=== PATIENT | female | born 1940 | race African-American/Black ===

== ENCOUNTER 2022-12-02 14:10 | Emergency (ER) | payer OTHER, MEDICAID ==
[~2022-12-02] VITALS: Ht 177.8 cm; Wt 87.8 kg
[~2022-12-02 14:10] MED LIST: ACYC-163 PO; ALL300T PO; ASPI325T4 PO; ATE50T PO; DIPH2.5T73 PO; GEMF-19 PO; HYDR-4833 PO
[2022-12-02 16:11] LABS: BUN/Creatinine Ratio 19.4; Calcium 9.1 mg/dL (8.5-10.1); Potassium 4.8 mmol/L (3.5-5.1)
[2022-12-02 16:14] LABS: Bilirubin, Total 0.4 mg/dL (0.2-1.0); Total Protein 7.7 g/dL (6.4-8.2)
[2022-12-02 16:20] LABS: Basophils # (auto) 0.1 10 ^3/uL (0-0.2); Basophils % (auto) 0.9 % (0.0-2.0); Eosinophils # (auto) 0.1 10 ^3/uL (0-0.8); Eosinophils % (auto) 1.6 % (0.0-7.0); Hematocrit 37.3 % (36.0-46.0); Hemoglobin 11.7 g/dL (12.2-16.2); Lymphocytes # (auto) 2.2 10 ^3/uL (0.4-5.4); Lymphocytes % (auto) 29.4 % (10.0-50.0); Mean Corpuscular Hemoglobin 27.2 pg (28.0-32.0); Mean Corpuscular Hgb Conc. 31.3 g/dL (32.0-36.0); Mean Corpuscular Volume 86.8 fL (80.0-100.0); Monocytes # (auto) 0.7 10 ^3/uL (0-1.3); Monocytes % (auto) 9.5 % (0.0-12.0); Neutrophils # (auto) 4.5 10 ^3/uL (1.6-8.6); Neutrophils % (auto) 58.6 % (37.0-80.0); Nucleated Red Blood Cells % 0.1 %; Red Blood Cells 4.29 10^6/uL (4.0-5.20); Red Cell Distribution Width 14.9 % (11.8-14.3); White Blood Cell 7.6 10^3/uL (4.4-10.8)
[2022-12-02] MEDS ORDERED: DOXY100C PO (18:10)
[2022-12-02] MEDS ORDERED: DEXT1SYP9 PO (18:10)
[2022-12-02 19:10] VITALS: BP 166/93
== END 2022-12-02 19:12 | disposition home or self-care (01) ==
LOC: ER 14:10
DX: J44.9 Chronic obstructive pulmonary disease, unspecified (principal); R04.2 Hemoptysis; E78.5 Hyperlipidemia, unspecified; E11.9 Type 2 diabetes mellitus without complications; Z90.710 Acquired absence of both cervix and uterus; Z98.890 Other specified postprocedural states
CPT/HCPCS: 36415; 71046; 80053; 85025

== ENCOUNTER 2023-02-26 08:47 | Emergency (ER) | payer OTHER, MEDICAID ==
[~2023-02-26] VITALS: Ht 177.8 cm; Wt 87.1 kg
[~2023-02-26 08:47] MED LIST changes: -ACET1CAP14 PO
[2023-02-26 10:37] VITALS: BP 140/63
[2023-02-26] MEDS ORDERED: ACETAMINOPHEN 500 MG TAB PO ONE (11:00)
[2023-02-26] MEDS ORDERED: ACET1CAP14 PO (11:05)
== END 2023-02-26 11:18 | disposition home or self-care (01) ==
LOC: ER 08:47
DX: S39.012A Strain of muscle, fascia and tendon of lower back, initial encounter (principal); J44.9 Chronic obstructive pulmonary disease, unspecified; E78.5 Hyperlipidemia, unspecified; I10 Essential (primary) hypertension; Z88.5 Allergy status to narcotic agent; Z88.2 Allergy status to sulfonamides; Z79.899 Other long term (current) drug therapy; Z79.82 Long term (current) use of aspirin; Z90.710 Acquired absence of both cervix and uterus; X58.XXXA Exposure to other specified factors, initial encounter; Y93.89 Activity, other specified; Y92.89 Other specified places as the place of occurrence of the external cause; Y99.8 Other external cause status
CPT/HCPCS: 72100; 93005

== ENCOUNTER → 2023-02-26 | Outpatient (CLI) | payer OTHER ==
[~2023-02-26] MED LIST changes: +ACET1CAP14 PO; +DEXT1SYP9 PO; +DOXY100C PO
[2023-02-26 08:59] LABS: Hematocrit 34.3 % (36.0-46.0); Hemoglobin 11.2 g/dL (12.2-16.2); Mean Corpuscular Hemoglobin 27.8 pg (28.0-32.0); Mean Corpuscular Hgb Conc. 32.7 g/dL (32.0-36.0); Mean Corpuscular Volume 84.9 fL (80.0-100.0); Red Blood Cells 4.04 10^6/uL (4.0-5.20); Red Cell Distribution Width 14.5 % (11.8-14.3); White Blood Cell 7.5 10^3/uL (4.4-10.8)
[2023-02-26 09:07] LABS: Basophils % (manual) 0 (0.0-2.0); Blast Cells 0; Metamyelocytes % 0; Myelocytes % 0; Promyelocytes % 0; Reactive Lymphocytes 0
[2023-02-26 09:23] LABS: Urine Bacteria NONE SEEN /hpf (None Seen); Urine Blood Negative /uL (Negative); Urine Specific Gravity 1.009 (1.001-1.035); Urine WBC 1 /hpf (0 - 5)
[2023-02-26 09:29] LABS: Albumin 3.7 g/dL (3.4-5.0); Calcium 9.5 mg/dL (8.5-10.1); Potassium 3.9 mmol/L (3.5-5.1)
[2023-02-26 09:35] LABS: BUN/Creatinine Ratio 14.3 (10.0-20.0); Bilirubin, Total 0.4 mg/dL (0.2-1.0); Total Protein 7.7 g/dL (6.4-8.2)
[2023-02-26 12:53] LABS: Band Neutrophils % (manual) 1; Eosinophils % (manual) 3 (0-7); Lymphocytes % (manual) 43 (10.0-50.0); Monocytes % (manual) 3 (0-12)
== END | disposition home or self-care (01) ==
LOC: LAB 08:20
PROVIDERS: ATTEND Internal Medicine Hematology & Oncology
DX: J44.9 Chronic obstructive pulmonary disease, unspecified (principal); J20.9 Acute bronchitis, unspecified; H43.12 Vitreous hemorrhage, left eye; E78.5 Hyperlipidemia, unspecified
CPT/HCPCS: 36415; 80053; 80061; 81001; 84439; 84443; 85007; 85027

== ENCOUNTER → 2023-06-11 | Outpatient (CLI) | payer OTHER, MEDICAID ==
[~2023-06-11] MED LIST changes: +ACET1CAP14 PO; -ACYC-163 PO; +ACYC1TAB2 PO; -GEMF-19 PO; +GEMF-66 PO
[2023-06-11 10:10] LABS: Band Neutrophils % (manual) 0; Basophils % (manual) 0 (0.0-2.0); Metamyelocytes % 0
[2023-06-11 10:11] LABS: Blast Cells 0; Myelocytes % 0; Promyelocytes % 0; Reactive Lymphocytes 0
[2023-06-11 10:22] LABS: Nucleated Red Blood Cells % 0.2 %
[2023-06-11 11:06] LABS: Potassium 4.5 mmol/L (3.5-5.1)
[2023-06-11 11:26] LABS: Albumin 3.7 g/dL (3.4-5.0); BUN/Creatinine Ratio 16.7 (10.0-20.0); Bilirubin, Total 0.4 mg/dL (0.2-1.0); Calcium 9.6 mg/dL (8.5-10.1); Total Protein 7.4 g/dL (6.4-8.2)
[2023-06-11 12:30] LABS: Lymphocytes % (manual) 42 (10.0-50.0)
[2023-06-11 12:31] LABS: Eosinophils % (manual) 3 (0-7); Monocytes % (manual) 11 (0-12)
== END | disposition home or self-care (01) ==
LOC: LAB 09:52
PROVIDERS: ATTEND Internal Medicine Hematology & Oncology
DX: Z13.6 Encounter for screening for cardiovascular disorders (principal); E78.5 Hyperlipidemia, unspecified; E78.1 Pure hyperglyceridemia
CPT/HCPCS: 36415; 80053; 80061; 84439; 84443

== ENCOUNTER 2023-08-14 10:04 | Emergency (ER) | payer OTHER, MEDICAID ==
[~2023-08-14] VITALS: Ht 177.8 cm; Wt 82.4 kg
[2023-08-14 10:55] VITALS: BP 160/74; PULSE 64; RESP 16; TEMP 97.3; O2SAT 96
[2023-08-14] MEDS ORDERED: MELO7.5T7 PO (12:40)
== END 2023-08-14 12:42 | disposition home or self-care (01) ==
LOC: ER 10:04
DX: M16.12 Unilateral primary osteoarthritis, left hip (principal); J44.9 Chronic obstructive pulmonary disease, unspecified; E78.5 Hyperlipidemia, unspecified; I10 Essential (primary) hypertension; Z88.2 Allergy status to sulfonamides; Z79.899 Other long term (current) drug therapy; Z79.82 Long term (current) use of aspirin; Z90.710 Acquired absence of both cervix and uterus
CPT/HCPCS: 73502; 74176

== ENCOUNTER → 2023-09-04 | Outpatient (CLI) | payer OTHER, MEDICAID ==
[~2023-09-04] MED LIST changes: +MELO7.5T7 PO
[2023-09-04 10:18] LABS: Basophils # (auto) 0.1 10 ^3/uL (0-0.2); Basophils % (auto) 1.3 % (0.0-2.0); Eosinophils # (auto) 0.2 10 ^3/uL (0-0.8); Eosinophils % (auto) 2.6 % (0.0-7.0); Hematocrit 35.5 % (36.0-46.0); Hemoglobin 11.3 g/dL (12.2-16.2); Lymphocytes # (auto) 2.4 10 ^3/uL (0.4-5.4); Lymphocytes % (auto) 33.8 % (10.0-50.0); Mean Corpuscular Hemoglobin 27.3 pg (28.0-32.0); Mean Corpuscular Hgb Conc. 31.8 g/dL (32.0-36.0); Mean Corpuscular Volume 85.8 fL (80.0-100.0); Monocytes # (auto) 0.8 10 ^3/uL (0-1.3); Neutrophils # (auto) 3.6 10 ^3/uL (1.6-8.6); Neutrophils % (auto) 51.3 % (37.0-80.0); Nucleated Red Blood Cells % 0.1 %; Red Blood Cells 4.14 10^6/uL (4.0-5.20)
[2023-09-04 10:53] LABS: Alkaline Phosphatase 82 U/L (46-116)
[2023-09-04 10:54] LABS: Albumin 4.4 g/dL (3.2-4.8); Anion Gap 7 (5-15); Aspartate Aminotransferase 16 U/L (13-40); BUN/Creatinine Ratio 15.7 (10.0-20.0); Blood Urea Nitrogen 13 mg/dL (9-23); Calcium 9.4 mg/dL (8.5-10.1); Carbon Dioxide 27 mmol/L (20-30); Chloride 105 mmol/L (98-107); Cholesterol 147 mg/dL (< 200); Glucose 85 mg/dL (74-106); LDL Cholesterol 62 mg/dL (< 100); Potassium 4.6 mmol/L (3.5-5.1); Sodium 139 mmol/L (136-145)
[2023-09-04 10:55] LABS: Bilirubin, Total 0.4 mg/dL (0.2-1.0)
[2023-09-04 11:30] LABS: Alanine Aminotransferase < 9 U/L (7-40)
== END | disposition home or self-care (01) ==
LOC: LAB 09:53
PROVIDERS: ATTEND Internal Medicine Hematology & Oncology
DX: N18.30 Chronic kidney disease, stage 3 unspecified (principal); E78.5 Hyperlipidemia, unspecified
CPT/HCPCS: 36415; 80053; 82465; 83721; 85025

== ENCOUNTER → 2024-03-10 | Outpatient (CLI) | payer OTHER, MEDICAID ==
[~2024-03-10] MED LIST changes: -ASPI325T4 PO; +ASPI325T6 PO
[2024-03-10 11:10] LABS: Basophils # (auto) 0.1 10 ^3/uL (0-0.2); Basophils % (auto) 1.2 % (0.0-2.0); Eosinophils # (auto) 0.1 10 ^3/uL (0-0.8); Eosinophils % (auto) 1.6 % (0.0-7.0); Hematocrit 35.7 % (36.0-46.0); Hemoglobin 11.5 g/dL (12.2-16.2); Lymphocytes # (auto) 1.8 10 ^3/uL (0.4-5.4); Lymphocytes % (auto) 26.8 % (10.0-50.0); Mean Corpuscular Hemoglobin 27.8 pg (28.0-32.0); Mean Corpuscular Hgb Conc. 32.3 g/dL (32.0-36.0); Mean Corpuscular Volume 86.3 fL (80.0-100.0); Monocytes # (auto) 0.6 10 ^3/uL (0-1.3); Monocytes % (auto) 9.6 % (0.0-12.0); Neutrophils # (auto) 4.1 10 ^3/uL (1.6-8.6); Neutrophils % (auto) 60.8 % (37.0-80.0); Nucleated Red Blood Cells % 0.1 %; Red Blood Cells 4.14 10^6/uL (4.0-5.20); Red Cell Distribution Width 15.1 % (11.8-14.3); White Blood Cell 6.8 10^3/uL (4.4-10.8)
[2024-03-10 12:01] LABS: Alkaline Phosphatase 83 U/L (46-116); Anion Gap 8 (5-15); BUN/Creatinine Ratio 18.7 (10.0-20.0); Blood Urea Nitrogen 17 mg/dL (9-23); Calcium 9.6 mg/dL (8.5-10.1); Carbon Dioxide 24 mmol/L (20-30); Chloride 107 mmol/L (98-107); Glucose 97 mg/dL (74-106); LDL Cholesterol 54 mg/dL (< 100); Potassium 3.7 mmol/L (3.5-5.1); Sodium 139 mmol/L (136-145); Triglycerides 89 mg/dL (< 150)
[2024-03-10 12:02] LABS: Albumin 4.4 g/dL (3.2-4.8); Aspartate Aminotransferase 17 U/L (13-40); Cholesterol 153 mg/dL (< 200); HDL Cholesterol 74 mg/dL (40-59)
[2024-03-10 12:03] LABS: Thyroid Stimulating Hormone 2.41 uIU/mL (0.55-4.78); Total Protein 7.2 g/dL (5.7-8.2)
[2024-03-10 12:16] LABS: Bilirubin, Total 0.5 mg/dL (0.2-1.0)
[2024-03-10 12:23] LABS: Alanine Aminotransferase < 9 U/L (7-40)
[2024-03-10 15:08] LABS: Urine Blood Negative /uL (Negative); Urine Clarity Clear (Clear); Urine Color Light-Yellow (Yellow); Urine Hyaline Cast FEW /lpf (0 - 2); Urine Mucus FEW (None Seen); Urine Protein, UAD Negative (Negative); Urine Specific Gravity 1.014 (1.001-1.035); Urine Urobilinogen Normal (Negative); Urine WBC 1 /hpf (0 - 5); Urine pH 5.5 (5.0-9.0)
[2024-03-10 16:01] LABS: Urine Bacteria NONE SEEN /hpf (None Seen)
[2024-03-18 19:06] LABS: Vitamin D 25-Hydroxy 7.8 ng/mL (.); Vitamin D-2 25-Hydroxy <1.0 ng/mL (.); Vitamin D-3 25-Hydroxy 7.7 ng/mL (.)
== END | disposition home or self-care (01) ==
LOC: LAB 10:32
PROVIDERS: ATTEND Internal Medicine Hematology & Oncology
DX: I34.0 Nonrheumatic mitral (valve) insufficiency (principal); E78.1 Pure hyperglyceridemia; I25.9 Chronic ischemic heart disease, unspecified; R73.03 Prediabetes; K21.9 Gastro-esophageal reflux disease without esophagitis; Z79.899 Other long term (current) drug therapy
CPT/HCPCS: 36415; 80053; 80061; 81001; 82306; 83036; 83615; 84443; 85025

== ENCOUNTER → 2024-03-18 | Outpatient (CLI) | payer OTHER, MEDICAID | END | disposition home or self-care (01) | LOC: LAB 06:43 | PROVIDERS: ATTEND Internal Medicine Hematology & Oncology | DX: Z12.11 Encounter for screening for malignant neoplasm of colon (principal) | CPT/HCPCS: 82270 ==

== ENCOUNTER → 2024-06-02 | Outpatient (CLI) | payer OTHER, MEDICAID ==
[2024-06-02 08:41] LABS: Urine Bacteria None Seen /hpf (None Seen)
[2024-06-02 09:08] LABS: Basophils # (auto) 0.1 10 ^3/uL (0-0.2); Basophils % (auto) 1.2 % (0.0-2.0); Eosinophils # (auto) 0.1 10 ^3/uL (0-0.8); Eosinophils % (auto) 1.8 % (0.0-7.0); Hematocrit 36.9 % (36.0-46.0); Hemoglobin 11.9 g/dL (12.2-16.2); Lymphocytes # (auto) 2.6 10 ^3/uL (0.4-5.4); Lymphocytes % (auto) 36.3 % (10.0-50.0); Mean Corpuscular Hemoglobin 28.3 pg (28.0-32.0); Mean Corpuscular Hgb Conc. 32.2 g/dL (32.0-36.0); Mean Corpuscular Volume 87.8 fL (80.0-100.0); Monocytes # (auto) 0.8 10 ^3/uL (0-1.3); Monocytes % (auto) 11.3 % (0.0-12.0); Neutrophils # (auto) 3.6 10 ^3/uL (1.6-8.6); Neutrophils % (auto) 49.4 % (37.0-80.0); Nucleated Red Blood Cells % 0.1 %; White Blood Cell 7.2 10^3/uL (4.4-10.8)
[2024-06-02 09:22] LABS: Urine Blood Negative /uL (Negative); Urine Clarity Clear (Clear); Urine Color Colorless (Yellow); Urine Protein, UAD Negative (Negative); Urine Specific Gravity 1.008 (1.001-1.035); Urine Urobilinogen Normal (Negative); Urine WBC 1 /hpf (0 - 5)
[2024-06-02 09:54] LABS: Albumin 4.4 g/dL (3.2-4.8); Alkaline Phosphatase 77 U/L (46-116); Anion Gap 7 (5-15); Aspartate Aminotransferase 15 U/L (13-40); BUN/Creatinine Ratio 22.9 (10.0-20.0); Blood Urea Nitrogen 22 mg/dL (9-23); Carbon Dioxide 25 mmol/L (20-30); Chloride 108 mmol/L (98-107); Cholesterol 164 mg/dL (< 200); Glucose 89 mg/dL (74-106); LDL Cholesterol 66 mg/dL (< 100); Potassium 4.4 mmol/L (3.5-5.1); Sodium 140 mmol/L (136-145); Triglycerides 65 mg/dL (< 150)
[2024-06-02 09:55] LABS: Bilirubin, Direct 0.2 mg/dL (<0.3); Bilirubin, Total 0.5 mg/dL (0.2-1.0); HDL Cholesterol 79 mg/dL (40-59); Total Protein 6.8 g/dL (5.7-8.2)
[2024-06-02 10:08] LABS: Alanine Aminotransferase < 9 U/L (7-40)
== END | disposition home or self-care (01) ==
LOC: LAB 08:22
PROVIDERS: ATTEND Internal Medicine Hematology & Oncology
DX: I10 Essential (primary) hypertension (principal); Z96.651 Presence of right artificial knee joint
CPT/HCPCS: 36415; 80048; 80061; 80076; 81001; 83036; 83615; 85025; 87086

== ENCOUNTER → 2024-09-23 | Outpatient (CLI) | payer OTHER, MEDICAID ==
[2024-09-23 11:42] LABS: Basophils # (auto) 0.1 10 ^3/uL (0-0.2); Basophils % (auto) 1.1 % (0.0-2.0); Eosinophils # (auto) 0.1 10 ^3/uL (0-0.8); Eosinophils % (auto) 1.3 % (0.0-7.0); Hematocrit 35.3 % (36.0-46.0); Hemoglobin 11.6 g/dL (12.2-16.2); Lymphocytes # (auto) 1.7 10 ^3/uL (0.4-5.4); Lymphocytes % (auto) 22.8 % (10.0-50.0); Mean Corpuscular Hemoglobin 28.9 pg (28.0-32.0); Mean Corpuscular Hgb Conc. 32.8 g/dL (32.0-36.0); Monocytes # (auto) 0.7 10 ^3/uL (0-1.3); Monocytes % (auto) 9.4 % (0.0-12.0); Neutrophils # (auto) 4.8 10 ^3/uL (1.6-8.6); Neutrophils % (auto) 65.4 % (37.0-80.0); Nucleated Red Blood Cells % 0.1 %; Platelet Count (auto) 256 10^3/uL (140-450); Red Blood Cells 4.01 10^6/uL (4.0-5.20); Red Cell Distribution Width 15.3 % (11.8-14.3); White Blood Cell 7.3 10^3/uL (4.4-10.8)
[2024-09-23 12:03] LABS: Alanine Aminotransferase 10 U/L (7-40); Alkaline Phosphatase 65 U/L (46-116); Anion Gap 4 (5-15); Aspartate Aminotransferase 12 U/L (13-40); Blood Urea Nitrogen 17 mg/dL (9-23); Calcium 10.1 mg/dL (8.7-10.4); Carbon Dioxide 30 mmol/L (20-31); Chloride 103 mmol/L (98-107); Glucose 94 mg/dL (74-106); LDL Cholesterol 72 mg/dL (< 100); Sodium 137 mmol/L (136-145); Triglycerides 76 mg/dL (< 150)
[2024-09-23 12:04] LABS: Albumin 4.3 g/dL (3.2-4.8); Bilirubin, Total 0.5 mg/dL (0.2-1.0); Cholesterol 176 mg/dL (< 200); HDL Cholesterol 83 mg/dL (40-59); Total Protein 7.2 g/dL (5.7-8.2)
== END | disposition home or self-care (01) ==
LOC: LAB 10:48
PROVIDERS: ATTEND Internal Medicine Hematology & Oncology
DX: I11.9 Hypertensive heart disease without heart failure (principal); I25.9 Chronic ischemic heart disease, unspecified; E78.5 Hyperlipidemia, unspecified; I34.9 Nonrheumatic mitral valve disorder, unspecified; F11.20 Opioid dependence, uncomplicated; M25.50 Pain in unspecified joint; H35.3210 Exudative age-related macular degeneration, right eye, stage unspecified
CPT/HCPCS: 36415; 80053; 80061; 82306; 83036; 84443; 85025

== ENCOUNTER → 2024-12-29 | Outpatient (CLI) | payer OTHER, MEDICAID ==
[2024-12-29 11:22] LABS: Basophils # (auto) 0.1 10 ^3/uL (0-0.2); Basophils % (auto) 1.4 % (0.0-2.0); Eosinophils # (auto) 0.1 10 ^3/uL (0-0.8); Eosinophils % (auto) 1.8 % (0.0-7.0); Hematocrit 36.4 % (36.0-46.0); Hemoglobin 11.7 g/dL (12.2-16.2); Lymphocytes # (auto) 2.1 10 ^3/uL (0.4-5.4); Mean Corpuscular Hemoglobin 27.8 pg (28.0-32.0); Mean Corpuscular Hgb Conc. 32.1 g/dL (32.0-36.0); Mean Corpuscular Volume 86.4 fL (80.0-100.0); Monocytes # (auto) 0.7 10 ^3/uL (0-1.3); Monocytes % (auto) 10.9 % (0.0-12.0); Neutrophils # (auto) 3.2 10 ^3/uL (1.6-8.6); Neutrophils % (auto) 51.9 % (37.0-80.0); Nucleated Red Blood Cells % 0.2 %; Platelet Count (auto) 259 10^3/uL (140-450); Red Blood Cells 4.21 10^6/uL (4.0-5.20); Red Cell Distribution Width 14.4 % (11.8-14.3); White Blood Cell 6.1 10^3/uL (4.4-10.8)
[2024-12-29 12:39] LABS: Alkaline Phosphatase 64 U/L (46-116); Anion Gap 13 (5-15); BUN/Creatinine Ratio 20.4 (10.0-20.0); Blood Urea Nitrogen 19 mg/dL (9-23); Calcium 10.3 mg/dL (8.7-10.4); Carbon Dioxide 22 mmol/L (20-31); Chloride 105 mmol/L (98-107); Glucose 83 mg/dL (74-106); Sodium 140 mmol/L (136-145)
[2024-12-29 12:40] LABS: Albumin 4.6 g/dL (3.2-4.8); Aspartate Aminotransferase 16 U/L (13-40)
[2024-12-29 12:41] LABS: Bilirubin, Total 0.7 mg/dL (0.2-1.0)
[2024-12-29 12:42] LABS: Alanine Aminotransferase < 9 U/L (7-40)
[2024-12-30 15:55] LABS: Cholesterol 163 mg/dL (< 200); Triglycerides 91 mg/dL (< 150)
[2024-12-30 15:56] LABS: HDL Cholesterol 79 mg/dL (40-59); LDL Cholesterol 64 mg/dL (< 100)
== END | disposition home or self-care (01) ==
LOC: LAB 09:53
PROVIDERS: ATTEND Internal Medicine Hematology & Oncology
DX: I34.9 Nonrheumatic mitral valve disorder, unspecified (principal); I10 Essential (primary) hypertension; I25.9 Chronic ischemic heart disease, unspecified; E78.5 Hyperlipidemia, unspecified; H35.3210 Exudative age-related macular degeneration, right eye, stage unspecified; M25.50 Pain in unspecified joint; F11.20 Opioid dependence, uncomplicated
CPT/HCPCS: 36415; 80053; 80061; 82306; 83036; 84443; 85025

== ENCOUNTER → 2025-04-01 | Outpatient (CLI) | payer OTHER, MEDICAID ==
[2025-04-01 14:23] LABS: Basophils # (auto) 0 10 ^3/uL (0-0.2); Basophils % (auto) 0.2 % (0.0-2.0); Eosinophils # (auto) 0.1 10 ^3/uL (0-0.8); Eosinophils % (auto) 1.8 % (0.0-7.0); Hematocrit 34.8 % (36.0-46.0); Hemoglobin 11.2 g/dL (12.2-16.2); Lymphocytes # (auto) 2.6 10 ^3/uL (0.4-5.4); Lymphocytes % (auto) 42.7 % (10.0-50.0); Mean Corpuscular Hemoglobin 28.1 pg (28.0-32.0); Mean Corpuscular Hgb Conc. 32.2 g/dL (32.0-36.0); Mean Corpuscular Volume 87.3 fL (80.0-100.0); Monocytes # (auto) 0.7 10 ^3/uL (0-1.3); Monocytes % (auto) 11.7 % (0.0-12.0); Neutrophils # (auto) 2.7 10 ^3/uL (1.6-8.6); Neutrophils % (auto) 43.6 % (37.0-80.0); Nucleated Red Blood Cells % 0.1 %; Platelet Count (auto) 230 10^3/uL (140-450); Red Blood Cells 3.99 10^6/uL (4.0-5.20); Red Cell Distribution Width 14.9 % (11.8-14.3); White Blood Cell 6.1 10^3/uL (4.4-10.8)
[2025-04-01 14:42] LABS: Albumin 4.6 g/dL (3.2-4.8); Alkaline Phosphatase 70 U/L (46-116); Anion Gap 9 (5-15); Aspartate Aminotransferase 15 U/L (13-40); BUN/Creatinine Ratio 21.2 (10.0-20.0); Blood Urea Nitrogen 21 mg/dL (9-23); Calcium 10.1 mg/dL (8.7-10.4); Carbon Dioxide 25 mmol/L (20-31); Chloride 105 mmol/L (98-107); Glucose 82 mg/dL (74-106); LDL Cholesterol 57 mg/dL (< 100); Potassium 4.2 mmol/L (3.5-5.1); Sodium 139 mmol/L (136-145); Total Protein 7.2 g/dL (5.7-8.2); Triglycerides 77 mg/dL (< 150)
[2025-04-01 14:43] LABS: Cholesterol 145 mg/dL (< 200)
[2025-04-01 14:44] LABS: Alanine Aminotransferase < 9 U/L (7-40); Bilirubin, Total 0.4 mg/dL (0.2-1.0); HDL Cholesterol 60 mg/dL (40-59)
== END | disposition home or self-care (01) ==
LOC: LAB 13:52
PROVIDERS: ATTEND Internal Medicine Hematology & Oncology
DX: I10 Essential (primary) hypertension (principal); I34.9 Nonrheumatic mitral valve disorder, unspecified; I25.9 Chronic ischemic heart disease, unspecified; E78.5 Hyperlipidemia, unspecified; H35.3210 Exudative age-related macular degeneration, right eye, stage unspecified; M25.50 Pain in unspecified joint; F11.20 Opioid dependence, uncomplicated
CPT/HCPCS: 36415; 80053; 80061; 82306; 83036; 84443; 85025

== ENCOUNTER 2025-05-18 11:23 | Inpatient (IN) | payer OTHER, MEDICAID ==
[~2025-05-18] VITALS: Ht 177.8 cm; Wt 84.9 kg
--- NOTE | 2025-05-18 12:00 | ED.PDOC ---
HPI Comments 84 y.o female with PMHx of HTN, COPD, HLD, hypoglycemia, presents tot he ED for an evaluation of high blood pressure. Patient reports around [id number] today she developed left chest tightness and SOB that has since resolved. Patient presents with blood pressure of 175/92. Patient is compliant with medications. Patient denies any nausea, vomiting, diarrhea, abdominal pain, fever, chills. Chief Complaint: High Blood Pressure Time Seen by MD: 11:51 Primary Care Provider: MARLON Reviewed Notes: Nurses Notes, Medications, Allergies Allergies: Coded Allergies: Morphine (Verified Allergy, Severe, 09/20/13) Sulfa Drugs (Verified Allergy, Unknown, 05/26/19) Home Meds Active Scripts Meloxicam (Meloxicam) 7.5 Mg Tab, 7.5 MG PO BID, #30 TAB Prov:LAZ CABRERA 08/14/23 Acetaminophen (Tylenol) 325 Mg Cap, 325 MG PO Q4HPRN PRN, #30 CAP 0 Refills Take 1-2 caps po q4h prn for pain. (Do not exceed 3,000mg of acetaminophen in 24 hours) Prov:LINDA ROSEN DOCUMENTATION CLERK 02/26/23 Dextromethorphan-Guaifenesin (Robitussin-Dm) 10 Ml Sr, 10 ML PO BID for 10 Days, #200 SYP Prov:FUAD VALENCIA MD 12/02/22 Doxycycline Hyclate (Vibramycin) 100 Mg Cap, 1 CAP PO BID for 10 Days, #20 CAP Prov:FUAD VALENCIA MD 12/02/22 Reported Medications Hydrocodone-Acetaminophen ([place] 5/325MG) 1 Tab Tb, 1 TAB PO Q6HP PRN for PAIN SCALE 1 THRU 6, #90 TAB 05/27/19 Diphenoxylate W/ Atropine (Lomotil) 2.5 Mg Tab, 1 TAB PO TID PRN for FOR DIARRHEA, #30 TAB 05/27/19 Gemfibrozil (Gemfibrozil) 600 Mg Tab, 1 TAB PO DAILY, #60 TAB 5 Refills 05/27/19 Atenolol (TENORMIN TABLET) 50 Mg Tb, 1 TAB PO DAILY, #30 TAB 5 Refills 05/27/19 Allopurinol (ZYLOPRIM TABLET) 300 Mg Tb, 1 TAB PO DAILY, #30 TAB 5 Refills 05/27/19 Aspirin (Aspirin) 325 Mg Tab, 1 TAB PO DAILY, #30 TAB 5 Refills 05/27/19 Acyclovir (Acyclovir) 400 Mg Tab, 400 MG PO BID, TAB 05/27/19 Information Source: Patient Mode of Arrival: Ambulatory Severity: Moderate Timing: Hours Duration: Since onset Location: Chest (L) Radiation: No Radiation Quality: Tightness Onset: At Rest Cardiac Risk Factors: Family History, Hyperlipidemia, HTN PE Risk Factors: None History of: None Associated Signs and Symptoms: SOB Past Medical History PAST MEDICAL HISTORY: COPD, Gout, High Lipids, HTN Surgical History: Hysterectomy Surgical History (Other): heart valve replacement, bilateral knee replacement ADAPTIVE PHYSICAL EDUCATOR History: No Pertinent ADAPTIVE PHYSICAL EDUCATOR History Family History Family History: Reviewed,noncontributory to illness Social History Smoker: Non-Smoker Alcohol: Occasionally Drugs: Denies Drug Use Lives In: Home Constitutional: denies: chills, diaphoresis, fatigue, fever, malaise, sweats, weakness, others EENTM: denies: blurred vision, double vision, ear bleeding, ear discharge, ear drainage, ear pain, ear ringing, eye pain, eye redness, hearing loss, mouth pain, mouth swelling, nasal discharge, nose bleeding, nose congestion, nose pain, photophobia, tearing, throat pain, throat swelling, voice changes, others Respiratory: reports: SOB at rest, shortness of breath; denies: cough, hemoptysis, orthopnea, SOB with excertion, stridor, wheezing, others Cardiovascular: denies: chest pain, dizzy spells, diaphoresis, Dyspnea on exertion, edema, irregular heart beat, left arm pain, lightheadedness, palpitations, PND, syncope, others Gastrointestinal: denies: abdomen distended, abdominal pain, blood streaked bowels, constipated, diarrhea, dysphagia, difficulty swallowing, hematemesis, melena, nausea, poor appetite, poor fluid intake, rectal bleeding, rectal pain, vomiting, others Genitourinary: denies: abnormal vagina bleeding, burning, dyspareunia, dysuria, flank pain, frequency, hematuria, incontinence, pain, , vagina discharge, urgency, others Neurological: denies: dizziness, fainting, headache, left sided numbness, left sided weakness, numbness, paresthesia, pre-existing deficit, right sided numbness, right sided weakness, seizure, speech problems, tingling, tremors, weakness, others Musculoskeletal: denies: back pain, gout, joint pain, joint swelling, muscle pain, muscle stiffness, neck pain, others Integumetry: denies: bruises, change in color, change in hair/nails, dryness, laceration, lesions, lumps, rash, wounds, others Allergic/Immunocompromised: denies: Difficulty Healing, Frequent Infections, Hives, Itching, others Hematologic/Lymphatic: denies: anemia, blood clots, easy bleeding, easy bruising, swollen glands, others Endocrine: denies: excessive hunger, excessive sweating, excessive thirst, excessive urination, flushing, intolerance to cold, intolerance to heat, unexplained weight gain, unexplained weight loss, others Psychiatric: denies: anxiety, bipolar disorder, depression, hopeless, panic disorder, schizophrenia, sleepless, suicidal, others All Other Systems: Reviewed and Negative Physical Exam General Appearance: Moderate Distress HEENT: Pale Conjuntivae (L), Pale Conjuntivae (R), Pharynx Normal, TMs Normal Neck: Full Range of Motion, Non-Tender, Normal, Normal Inspection Respiratory: Chest Non-Tender, Lungs Clear, No Accessory Muscle Use, No Respiratory Distress, Normal Breath Sounds Cardiovascular: No Edema, No JVD, No Murmur, No Gallop, Normal Peripheral Pulses, Regular Rate/Rhythm Breast Exam: Deferred Gastrointestinal: No Organomegaly, Non Tender, No Pulsatile Mass, Normal Bowel Sounds, Soft Genitalia: Deferred Pelvic: Deferred Rectal: Deferred Extremities: No calf tenderness, Normal capillary refill, No pedal edema Musculoskeletal : Apperance: Normal Neurologic: Alert, finish mixer II-XII nml as Tested, Motor Weakness, Normal Affect, Normal Mood, No Sensory Deficits Cerebellar Function: Normal Reflexes: Normal Skin: Dry, Normal Color, Warm Lymphatic: No Adenopathy EKG EKG : Pulse Rate (adult): 63 Cardiac Rhythm: NSR Block: RBBB (incomplete ) Was a procedure done? Was a procedure done?: No CP Differential Dx Differential Diagnosis: N/A Differential Diagnosis: HTN Essential, HTN Accelerated, HTN Encephalopathy Differential Diagnosis: Angina, Chest Wall Pain, Cholelithiasis, Myocardial Infarction, Pericarditis X-Ray, Labs, Meds, VS Vital Signs Date Time Temp Pulse Resp B/P (MAP) Pulse Ox O2 Delivery O2 Flow Rate FiO2 05/18/25 14:32 59 05/18/25 13:30 63 202/101 05/18/25 12:01 97.9 80 18 175/92 (119) 95 97.9 05/18/25 12:00 63 05/18/25 11:49 63 Lab Test 05/18/25 16:07 05/18/25 15:42 05/18/25 13:44 05/18/25 12:48 Range/Units Urine Color Light-yellow Yellow Urine Clarity Clear Clear Urine pH 6.0 5.0-9.0 Urine Specific [place] 1.014 1.001-1.035 Urine Protein Negative Negative Urine Ketones Negative Negative Urine Blood Negative Negative /uL Urine Nitrite Negative Negative Urine Bilirubin Negative Negative Urine Urobilinogen Normal Negative mg/dL Urine Leukocyte Esterase Negative Negative /uL Urine RBC <1 0 - 4 /hpf Urine Microscopic WBC 2 0-5 /HPF Urine Squamous Epithelial Cells Few <5 /hpf Urine Bacteria None seen None Seen /hpf Urine Glucose Normal Normal mg/dL Urine Opiates Screen Neg NEGATIVE Urine Fentanyl Screen Neg NEGATIVE Urine Barbiturates Screen Neg NEGATIVE Urine Phencyclidine Screen Neg NEGATIVE Urine Amphetamines Screen Neg NEGATIVE Urine Benzodiazepines Screen Neg NEGATIVE Urine Cocaine Screen Neg NEGATIVE Urine Cannabinoids Screen Neg NEGATIVE Troponin I High Sensitivity 56 *H 58 *H 59 *H </=34 ng/L White Blood Count 6.8 4.4-10.8 10^3/uL Red Blood Count 4.09 4.0-5.20 10^6/uL Hemoglobin 11.5 L 12.2-16.2 g/dL Hematocrit 36.0 36.0-46.0 % Mean Corpuscular Volume 88.1 80.0-100.0 fL Mean Corpuscular Hemoglobin 28.1 28.0-32.0 pg Mean Corpuscular Hemoglobin Concent 31.9 L 32.0-36.0 g/dL Red Cell Distribution Width 14.4 H 11.8-14.3 % Platelet Count 235 140-450 10^3/uL Mean Platelet Volume 8.6 6.9-10.8 fL Neutrophils (%) (Auto) 56.2 37.0-80.0 % Lymphocytes (%) (Auto) 30.3 10.0-50.0 % Monocytes (%) (Auto) 10.9 0.0-12.0 % Eosinophils (%) (Auto) 1.4 0.0-7.0 % Basophils (%) (Auto) 1.2 0.0-2.0 % Neutrophils # (Auto) 3.8 1.6-8.6 10 ^3/uL Lymphocytes # (Auto) 2.1 0.4-5.4 10 ^3/uL Monocytes # (Auto) 0.7 0-1.3 10 ^3/uL Eosinophils # (Auto) 0.1 0-0.8 10 ^3/uL Basophils # (Auto) 0.1 0-0.2 10 ^3/uL Nucleated Red Blood Cells 0.0 % Prothrombin Time 10.9 9.3-11.8 sec Prothrombin Time INR 1.03 0.9-1.15 Sodium Level 141 136-145 mmol/L Potassium Level 3.8 3.5-5.1 mmol/L Chloride Level 108 H 98-107 mmol/L Carbon Dioxide Level 24 20-31 mmol/L Anion Gap 9 5-15 Blood Urea Nitrogen 17 9-23 mg/dL Creatinine 1.37 H 0.550-1.02 mg/dL Glomerular Filtration Rate Calc 39 >90 mL/min BUN/Creatinine Ratio 12.4 10.0-20.0 Serum Glucose 107 H 74-106 mg/dL Hemoglobin A1c 5.4 <5.7 % A1C Calcium Level 9.9 8.7-10.4 mg/dL Magnesium Level 1.9 1.6-2.6 mg/dL B-Type Natriuretic Peptide 411.03 0-100 pg/mL Triglycerides Level 59 < 150 mg/dL Cholesterol Level 138 < 200 mg/dL LDL Cholesterol 47 < 100 mg/dL HDL Cholesterol 73 H 40-59 mg/dL Current Medications Medications (Trade) Dose Ordered Sig/Alexa Route Start Time Stop Time Status Last Admin Aspirin 162 mg ONCE ONCE PO 05/18/25 12:00 05/18/25 12:03 DC 05/18/25 12:00 Atorvastatin Calcium (Lipitor) 80 mg ONCE ONCE PO 05/18/25 13:30 05/18/25 13:31 DC 05/18/25 13:30 Metoprolol Tartrate (Lopressor Tablet) 25 mg ONCE ONCE PO 05/18/25 13:30 05/18/25 13:31 DC 7/7/25 13:30 EXAM: XY CHEST TWO VIEWS ROUTINE IMPRESSION: Postoperative changes of the heart without evidence of acute intrathoracic process. IV Hep-Lock was established. After seeing the 1st EKGs there was a concern about some ST-T changes so we did send the EKG to Dr. Mckeon who is the genetic counselor on-call We determined that this is not a STEMI. The patient had the 1st troponin came back at 58 and the 2nd one at 59 The patient is being admitted at this time The patient did receive aspirin here in the emergency department's The BNP is 411 The creatinine is 1.37 The rest of the CBC and chemistry panel are within normal limits The patient is admitted at this time Images Reviewed?: Images reviewed and evaluated by me Time of 1ST Reevaluation: 12:00 Reevaluation 1ST: Unchanged Patient Education/Counseling: Diagnosis, Treatment, Prognosis Family Education/Counseling: No Family Present SEPSIS Sepsis Screen Physician Orders Chest Two Views Routine (05/18/25 11:59) Heplock Iv (05/18/25 11:59) Electronic Development Technician (05/18/25 11:59) Blood Pressure (05/18/25 11:59) Pulse Oximetry (05/18/25 11:59) Electrocardigram (05/18/25 11:59) Electrocardigram (05/18/25 12:59) Electrocardigram (05/18/25 14:59) Aspirin Tablet (05/19/25 10:00) Metoprolol Tartrate Tablet (Lopressor Ta (05/18/25 22:00) Amlodipine Tablet (Norvasc Tablet) (05/19/25 10:00) Atorvastatin (Lipitor) (05/19/25 22:00) Losartan Tablet (Cozaar Tablet) (05/19/25 10:00) Hydralazine Injection (Apresoline Inject (05/18/25 16:30) Allopurinol Tablet (Zyloprim Tablet) (05/19/25 10:00) Allergies (05/18/25 16:28) Code Status (05/18/25 16:28) Sodium Chloride Lock (Saline Lock Ns) (05/18/25 22:00) Oxygen Per Hour (05/18/25 16:28) Hydrocodone-Acet 5/325mg Tab ([place] 5/32 (05/18/25 16:30) Ondansetron Hcl (Zofran) (05/18/25 16:30) Docusate Sodium Capsule (Colace Capsule) (05/18/25 16:30) Fall Risk Precautions In Place QSHIFT (05/18/25 16:28) Complete Blood Count (05/19/25 04:00) Comprehensive Metabolic Panel (05/19/25 04:00) Cardiac Diet-2gna,Lofat,Lochol (05/18/25 Dinner) Condition: Serious (05/18/25 16:28) Acetaminophen Tablet (Tylenol Tablet) (05/18/25 16:30) Maintain Bed Rest (05/18/25 16:28) Sequential Compression Device (05/18/25 ) Vital Signs Date Time Temp Pulse Resp B/P (MAP) Pulse Ox O2 Delivery O2 Flow Rate FiO2 05/18/25 14:32 59 05/18/25 13:30 63 202/101 05/18/25 12:01 97.9 80 18 175/92 (119) 95 97.9 05/18/25 12:00 63 05/18/25 11:49 63 Laboratory Tests Test 05/18/25 12:48 White Blood Count 6.8 10^3/uL (4.4-10.8) Medications Medications Dose Ordered Sig/Alexa Route Start Time Stop Time Status Last Admin Dose Admin Aspirin 162 mg ONCE ONCE PO 05/18/25 12:00 05/18/25 12:03 DC 05/18/25 12:00 Atorvastatin Calcium 80 mg ONCE ONCE PO 05/18/25 13:30 05/18/25 13:31 DC 05/18/25 13:30 Metoprolol Tartrate 25 mg ONCE ONCE PO 05/18/25 13:30 05/18/25 13:31 DC 05/18/25 13:30 Departure 1 Departure Time of Disposition: 15:54 Impression: Primary Impression: Acute coronary syndrome Additional Impression: Elevated troponin Disposition: 09 ADMITTED INPATIENT Admit to: Tele Condition: Fair Critical Care Note Critical Care Time?: Yes (45 min-critical care time only) Stability Stability form required: Yes Unstable for transfer: Telemetry monitoring (Telemetry monitoring required), ED Physician Assesment (Clinical assesment) Heart Score Heart Score: Heart Score Response (Comments) Value History Moderate Suspicious 1 EKG Repolarization Disturb 1 Age >65 2 Risk Factors >3 or Hx ASHD 2 Troponin 1-2 x's Normal limit 1 Total 7 I personally scribed for LUCINA BLISS MD ([email or web address]) on 05/18/25 at 12:00. Electronically submitted by Evelin Young ([facility]). I personally scribed for LUCINA BLISS MD ([email or web address]) on 05/18/25 at 13:06. Electronically submitted by Evelin Young ([facility]). LUCINA BLISS MD May 18, 2025 12:00
--- NOTE | 2025-05-18 12:32 | DVH ---
EXAM: XY CHEST TWO VIEWS ROUTINE HISTORY: cp, hypertension COMPARISON: CHEST TWO VIEWS ROUTINE on DOS: 12/02/22, CXR2 on DOS: 12/02/22, CHEST TWO VIEWS ROUTINE on DOS: 05/26/19 TECHNIQUE: PA and lateral views of the chest were performed. FINDINGS: No pneumothorax, pulmonary edema, pleural effusions, or consolidative infiltrates. The heart is not enlarged. There are postoperative changes of median sternotomy. 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 There may be a chronic midthoracic mild compression fracture versus artif actual appearance due to degenerative disc disease. IMPRESSION: Postoperative changes of the heart without evidence of acute intrathoracic process.
[2025-05-18 13:13] LABS: Hematocrit 36.0 % (36.0-46.0); Hemoglobin 11.5 g/dL (12.2-16.2); Mean Corpuscular Hemoglobin 28.1 pg (28.0-32.0); Mean Corpuscular Volume 88.1 fL (80.0-100.0); Nucleated Red Blood Cells % 0.0 %
--- NOTE | 2025-05-18 13:15 | DVHCONRES ---
Date Seen: May 18, 2025 Resident Creating Document: ANA PAULA DOTSON RESDIENT History of Present Illness This is an 84-year-old female with past medical history of COPD, hypertension, dyslipidemia and chronic low back pain came to the hospital due to hypotension. With the patient, she has really take her blood pressure before taking her meds. Today morning, at 3:00am, blood pressure was 212/110, and she took her medicine, but on follow up of high blood checkup, BP was still high. She also reports an episode of left-sided chest tightness which lasted for few minutes. She denies fever, palpitation, shortness of breath, cough, or any recent sick contact. PMHx: COPD, hypertension dyslipidemia, chronic low back pain PSHx: Mitral valve repair in 2003 Social history: Ex-smoker with 25 pack year history Home medication: Irbesartan 300 mg daily, atenolol 50 mg daily, metoprolol 25 mg daily, aspirin, gemfibrozil, amlodipine 5 mg daily, Allergic history: Morphine and sulfa drugs Patient seen and examined at bedside. Patient currently has no symptoms. Family History: Arthritis G8 MOTHER G8 SISTER Asthma G8 SISTER G8 SISTER Chronic obstructive pulmonary disease G8 BROTHER G8 SISTER Diabetes mellitus G8 SISTER Hypertension G8 MOTHER G8 FATHER G8 BROTHER G8 BROTHER G8 BROTHER G8 SISTER G8 SISTER G8 SISTER Thyroid disease G8 SISTER Allergies: Coded Allergies: Morphine (Verified Allergy, Severe, 09/20/13) Sulfa Drugs (Verified Allergy, Unknown, 05/26/19) Home Meds Active Scripts Meloxicam (Meloxicam) 7.5 Mg Tab, 7.5 MG PO BID, #30 TAB Prov:LAZ CABRERA 08/14/23 Acetaminophen (Tylenol) 325 Mg Cap, 325 MG PO Q4HPRN PRN, #30 CAP 0 Refills Take 1-2 caps po q4h prn for pain. (Do not exceed 3,000mg of acetaminophen in 24 hours) Prov:LINDA ROSEN EMR ANALYST 02/26/23 Dextromethorphan-Guaifenesin (Robitussin-Dm) 10 Ml Sr, 10 ML PO BID for 10 Days, #200 SYP Prov:FUAD VALENCIA MD 12/02/22 Doxycycline Hyclate (Vibramycin) 100 Mg Cap, 1 CAP PO BID for 10 Days, #20 CAP Prov:FUAD VALENCIA MD 12/02/22 Reported Medications Hydrocodone-Acetaminophen ([place] 5/325MG) 1 Tab Tb, 1 TAB PO Q6HP PRN for PAIN SCALE 1 THRU 6, #90 TAB 05/27/19 Diphenoxylate W/ Atropine (Lomotil) 2.5 Mg Tab, 1 TAB PO TID PRN for FOR DIARRHEA, #30 TAB 05/27/19 Gemfibrozil (Gemfibrozil) 600 Mg Tab, 1 TAB PO DAILY, #60 TAB 5 Refills 05/27/19 Atenolol (TENORMIN TABLET) 50 Mg Tb, 1 TAB PO DAILY, #30 TAB 5 Refills 05/27/19 Allopurinol (ZYLOPRIM TABLET) 300 Mg Tb, 1 TAB PO DAILY, #30 TAB 5 Refills 05/27/19 Aspirin (Aspirin) 325 Mg Tab, 1 TAB PO DAILY, #30 TAB 5 Refills 05/27/19 Acyclovir (Acyclovir) 400 Mg Tab, 400 MG PO BID, TAB 05/27/19 Vital Signs Vital Signs Date Time Temp Pulse Resp B/P (MAP) Pulse Ox O2 Delivery O2 Flow Rate FiO2 05/18/25 12:01 97.9 80 18 175/92 (119) 95 97.9 Physical Exam General Appearance: Alert, Oriented X3, Cooperative, No acute distress HEENT: Atraumatic, PERRLA, EOMI, Mucous membrane moist/pink Respiratory: Clear to auscultation, Normal air movement Cardiovascular: Regular rate, Normal S1, Normal S2, No murmurs, no chest wall tenderness Abdominal: Normal bowel sounds, Soft, No tenderness, No hepatospenomegaly, No masses Extremities: No clubbing, No cyanosis, No edema, Normal pulses, No tenderness/swelling Skin: No rashes, No breakdown, No significant lesion Neuro: Normal gait, Normal speech, Strength at 5/5 X4 ext, Normal tone, Sensation intact, Cranial nerves 3-12 NL, Reflexes 2+ Psych/Mental Status: Mental status NL, Mood NL Assessment Uncontrolled blood pressure ? Unstable angina COPD Dyslipidemia Chronic back pain * EKGs shows diffuse T-wave inversion in nonspecific ST-T changes on anterior chest leads * Chest x-ray shows no intrathoracic abnormalities Plan/recommendation (Case discussed with Dr. Mckeon) * Aspirin * Atorvastatin * Pain management * Continue home meds * Check echocardiogram, lipid profile and TSH * We will follow up with the patient, keep the patient on telemetry and check serial troponin * Rest of plan, per primary team Thank you for giving us the opportunity to take care of your patient. Please call back if you have any question/concern. Plan discussed with: Patient, Other (RN) ANA PAULA DOTSON May 18, 2025 13:15
[2025-05-18 13:23] LABS: Potassium 3.8 mmol/L (3.5-5.1); Sodium 141 mmol/L (136-145)
[2025-05-18 13:24] LABS: Anion Gap 9 (5-15); Calcium 9.9 mg/dL (8.7-10.4); Carbon Dioxide 24 mmol/L (20-31)
[2025-05-18 13:29] LABS: BUN/Creatinine Ratio 12.4 (10.0-20.0); Blood Urea Nitrogen 17 mg/dL (9-23); Chloride 108 mmol/L (98-107); Glucose 107 mg/dL (74-106)
[2025-05-18] MEDS: METOPROLOL TARTRATE 25 MG TAB PO ONE (13:30)
[2025-05-18] MEDS: ATORVASTATIN 20 MG TAB PO ONE (13:30)
[2025-05-18 14:08] LABS: Triglycerides 59.0 mg/dL (< 150)
[2025-05-18 14:09] LABS: Magnesium 1.9 mg/dL (1.6-2.6)
[2025-05-18 14:10] LABS: Cholesterol 138.0 mg/dL (< 200); HDL Cholesterol 73.0 mg/dL (40-59)
[2025-05-18 14:18] LABS: INR 1.03 (0.9-1.15); Prothrombin Time 10.9 sec (9.3-11.8)
[2025-05-18 16:19] LABS: Urine Protein, UAD Negative (Negative)
[2025-05-18 16:27] LABS: Opiate Scree,Urine Neg (NEGATIVE)
[2025-05-18] MEDS ORDERED: ONDANSETRON HCL 4 MG/2 ML VIAL IV PRN (16:30)
[2025-05-18] MEDS ORDERED: DOCUSATE SOD 100 MG CAP PO PRN (16:30)
[2025-05-18 16:34] LABS: Amphetamine Screen, Urine Neg (NEGATIVE); Barbiturate Scree,Urine Neg (NEGATIVE); Benzodiazephine Screen, Urine Neg (NEGATIVE); Cannabinoid Screen, Urine Neg (NEGATIVE); Cocaine Screen, Urine Neg (NEGATIVE); Phencyclidine Screen, Urine Neg (NEGATIVE)
--- NOTE | 2025-05-18 17:22 | DVHHP2 ---
History of Present Illness Reason for Visit: Hypertensive urgency History of Present Illness The patient is a 84-year-old female with past medical history of COPD, gout, hypertension, and hyperlipidemia who presented to [facility] ED for evaluation of elevated blood pressure. Patient reports she has been experiencing lightheadedness, left chest tightness, associated shortness of breaths, getting worse that prompted this visit. Patient was seen and evaluated in the ED, laboratory data shows WBC 6.8, platelets 235, sodium 141, potassium 3.8, BUN 17, creatinine 1.37, glucose 107, hemoglobin A1c 5.4, calcium 9.9, BNP 411.03, troponin 59, blood pressure 202/101, heart rate 59, temperature 97.9 F, O2 saturation 95% on oxygen. Chest x-ray revealing postoperative changes of the heart without evidence of acute intrathoracic process. Patient was given hydralazine 10 mg IV, please see medication orders section in the computer. On my assessment, patient denied chest pain, no headache, no dizziness, no diaphoresis, no shortness a breaths at this moment, no nausea, no vomiting, no fever, no chills. Patient was admitted for further evaluation and medical management. Past Medical History COPD, Gout, High Lipids, HTN Past Surgical History Hysterectomy, Heart valve replacement, Bilateral knee replacement Family History Reviewed, noncontributory to the management of this case. Past Social History The patient lives at home, denies smoking, alcohol or illicit drugs abuse. Review of Systems Constitutional: Yes: Weakness; No: Fever, Chills, Sweats, Malaise, Other Eyes: No: Pain, Vision change, Conjunctivae inflammation, Eyelid inflammation, Other, Redness ENT: No: Ear pain, Ear discharge, Nose pain, Nose discharge, Nose congestion, Mouth pain, Mouth swelling, Throat pain, Throat swelling, Other Respiratory: Shortness of breath, Other (SOB at rest); No: Cough, Dry, SOB with excertion, Wheezing, Hemoptysis, Pleuritic Pain, Sputum, Wheezing Cardiovascular: Other (Hypertension); No: Chest Pain, Palpitations, Orthopnea, Paroxysmal Noc. Dyspnea, Edema, Lt Headedness Gastrointestinal: No: Nausea, Vomiting, Abdominal Pain, Diarrhea, Constipation, Melena, Hematochezia, Other Genitourinary: No Dysuria, No Frequency, No Incontinence, No Hematuria, No Retention, No Other Musculoskeletal: No: other, neck pain, shoulder pain, arm pain, back pain, hand pain, leg pain, foot pain Skin: No: Rash, Lesions, Jaundice, Bruising, Other Neurological: No: Weakness, Numbness, Incoordination, Change in speech, Confusion, Seizures, Other Allergies: Coded Allergies: Morphine (Verified Allergy, Severe, 09/20/13) Sulfa Drugs (Verified Allergy, Unknown, 05/26/19) Medications Current Medications Medications Dose Ordered Sig/Alexa Route Start Time Stop Time Status Last Admin Dose Admin Aspirin 81 mg DAILY PO 05/19/25 10:00 Atorvastatin Calcium 80 mg HS PO 05/19/25 22:00 Metoprolol Tartrate 25 mg BID PO 05/18/25 22:00 Amlodipine Besylate 5 mg DAILY PO 05/19/25 10:00 Losartan Potassium 100 mg DAILY PO 05/19/25 10:00 Hydralazine HCl 10 mg Q6HP PRN IV 05/18/25 16:30 Allopurinol 300 mg DAILY PO 05/19/25 10:00 Sodium Chloride 10 ml Q8HR IV 05/18/25 22:00 Acetaminophen/ Hydrocodone Bitart 1 tab Q4HP PRN PO 05/18/25 16:30 Ondansetron HCl 4 mg Q4HP PRN IV 05/18/25 16:30 Docusate Sodium 100 mg BIDPRN PRN PO 05/18/25 16:30 Acetaminophen 650 mg Q6HP PRN PO 05/18/25 16:30 Exam Vital Signs Vital Signs Date Time Temp Pulse Resp B/P (MAP) Pulse Ox O2 Delivery O2 Flow Rate FiO2 05/18/25 14:32 59 05/18/25 13:30 202/101 05/18/25 12:01 97.9 18 95 97.9 General Appearance: Alert, Oriented X3, Cooperative, No acute distress HEENT: Atraumatic, PERRLA, EOMI, Mucous membr. moist/pink Respiratory: Normal air movement Cardiovascular: Regular rate, Normal S1, Normal S2, No murmurs Abdominal: Normal bowel sounds, Soft, No tenderness, No hepatospenomegaly, No masses Extremities: No clubbing, No cyanosis, No edema, Normal pulses, No tenderness/swelling Skin: No rashes, No significant lesion Neuro: Normal speech, Normal tone, Sensation intact, Cranial nerves 3-12 NL, Reflexes 2+, Other (Generalized weakness) Psych/Mental Status: Mental status NL, Mood NL Labs/Xrays Labs Test 05/18/25 16:07 05/18/25 15:42 05/18/25 12:48 Range/Units Urine Color Light-yellow Yellow Urine Clarity Clear Clear Urine pH 6.0 5.0-9.0 Urine Specific [place] 1.014 1.001-1.035 Urine Protein Negative Negative Urine Ketones Negative Negative Urine Blood Negative Negative /uL Urine Nitrite Negative Negative Urine Bilirubin Negative Negative Urine Urobilinogen Normal Negative mg/dL Urine Leukocyte Esterase Negative Negative /uL Urine RBC <1 0 - 4 /hpf Urine Microscopic WBC 2 0-5 /HPF Urine Squamous Epithelial Cells Few <5 /hpf Urine Bacteria None seen None Seen /hpf Urine Glucose Normal Normal mg/dL Urine Opiates Screen Neg NEGATIVE Urine Fentanyl Screen Neg NEGATIVE Urine Barbiturates Screen Neg NEGATIVE Urine Phencyclidine Screen Neg NEGATIVE Urine Amphetamines Screen Neg NEGATIVE Urine Benzodiazepines Screen Neg NEGATIVE Urine Cocaine Screen Neg NEGATIVE Urine Cannabinoids Screen Neg NEGATIVE Troponin I High Sensitivity 56 *H </=34 ng/L White Blood Count 6.8 4.4-10.8 10^3/uL Red Blood Count 4.09 4.0-5.20 10^6/uL Hemoglobin 11.5 L 12.2-16.2 g/dL Hematocrit 36.0 36.0-46.0 % Mean Corpuscular Volume 88.1 80.0-100.0 fL Mean Corpuscular Hemoglobin 28.1 28.0-32.0 pg Mean Corpuscular Hemoglobin Concent 31.9 L 32.0-36.0 g/dL Red Cell Distribution Width 14.4 H 11.8-14.3 % Platelet Count 235 140-450 10^3/uL Mean Platelet Volume 8.6 6.9-10.8 fL Neutrophils (%) (Auto) 56.2 37.0-80.0 % Lymphocytes (%) (Auto) 30.3 10.0-50.0 % Monocytes (%) (Auto) 10.9 0.0-12.0 % Eosinophils (%) (Auto) 1.4 0.0-7.0 % Basophils (%) (Auto) 1.2 0.0-2.0 % Neutrophils # (Auto) 3.8 1.6-8.6 10 ^3/uL Lymphocytes # (Auto) 2.1 0.4-5.4 10 ^3/uL Monocytes # (Auto) 0.7 0-1.3 10 ^3/uL Eosinophils # (Auto) 0.1 0-0.8 10 ^3/uL Basophils # (Auto) 0.1 0-0.2 10 ^3/uL Nucleated Red Blood Cells 0.0 % Prothrombin Time 10.9 9.3-11.8 sec Prothrombin Time INR 1.03 0.9-1.15 Sodium Level 141 136-145 mmol/L Potassium Level 3.8 3.5-5.1 mmol/L Chloride Level 108 H 98-107 mmol/L Carbon Dioxide Level 24 20-31 mmol/L Anion Gap 9 5-15 Blood Urea Nitrogen 17 9-23 mg/dL Creatinine 1.37 H 0.550-1.02 mg/dL Glomerular Filtration Rate Calc 39 >90 mL/min BUN/Creatinine Ratio 12.4 10.0-20.0 Serum Glucose 107 H 74-106 mg/dL Hemoglobin A1c 5.4 <5.7 % A1C Calcium Level 9.9 8.7-10.4 mg/dL Magnesium Level 1.9 1.6-2.6 mg/dL B-Type Natriuretic Peptide 411.03 0-100 pg/mL Triglycerides Level 59 < 150 mg/dL Cholesterol Level 138 < 200 mg/dL LDL Cholesterol 47 < 100 mg/dL HDL Cholesterol 73 H 40-59 mg/dL PATIENT: CHRISTOPHER JOHN ACCT: [id number] UNIT: [id number] : 1940 LOC: ER ROOM / BED: / AGE / SEX: 84 / F ADM STATUS: REG ER SERVICE 1159 ORDERING PHYSICIAN: LUCINA BLISS MD PROCEDURE(s): CXR2 - CHEST TWO VIEWS ROUTINE REASON: cp ORDER NUMBER(s): [id number], ACCESSION NUMBER(s): [id number] EXAM: XY CHEST TWO VIEWS ROUTINE HISTORY: cp, hypertension COMPARISON: CHEST TWO VIEWS ROUTINE on DOS: 12/02/22, CXR2 on DOS: 12/02/22, CHEST TWO VIEWS ROUTINE on DOS: 05/26/19 TECHNIQUE: PA and lateral views of the chest were performed. FINDINGS: No pneumothorax, pulmonary edema, pleural effusions, or consolidative infiltrates. The heart is not enlarged. There are postoperative changes of median sternotomy. 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 There may be a chronic midthoracic mild compression fracture versus artifactual appearance due to degenerative disc disease. IMPRESSION: Postoperative changes of the heart without evidence of acute intrathoracic process. Assessment/Plan Assessment/Plan Acute coronary syndrome Elevated troponin Hypertensive emergency Generalized weakness Plan 1. Admit to telemetry unit 2. Breathing treatment 3. Pain control management 4. Management of fluids and electrolytes 5. Consultation for Cardiology 6. Diagnostic tests chest x-ray 7. DVT prophylaxis-on aspirin 8. Repeat labs CBC, CMP in a.m. 9. Continue with current medical management 10. Treatment plan discussed with patient and RN. Patient verbalized understanding. Plan discussed with: Patient, Other (RN) My Orders Orders - LUKE DODSON DNP Procedure Category Date Status Time Hydralazine Injection PHA 05/18/25 In Process (Apresoline Inject 16:30 Allopurinol Tablet PHA 05/19/25 In Process (Zyloprim Tablet) 10:00 Allergies WANDA 05/18/25 In Process 16:28 Code Status CODE 05/18/25 Transmitted 16:28 Sodium Chloride Lock PHA 05/18/25 In Process (Saline Lock Ns) 22:00 Oxygen Per Hour RT 05/18/25 Transmitted 16:28 Hydrocodone-Acet PHA 05/18/25 In Process 5/325mg Tab ([place] 16:30 Ondansetron Hcl PHA 05/18/25 In Process (Zofran) 16:30 Docusate Sodium PHA 05/18/25 In Process Capsule (Colace 16:30 Fall Risk Precautions WANDA 05/18/[address] 16:28 Complete Blood Count LAB 05/19/25 Verified 04:00 Comprehensive LAB 05/19/25 Verified Metabolic Panel 04:00 Cardiac DIET 05/18/25 Transmitted Diet-2gna,Lofat,Lochol Dinner Condition: Serious WANDA 05/18/25 In Process 16:28 Acetaminophen Tablet PHA 05/18/25 In Process (Tylenol Tablet) 16:30 Maintain Bed Rest WANDA 05/18/25 In Process 16:28 Sequential WANDA 05/18/25 In Process Compression Device Admit ADMIT 05/18/25 Verified 17:20 Nitroglycerin PHA 05/18/25 Verified Sublingual (Ntrostat 17:30 Stat Ekg For Chest WANDA 05/18/25 Verified Pain 17:20 Notify Md Of Changes [facility] 05/18/25 Verified From Base 17:20 Disassembler Product For [facility] 05/18/25 Verified 24 Hours 17:20 Emergency Dysrhythmia [facility] 05/18/25 Verified Protocol 17:20 Rhythm Strips Once [facility] 05/18/25 Verified Every Shift 17:20 Oxygen By Nasal 05/18/25 Verified Cannula 17:20 Problem List: (1) Acute coronary syndrome (2) Elevated troponin (3) Hypertensive emergency (4) Generalized weakness Date of Service: May 18, 2025 Billing Provider: LUKE DODSON DNP Common Visit Codes: [id number] INP/OBS CARE (HIGH) LUEK DODSON DNP May 18, 2025 17:22
[2025-05-18] MEDS ORDERED: NITROGLYCERIN 0.4 MG SL TAB SL PRN (17:30)
[2025-05-18] MEDS: hydrALAZINE HCL 20 MG/ML VL IV PRN (20:07)
[2025-05-18] MEDS: SODIUM CHLOR 0.9% PF (SALINE LOCK) 10ML VIAL/SYR IV SCH (21:42)
[2025-05-18] MEDS: hydrALAZINE HCL 20 MG/ML VL IV ONE (21:42)
[2025-05-18] MEDS: METOPROLOL TARTRATE 25 MG TAB PO SCH (22:00)
[2025-05-19] MEDS: HYDROcodone-ACET 5/325MG TAB PO PRN (01:02)
[2025-05-19 04:42] LABS: Hematocrit 39.3 % (36.0-46.0); Hemoglobin 12.7 g/dL (12.2-16.2); Mean Corpuscular Hemoglobin 27.9 pg (28.0-32.0); Mean Corpuscular Volume 85.9 fL (80.0-100.0); Nucleated Red Blood Cells % 0.1 %
[2025-05-19 04:43] LABS: Alkaline Phosphatase 78 U/L (46-116); Anion Gap 12 (5-15); BUN/Creatinine Ratio 20.0 (10.0-20.0); Blood Urea Nitrogen 19 mg/dL (9-23); Calcium 9.9 mg/dL (8.7-10.4); Glucose 89 mg/dL (74-106); Potassium 3.9 mmol/L (3.5-5.1); Sodium 140 mmol/L (136-145); Total Protein 7.8 g/dL (5.7-8.2)
[2025-05-19 04:44] LABS: Bilirubin, Total 0.4 mg/dL (0.2-1.0)
[2025-05-19 05:01] LABS: Alanine Aminotransferase < 9 U/L (7-40); Albumin 4.9 g/dL (3.2-4.8); Carbon Dioxide 19 mmol/L (20-31); Chloride 109 mmol/L (98-107)
[2025-05-19] MEDS: ACETAMINOPHEN 325 MG TAB PO PRN (05:06)
[2025-05-19 05:38] VITALS: PULSE 93; RESP 17; O2SAT 98
--- NOTE | 2025-05-19 07:54 | ECG ---
[facility] Test Date: 2025-05-18 Test Time: 14:32:44 Pat Name: CHRISTOPHER JOHN Department: ER Room: 0251T Gender: F Lieutenant Fire Fighter: RACHEL : 1940 Requested By: LUCINA BLISS Order Number: [id number] Reading MD: Lenny Kaye Measurements Intervals [place] Rate: 59 P: 269 [place]: 160 QRS: -48 QRSD: 120 T: -80 QT: 441 QTc: 437 Interpretive Statements Ectopic atrial rhythm Nonspecific IVCD with LAD Left ventricular hypertrophy Anterior Q waves, possibly due to LVH Abnormal T, consider ischemia, diffuse leads Electronically Signed On 05-21-2025 18:58:06 PDT by Lenny Kaye Please click the below link to view image of tracing.
[2025-05-19 08:00] VITALS: PULSE 86; PULSE 93; RESP 16; RESP 17; O2SAT 96; O2SAT 98
--- NOTE | 2025-05-19 09:03 | DVHPN2 ---
Progress Note Date Seen: May 19, 2025 Resident Creating Document: ANA PAULA DOTSON JOSE JUAN Has the PT tested + for MRSA If YES, has PT been informed?: No Medical Necessity Reason Pt with a Central, PICC or Fol: No Subjective Review of Systems Patient seen and examined at the bedside. Patient is complaining of headache. Patient reports: No new complaints Objective vital signs Vital Sign Date Time Temp Pulse Resp B/P (MAP) Pulse Ox O2 Delivery O2 Flow Rate FiO2 05/19/25 08:27 197/89 05/19/25 08:00 86 16 96 Room Air* 0 21 05/19/25 07:30 98.1 98.1 medications Current Medications Medications Dose Ordered Sig/Alexa Route Start Time Stop Time Status Last Admin Dose Admin Aspirin 81 mg DAILY PO 05/19/25 10:00 Atorvastatin Calcium 80 mg HS PO 05/19/25 22:00 Metoprolol Tartrate 25 mg BID PO 05/18/25 22:00 Losartan Potassium 100 mg DAILY PO 05/19/25 10:00 Hydralazine HCl 10 mg Q6HP PRN IV 05/18/25 16:30 05/19/25 05:15 10 MG Allopurinol 300 mg DAILY PO 05/19/25 10:00 Sodium Chloride 10 ml Q8HR IV 05/18/25 22:00 05/19/25 06:10 10 ML Acetaminophen/ Hydrocodone Bitart 1 tab Q4HP PRN PO 05/18/25 16:30 05/19/25 01:02 1 TAB Ondansetron HCl 4 mg Q4HP PRN IV 05/18/25 16:30 Docusate Sodium 100 mg BIDPRN PRN PO 05/18/25 16:30 Acetaminophen 650 mg Q6HP PRN PO 05/18/25 16:30 05/19/25 05:06 650 MG Nitroglycerin 0.4 mg Q5MINP PRN SL 05/18/25 17:30 Examination General Appearance: Alert, Oriented X3, Cooperative, No acute distress HEENT: Atraumatic, PERRLA, EOMI, Mucous membrane moist/pink Respiratory: Clear to auscultation, Normal air movement Cardiovascular: Regular rate, Normal S1, Normal S2, No murmurs, no chest wall tenderness Abdominal: Normal bowel sounds, Soft, No tenderness, No hepatospenomegaly, No masses Extremities: No clubbing, No cyanosis, No edema, Normal pulses, No tenderness/swelling Skin: No rashes, No breakdown, No significant lesion Neuro: Normal gait, Normal speech, Strength at 5/5 X4 ext, Normal tone, Sensation intact, Cranial nerves 3-12 NL, Reflexes 2+ Psych/Mental Status: Mental status NL, Mood NL laboratory and microbiology Laboratory Tests 05/19/25 03:46 Test 05/19/25 03:46 Range/Units Serum Glucose 89 74-106 mg/dL Labs and/or images reviewed: Labs reviewed by me, Image(s) reviewed by me Problem List/Assessment/Plan Problem List/Assessment/Plan Hypertensive emergency NSTEMI, likely type 2 due to above COPD Dyslipidemia Chronic back pain DARVIN, likely VMN * EKGs shows diffuse T-wave inversion and nonspecific ST-T changes on anterior chest leads * Chest x-ray shows no intrathoracic abnormalities * Serial trop I mildly raised, stable Plan/recommendation (Case discussed with Dr. Mckeon) * Aspirin and Atorvastatin * Nifedipine 90mg daily, [id number] daily, Chlorthalidone 50mg daily, and Coreg 25mg BID * In context of normal echocardiogram, the patient does not need further cardiology workup at the moment * Rest of plan, per primary team Thank you for giving us the opportunity to take care of your patient. Please call back if you have any question/concern. Plan discussed with: Patient, Other My Orders My Orders Orders - ANA PAULA DOTSON RESDISTEPH Procedure Category Date Status Time Aspirin Tablet PHA 05/19/25 In Process 10:00 Metoprolol Tartrate PHA 05/18/25 In Process Tablet (Lopressor Ta 22:00 Atorvastatin (Lipitor) PHA 05/19/25 In Process 22:00 Losartan Tablet PHA 05/19/25 In Process (Cozaar Tablet) 10:00 ANA PAULA DOTSON RESDIENT May 19, 2025 09:03
[2025-05-19] MEDS: hydroCHLOROthiazide 25 MG TAB PO ONE (09:31)
--- NOTE | 2025-05-19 10:02 | ECG ---
[facility] Test Date: 2025-05-18 Test Time: 11:49:43 Pat Name: CHRISTOPHER JOHN Department: ER Room: 0251T Gender: F Kennel Keeper: DEBORAH : 1940 Requested By: LUCINA BLISS Order Number: [id number] Reading MD: Lenny Kaye Measurements Intervals [place] Rate: 63 P: 43 [place]: 207 QRS: -58 QRSD: 115 T: -89 QT: 432 QTc: 443 Interpretive Statements Sinus rhythm Incomplete right bundle branch block LVH with IVCD, LAD and secondary repol abnrm Electronically Signed On 05-21-2025 18:57:34 PDT by Lenny Kaye Please click the below link to view image of tracing.
[2025-05-19] MEDS: ALLOPURINOL 100 MG TAB PO SCH (10:12)
[2025-05-19] MEDS: LOSARTAN POTASSIUM 50 MG TAB PO SCH (10:13)
[2025-05-19] MEDS ORDERED: hydrALAZINE HCL 20 MG/ML VL IV PRN (11:45)
[2025-05-19] MEDS: ACETAMINOPHEN 325 MG TAB PO SCH (11:45)
[2025-05-19] MEDS: CARVEDILOL 12.5 MG TAB PO ONE (12:06)
[2025-05-19] MEDS: FUROSEMIDE 20 MG/2 ML VIAL IV ONE (12:06)
--- NOTE | 2025-05-19 16:18 | DVHPN2 ---
Assessment/Plan Assessment/Plan progress note 84 F with resistant HTN, COPD, HLD, admitted for hypertension. patient reported compliant with meds but also taking prn clonidine. 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
[2025-05-19 18:15] VITALS: BP 127/82; PULSE 82; RESP 16; O2SAT 97
[2025-05-19] MEDS ORDERED: IRBE300T48 PO (18:36)
[2025-05-19] MEDS ORDERED: IRBE300T43 PO (18:36)
[2025-05-19] MEDS ORDERED: CLON0.1T PO (18:36)
[2025-05-19 20:30] VITALS: PULSE 76; PULSE 80; RESP 18; O2SAT 97
[2025-05-19 21:00] VITALS: BP 139/70; PULSE 80; RESP 18; TEMP 97.5; O2SAT 97
[2025-05-19] MEDS: ATORVASTATIN 20 MG TAB PO SCH (21:01)
[2025-05-19] MEDS: CARVEDILOL 12.5 MG TAB PO SCH (21:01)
--- NOTE | 2025-05-20 00:16 | DVHPN2 ---
Progress Note - Dictate Date Seen: May 19, 2025 Has the PT tested + for MRSA If YES, has PT been informed?: No Medical Necessity Reason Pt with a Central, PICC or Fol: No Subjective Patient was seen and evaluated in follow up. Patient is complaining of headache. WBC minimally elevated at 10.9. CO2 19. UDS is negative. Telemetry reviewed. vital signs Vital Sign Date Time Temp Pulse Resp B/P (MAP) Pulse Ox O2 Delivery O2 Flow Rate FiO2 05/19/25 22:01 78 112/65 05/19/25 21:00 97.5 18 97 97.5 05/19/25 20:30 Room Air* 0 21 medications Current Medications Medications Dose Ordered Sig/Alexa Route Start Time Stop Time Status Last Admin Dose Admin Aspirin 81 mg DAILY PO 05/19/25 10:00 05/19/25 10:14 81 MG Atorvastatin Calcium 80 mg HS PO 05/19/25 22:00 05/19/25 21:01 80 MG Losartan Potassium 100 mg DAILY PO 05/19/25 10:00 05/19/25 10:13 100 MG Allopurinol 300 mg DAILY PO 05/19/25 10:00 05/19/25 10:12 300 MG Sodium Chloride 10 ml Q8HR IV 05/18/25 22:00 05/19/25 21:00 10 ML Acetaminophen/ Hydrocodone Bitart 1 tab Q4HP PRN PO 05/18/25 16:30 05/19/25 15:27 1 TAB Ondansetron HCl 4 mg Q4HP PRN IV 05/18/25 16:30 Acetaminophen 650 mg Q6HR PO 05/19/25 11:45 05/19/25 18:44 650 MG Carvedilol 12.5 mg Q12HR PO 05/19/25 22:00 05/19/25 21:01 12.5 MG Nifedipine 90 mg DAILY PO 05/20/25 10:00 Chlorthalidone 25 mg DAILY@BREAKFAST PO 05/20/25 08:00 objective GENERAL: Alert and oriented x 3. No acute distress. EYES: PERRL, EOMI. Anicteric. HENT: Moist mucous membranes. LUNGS: Clear to auscultation bilaterally. CARDIOVASCULAR: Regular rate and rhythm. ABDOMEN: Soft, non-tender and non-distended. EXTREMITIES: No edema. NEUROLOGIC: No focal neurological deficits. SKIN: Warm, dry. laboratory and microbiology Laboratory Tests 05/19/25 03:46 Test 05/19/25 03:46 Range/Units Serum Glucose 89 74-106 mg/dL Problem List Hypertensive emergency. NSTEMI, likely type 2 due to above. COPD. Dyslipidemia. Chronic back pain. DARVIN, likely VMN. Assessment/Plan Continued all current supportive medical care. Patient has been seen by Natty Peralta, resident on my behalf. We have discussed the plan with the patient. Aspirin and Atorvastatin. Nifedipine 90mg daily, [id number] daily, Chlorthalidone 50mg daily, and Coreg 25mg BID. In context of normal echocardiogram, the patient does not need further cardiology workup at the moment. Rest of plan, per primary team. Additional plan as per the hospital course. Plan discussed with: Patient JEANMARIE BOJORQUEZ MD May 20, 2025 00:16
[2025-05-20 01:00] VITALS: BP 114/55; PULSE 91; RESP 18; TEMP 97.6; O2SAT 96
[2025-05-20 05:00] VITALS: BP 128/68; PULSE 88; RESP 19; TEMP 97.5; O2SAT 97
[2025-05-20 06:42] LABS: Hematocrit 38.0 % (36.0-46.0); Hemoglobin 12.3 g/dL (12.2-16.2); Mean Corpuscular Hemoglobin 28.0 pg (28.0-32.0); Mean Corpuscular Volume 86.8 fL (80.0-100.0); Nucleated Red Blood Cells % 0.2 %
[2025-05-20 06:53] LABS: Chloride 104 mmol/L (98-107); Potassium 4.0 mmol/L (3.5-5.1); Sodium 141 mmol/L (136-145)
[2025-05-20 06:54] LABS: Anion Gap 10 (5-15); Calcium 10.1 mg/dL (8.7-10.4); Carbon Dioxide 27 mmol/L (20-31)
[2025-05-20 06:59] LABS: Glucose 98 mg/dL (74-106)
[2025-05-20 07:00] LABS: BUN/Creatinine Ratio 14.9 (10.0-20.0); Blood Urea Nitrogen 17 mg/dL (9-23)
[2025-05-20] MEDS: CHLORTHALIDONE 25 MG TAB PO SCH (08:45)
[2025-05-20 09:30] VITALS: BP 101/68; PULSE 73; RESP 16; TEMP 95.5; O2SAT 96
[2025-05-20] MEDS ORDERED: hydroCHLOROthiazide 25 MG TAB PO SCH (10:00)
[2025-05-20] MEDS ORDERED: METOPROLOL SUCCINATE XL 50 MG TAB PO SCH (10:00)
[2025-05-20] MEDS ORDERED: ASPI-325 PO (11:16)
[2025-05-20] MEDS ORDERED: CARV-216 PO (11:16)
[2025-05-20] MEDS ORDERED: CHLO25TA2 PO (11:16)
[2025-05-20] MEDS ORDERED: LOSA-534 PO (11:16)
[2025-05-20] MEDS ORDERED: ATOR-47 PO (11:16)
[2025-05-20] MEDS ORDERED: NIFE1TAB30 PO (11:16)
--- NOTE | 2025-05-20 11:17 | DVHDS2 ---
Discharge Summary Date of Admission May 18, 2025 at 17:20 Date of Discharge: May 20, 2025 Labs/Diagnostic Data: Laboratory Results Test 05/20/25 06:10 05/19/25 03:46 05/18/25 16:07 05/18/25 15:42 White Blood Count 8.9 10^3/uL (4.4-10.8) Red Blood Count 4.38 10^6/uL (4.0-5.20) Hemoglobin 12.3 g/dL (12.2-16.2) Hematocrit 38.0 % (36.0-46.0) Mean Corpuscular Volume 86.8 fL (80.0-100.0) Mean Corpuscular Hemoglobin 28.0 pg (28.0-32.0) Mean Corpuscular Hemoglobin Concent 32.3 g/dL (32.0-36.0) Red Cell Distribution Width 14.5 % (11.8-14.3) Platelet Count 263 10^3/uL (140-450) Mean Platelet Volume 9.2 fL (6.9-10.8) Neutrophils (%) (Auto) 63.6 % (37.0-80.0) Lymphocytes (%) (Auto) 24.7 % (10.0-50.0) Monocytes (%) (Auto) 9.8 % (0.0-12.0) Eosinophils (%) (Auto) 1.0 % (0.0-7.0) Basophils (%) (Auto) 0.9 % (0.0-2.0) Neutrophils # (Auto) 5.6 10 ^3/uL (1.6-8.6) Lymphocytes # (Auto) 2.2 10 ^3/uL (0.4-5.4) Monocytes # (Auto) 0.9 10 ^3/uL (0-1.3) Eosinophils # (Auto) 0.1 10 ^3/uL (0-0.8) Basophils # (Auto) 0.1 10 ^3/uL (0-0.2) Nucleated Red Blood Cells 0.2 % Sodium Level 141 mmol/L (136-145) Potassium Level 4.0 mmol/L (3.5-5.1) Chloride Level 104 mmol/L (98-107) Carbon Dioxide Level 27 mmol/L (20-31) Anion Gap 10 (5-15) Blood Urea Nitrogen 17 mg/dL (9-23) Creatinine 1.14 mg/dL (0.550-1.02) Glomerular Filtration Rate Calc 48 mL/min (>90) BUN/Creatinine Ratio 14.9 (10.0-20.0) Serum Glucose 98 mg/dL (74-106) Calcium Level 10.1 mg/dL (8.7-10.4) Total Bilirubin 0.4 mg/dL (0.2-1.0) Aspartate Amino Transferase (AST) 22 U/L (13-40) Alanine Aminotransferase (ALT) < 9 U/L (7-40) Alkaline Phosphatase 78 U/L (46-116) Total Protein 7.8 g/dL (5.7-8.2) Albumin 4.9 g/dL (3.2-4.8) Urine Color Light-yellow (Yellow) Urine Clarity Clear (Clear) Urine pH 6.0 (5.0-9.0) Urine Specific [place] 1.014 (1.001-1.035) Urine Protein Negative (Negative) Urine Ketones Negative (Negative) Urine Blood Negative /uL (Negative) Urine Nitrite Negative (Negative) Urine Bilirubin Negative (Negative) Urine Urobilinogen Normal mg/dL (Negative) Urine Leukocyte Esterase Negative /uL (Negative) Urine RBC <1 /hpf (0 - 4) Urine Microscopic WBC 2 /HPF (0-5) Urine Squamous Epithelial Cells Few /hpf (<5) Urine Bacteria None seen /hpf (None Seen) Urine Glucose Normal mg/dL (Normal) Urine Opiates Screen Neg (NEGATIVE) Urine Fentanyl Screen Neg (NEGATIVE) Urine Barbiturates Screen Neg (NEGATIVE) Urine Phencyclidine Screen Neg (NEGATIVE) Urine Amphetamines Screen Neg (NEGATIVE) Urine Benzodiazepines Screen Neg (NEGATIVE) Urine Cocaine Screen Neg (NEGATIVE) Urine Cannabinoids Screen Neg (NEGATIVE) Troponin I High Sensitivity 56 ng/L (</=34) Test 05/18/25 12:48 Prothrombin Time 10.9 sec (9.3-11.8) Prothrombin Time INR 1.03 (0.9-1.15) Hemoglobin A1c 5.4 % A1C (<5.7) Magnesium Level 1.9 mg/dL (1.6-2.6) B-Type Natriuretic Peptide 411.03 pg/mL (0-100) Triglycerides Level 59 mg/dL (< 150) Cholesterol Level 138 mg/dL (< 200) LDL Cholesterol 47 mg/dL (< 100) HDL Cholesterol 73 mg/dL (40-59) Other Laboratory Tests 05/20/25 06:10 Brief Hx & Hospital Course: 84 F with resistant HTN, COPD, HLD, admitted for hypertension. patient reported compliant with meds but also taking prn clonidine. plan titrate up meds. asymptomatic. need resumption of BP meds. stable to dc home, dc clinic in 7 days. 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 HLD chronic hypoxic RF Discharge Disposition: Home Discharge Instruct/Medications Diet: Consistent carbohydrate, Cardiac 2g Na,low cholest Activity: No Restrictions, As Tolerated Follow Up/Referral: pcp dc clinic Medications: nifedipine coreg losartan chlorthalidone Scheduled Acyclovir (Acyclovir), 400 MG PO BID, (Reported) Allopurinol (Zyloprim Tablet), 1 TAB PO DAILY, (Reported) Aspirin (Aspirin), 1 TAB PO DAILY, (Reported) Aspirin (Aspirin Low Dose), 81 MG PO DAILY Atenolol (Tenormin Tablet), 1 TAB PO DAILY, (Reported) Atorvastatin Calcium (Atorvastatin Calcium), 1 TAB PO DAILY Carvedilol (Coreg), 12.5 MG PO Q12HR Chlorthalidone (Chlorthalidone), 25 MG PO DAILY@BREAKFAST Clonidine Hydrochloride (Clonidine Hcl), 0.1 MG PO BID, (Reported) Dextromethorphan-Guaifenesin (Robitussin-Dm), 10 ML PO BID Doxycycline Hyclate (Vibramycin), 1 CAP PO BID Gemfibrozil (Gemfibrozil), 1 TAB PO DAILY, (Reported) Irbesartan (Irbesartan), 1 TAB PO DAILY, (Reported) Losartan Potassium (Losartan Potassium), 100 MG PO DAILY Meloxicam (Meloxicam), 7.5 MG PO BID Nifedipine (Nifedipine Er), 1 TAB PO DAILY Scheduled PRN Acetaminophen (Tylenol), 325 MG PO Q4HPRN PRN Diphenoxylate W/ Atropine (Lomotil), 1 TAB PO TID PRN for FOR DIARRHEA, (Reported) Hydrocodone-Acetaminophen ([place] 5/325MG), 1 TAB PO Q6HP PRN for PAIN SCALE 1 THRU 6, (Reported) Miscellaneous Medications Irbesartan-Hydrochlorothiazide (Irbesartan/Hydrochlorothi 300-12.5 mg), 1 TAB PO, (Reported) Discharge Statement: "Patient was advised to return to the ER or call 911 if any headaches, dizziness, shortness of breath, chest pain, abdominal pain, bleeding, fevers, or worsening of medical condition. Patient was counseled about treatment plan, medications, possible side effects, patientverbalized understanding. All questions were answered to the best of my ability. This discharge took greater then 30 minutes in planning, reviewing documentation, counseling the patient, and discussing with other team members." ASSESSMENT ASSESSMENT Assessment hypertensive urgency Date of Service: May 20, 2025 Billing Provider: TYRONE ORDOÑEZ MD Common Visit Codes: [id number]/[id number] DISCH DAY >30min TYRONE ORDOÑEZ MD May 20, 2025 11:17
[2025-05-20 13:12] VITALS: BP 116/58; PULSE 66; RESP 18; TEMP 98.2; O2SAT 95
--- NOTE | 2025-05-20 13:35 | ECG ---
[facility] Test Date: 2025-05-19 Test Time: 10:23:18 Pat Name: CHRISTOPHER JOHN [facility] Gender: F Network Security Engineer: otis : 1940 Requested By: LUCINA BLISS Order Number: [id number] Reading MD: Lenny Kaye Measurements Intervals [place] Rate: 96 P: 0 ME: 274 QRS: -37 QRSD: 116 T: -9 QT: 367 QTc: 464 Interpretive Statements Sinus rhythm Prolonged ME interval LVH with IVCD, LAD and secondary repol abnrm Electronically Signed On 05-21-2025 19:00:47 PDT by Lenny Kaye Please click the below link to view image of tracing.
--- NOTE | 2025-05-20 23:22 | DVHPN2 ---
Progress Note - Dictate Date Seen: May 20, 2025 Has the PT tested + for MRSA If YES, has PT been informed?: No Medical Necessity Reason Pt with a Central, PICC or Fol: No Subjective Patient was seen and evaluated in follow-up. Patient has no new complaints at this time. Patient denies any cardiac symptoms. Patient is cardiac stable for discharge. Telemetry reviewed. vital signs Vital Sign Date Time Temp Pulse Resp B/P (MAP) Pulse Ox O2 Delivery O2 Flow Rate FiO2 05/20/25 13:12 98.2 66 18 116/58 (77) 95 98.2 05/20/25 08:00 Room Air* 0 21 Total Intake and Output 05/19/25 05/19/25 05/20/25 15:00 23:00 07:00 Intake Total 480 ml Balance 480 ml objective GENERAL: Alert and oriented x 3. No acute distress. EYES: PERRL, EOMI. Anicteric. HENT: Moist mucous membranes. LUNGS: Clear to auscultation bilaterally. CARDIOVASCULAR: Regular rate and rhythm. ABDOMEN: Soft, non-tender and non-distended. EXTREMITIES: No edema. NEUROLOGIC: No focal neurological deficits. SKIN: Warm, dry. laboratory and microbiology Laboratory Tests 05/20/25 06:10 Test 05/20/25 06:10 Range/Units Serum Glucose 98 74-106 mg/dL Problem List Hypertensive emergency. NSTEMI, likely type 2 due to above. COPD. Dyslipidemia. Chronic back pain. DARVIN, likely VMN. Assessment/Plan Continued all current supportive medical care. Aspirin, Metoprolol. Losartan, Nifedipine, Coreg. Additional plan as per the hospital course. Plan discussed with: Patient JEANMARIE BOJORQUEZ MD May 20, 2025 14:24
== END 2025-05-20 13:45 | disposition home or self-care (01) | DRG 280 ==
LOC: ER 11:23 → OVERFLOW 17:20 → TELE-EAST 05-19 17:45
PROVIDERS: ADMIT Student in an Organized Health Care Education/Training Program; ATTEND Student in an Organized Health Care Education/Training Program
DX: I1A.0 Resistant hypertension (principal); N17.0 Acute kidney failure with tubular necrosis; I21.A1 Myocardial infarction type 2; J96.11 Chronic respiratory failure with hypoxia; I50.32 Chronic diastolic (congestive) heart failure; J44.9 Chronic obstructive pulmonary disease, unspecified; E78.5 Hyperlipidemia, unspecified; Z96.653 Presence of artificial knee joint, bilateral; G89.29 Other chronic pain; Z95.2 Presence of prosthetic heart valve; I11.0 Hypertensive heart disease with heart failure; Z84.89 Family history of other specified conditions; Z90.710 Acquired absence of both cervix and uterus; Z88.5 Allergy status to narcotic agent; Z88.2 Allergy status to sulfonamides; Z83.3 Family history of diabetes mellitus; Z82.49 Family history of ischemic heart disease and other diseases of the circulatory system
CPT/HCPCS: 36415; 71046; 80048; 80053; 80061; 80307; 81001; 83036; 83735; 83880; 84484; 85025; 85610; 93005; 96374; 99291; G0378

== ENCOUNTER 2025-06-22 08:56 | Outpatient (CLI) | payer OTHER, MEDICAID ==
[~2025-06-22] VITALS: Ht 177.8 cm; Wt 80.7 kg
[~2025-06-22 08:56] MED LIST changes: -ACYC1TAB2 PO; +ASPI-325 PO; -ASPI325T6 PO; -ATE50T PO; +ATOR-47 PO; +CARV-216 PO; +CHLO25TA2 PO; -DEXT1SYP9 PO; -DOXY100C PO; -HYDR-4833 PO; +LOSA-534 PO; -MELO7.5T7 PO; +NIFE1TAB30 PO
[2025-06-22] MEDS: REGADENOSON 0.4 MG/5 ML SYRG IV ONE ×2 (11:14→11:22)
--- NOTE | 2025-06-22 13:11 | DVHSR ---
APPROVED REPORT Exam: Nuclear Stress Test Indication: Chest Pain BMI: 0 Medical History Medical History: COPD, EF 60%, PVC's, HTN, Mitral valve replacement Stress Test Details Stress Test: Pharmacologic stress testing performed using 0.4 mg of regadenoson per 5 mL given IV ov er 10 seconds. HR Resting HR: 82 bpmMax Heart Rate (APMHR): 138.859700 bpm Max HR Achieved: 93 bpmTarget HR (85% APMHR): 117.681672 bpm % of APMHR: 67.39 Recovery HR: 80 bpm BP Resting BP: 163/95 mmHg Recovery BP: 138/70 mmHg ECG Resting ECG: Sinus Rhythm Clinical Reason for Termination: Completed protocol Stress ECG Conclusion lvef 68% no severe ischemia noted NM EXAM: Myocardial Perfusion REST/STRESS Imaging Protocol: Rest Tc-99m/Stress Tc-99m 1 day Resting Data Rest SPECT myocardial perfusion imaging was performed in supine position 60 minutes following the int ravenous injection of 9.9 mCi of Tc-99m Sestamibi. Time of rest injection: 09:29 Date: 06/22/2025 Time of rest imagin:29 Date: 06/22/2025 Administration Route: IV Administration Site: Left Arm Pharmacologic Stress Pharmacologic stress test was performed by injecting Regadenoson 0.4 mg IV push followed by the intra venous injection of 30.9 mCi of Tc-99m Sestamibi. Time of stress injection: 11:10 Date: 06/22/2025 Time of stress imagin:10 Date: 06/22/2025 Administration Route: IV Administration Site: Left Arm Gated Stress SPECT was performed 60 minutes after stress injection. The images were gated to evaluate regional wall motion and calculate left ventricular ejection fracti on. Stress only was performed in the Supine position. Nuclear Conclusion Nuclear Findings: negative for ischemia lvef 68% no severe ischemia noted
== END 2025-06-22 17:00 | disposition home or self-care (01) ==
LOC: XYW 08:56
PROVIDERS: ATTEND Internal Medicine
DX: R07.9 Chest pain, unspecified (principal); I10 Essential (primary) hypertension; J44.9 Chronic obstructive pulmonary disease, unspecified; Z95.2 Presence of prosthetic heart valve
CPT/HCPCS: 78452; 93017; A9500; J2785

== ENCOUNTER 2025-07-22 12:38 | Inpatient (IN) | payer OTHER, MEDICAID ==
[~2025-07-22] VITALS: Ht 172.7 cm; Wt 89.0 kg
[2025-07-22 13:51] LABS: Albumin 4.0 g/dL (3.2-4.8); Alkaline Phosphatase 64 U/L (46-116); Anion Gap 9 (5-15); BUN/Creatinine Ratio 18.1 (10.0-20.0); Blood Urea Nitrogen 21 mg/dL (9-23); Calcium 9.1 mg/dL (8.7-10.4); Carbon Dioxide 31 mmol/L (20-31); Magnesium 2.0 mg/dL (1.6-2.6); Total Protein 7.0 g/dL (5.7-8.2)
[2025-07-22 13:52] LABS: Bilirubin, Total 0.6 mg/dL (0.2-1.0)
[2025-07-22 13:55] LABS: Alanine Aminotransferase < 9 U/L (7-40); Chloride 86 mmol/L (98-107); Glucose 144 mg/dL (74-106); Potassium 3.1 mmol/L (3.5-5.1); Sodium 126 mmol/L (136-145)
[2025-07-22 14:00] LABS: Hematocrit 34.9 % (36.0-46.0); Hemoglobin 11.6 g/dL (12.2-16.2); Mean Corpuscular Hemoglobin 27.8 pg (28.0-32.0); Mean Corpuscular Volume 83.8 fL (80.0-100.0); Nucleated Red Blood Cells % 0.0 %
[2025-07-22 14:25] LABS: Lipase 31 U/L (12-53)
--- NOTE | 2025-07-22 14:31 | ED.PDOC ---
GI ASSESSMENT HPI Comments 84y F who presents to the ED for chief complaint of abdominal pain. Pt states she has been having abdominal pain for the past 4x days. Pt states the pain started after she has been taking antibiotic ciprofloxacin. Pt states she has been having nausea and vomiting after taking the antibiotic. Pt states she did not her medications today but states she continues to have nausea and vomiting. Pt otherwise states she contacted her PCP and states she was prescribed medication with minimal relief with came to the ED today for further evaluation. Pt otherwise has noted temp of 97.6 F with otherwise stable vitals. Pt denies any other symptoms at this time. Chief Complaint: Abdominal Pain Time Seen by MD: 14:54 Primary Care Provider: STEPHON Garcia Notes: Medications, Allergies Allergies: Coded Allergies: Morphine (Verified Allergy, Severe, 06/22/25) Peanut-containing Drug Products (Verified Allergy, Unknown, 06/22/25) Sulfa Drugs (Verified Allergy, Unknown, 06/22/25) Home Meds Active Scripts Nifedipine (Nifedipine Er) 60 Mg Tab, 1 TAB PO DAILY, #30 TAB 0 Refills Prov:TYRONE ORDOÑEZ MD 05/20/25 Losartan Potassium (Losartan Potassium) 50 Mg Tab, 100 MG PO DAILY for 30 Days, #60 TAB Prov:TYRONE ORDOÑEZ MD 05/20/25 Chlorthalidone (Chlorthalidone) 25 Mg Tab, 25 MG PO DAILY@BREAKFAST for 30 Days, #30 TAB Prov:TYRONE ORDOÑEZ MD 05/20/25 Carvedilol (COREG) 12.5 Mg Tab, 12.5 MG PO Q12HR for 30 Days, #60 TAB Prov:TYRONE ORDOÑEZ MD 05/20/25 Aspirin (Aspirin Low Dose) 81 Mg Tab, 81 MG PO DAILY for 90 Days, #90 TAB 1 Refill Prov:TYRONE ORDOÑEZ MD 05/20/25 Atorvastatin Calcium (ATORVASTATIN CALCIUM) 80 Mg Tab, 1 TAB PO DAILY, #90 TAB 1 Refill Prov:TYRONE ORDOÑEZ MD 05/20/25 Acetaminophen (Tylenol) 325 Mg Cap, 325 MG PO Q4HPRN PRN, #30 CAP 0 Refills Take 1-2 caps po q4h prn for pain. (Do not exceed 3,000mg of acetaminophen in 24 hours) Prov:LINDA ROSEN PHOTOENGRAVING APPRENTICE 02/26/23 Reported Medications Diphenoxylate W/ Atropine (Lomotil) 2.5 Mg Tab, 1 TAB PO TID PRN for FOR DIARRHEA, #30 TAB 05/27/19 Gemfibrozil (Gemfibrozil) 600 Mg Tab, 1 TAB PO DAILY, #60 TAB 5 Refills 05/27/19 Allopurinol (ZYLOPRIM TABLET) 300 Mg Tb, 1 TAB PO DAILY, #30 TAB 5 Refills 05/27/19 Information Source: Patient Mode of Arrival: Wheelchair Past Medical History PAST MEDICAL HISTORY: COPD, Gout, High Lipids, HTN Surgical History: Hysterectomy CUSTOM SHOEMAKER History: No Pertinent CUSTOM SHOEMAKER History Family History Family History: Reviewed,noncontributory to illness Social History Smoker: Non-Smoker Alcohol: Occasionally Drugs: Denies Drug Use Lives In: Home All Other Systems: Reviewed and Negative (see HPI) Physical Exam General Appearance: Mild Distress HEENT: Normal ENT Inspection, PERRL/EOMI Neck: Full Range of Motion, Non-Tender, Normal, Normal Inspection Respiratory: Chest Non-Tender, Lungs Clear, No Accessory Muscle Use, No Respiratory Distress, Normal Breath Sounds Cardiovascular: No Edema, No JVD, No Murmur, No Gallop, Normal Peripheral Pulses, Regular Rate/Rhythm Breast Exam: Deferred Gastrointestinal: Epigastric, No Organomegaly, No Pulsatile Mass, Normal Bowel Sounds, Tenderness Genitalia: Deferred Pelvic: Deferred Rectal: Deferred Extremities: No calf tenderness, Normal capillary refill, Normal inspection, Normal range of motion, Non-tender, No pedal edema Neurologic: Alert, informatica developer II-XII nml as Tested, No Motor Deficits, Normal Affect, Normal Mood, No Sensory Deficits Cerebellar Function: Normal Reflexes: Normal Skin: Dry, Normal Color, Warm Peripheral Pulses: 1+ carotid (R), 1+ carotid (L) Lymphatic: No Adenopathy Was a procedure done? Was a procedure done?: No GI differential Dx Differential Diagnosis: Gastritis/PUD, Gastroenteritis, UTI, Dehydration, Electrolyte Imbalance X-Ray, Labs, Meds, VS Vital Signs Date Time Temp Pulse Resp B/P (MAP) Pulse Ox O2 Delivery O2 Flow Rate FiO2 07/22/25 12:39 97.5 89 16 139/69 99 97.5 Lab Test 07/22/25 13:27 Range/Units White Blood Count 20.2 H 4.4-10.8 10^3/uL Red Blood Count 4.16 4.0-5.20 10^6/uL Hemoglobin 11.6 L 12.2-16.2 g/dL Hematocrit 34.9 L 36.0-46.0 % Mean Corpuscular Volume 83.8 80.0-100.0 fL Mean Corpuscular Hemoglobin 27.8 L 28.0-32.0 pg Mean Corpuscular Hemoglobin Concent 33.2 32.0-36.0 g/dL Red Cell Distribution Width 14.4 H 11.8-14.3 % Platelet Count 329 140-450 10^3/uL Mean Platelet Volume 9.4 6.9-10.8 fL Neutrophils (%) (Auto) 85.8 H 37.0-80.0 % Lymphocytes (%) (Auto) 5.5 L 10.0-50.0 % Monocytes (%) (Auto) 8.1 0.0-12.0 % Eosinophils (%) (Auto) 0.3 0.0-7.0 % Basophils (%) (Auto) 0.3 0.0-2.0 % Neutrophils # (Auto) 17.3 H 1.6-8.6 10 ^3/uL Lymphocytes # (Auto) 1.1 0.4-5.4 10 ^3/uL Monocytes # (Auto) 1.6 H 0-1.3 10 ^3/uL Eosinophils # (Auto) 0.1 0-0.8 10 ^3/uL Basophils # (Auto) 0.1 0-0.2 10 ^3/uL Nucleated Red Blood Cells 0.0 % Sodium Level 126 L 136-145 mmol/L Potassium Level 3.1 L 3.5-5.1 mmol/L Chloride Level 86 L 98-107 mmol/L Carbon Dioxide Level 31 20-31 mmol/L Anion Gap 9 5-15 Blood Urea Nitrogen 21 9-23 mg/dL Creatinine 1.16 H 0.550-1.02 mg/dL Glomerular Filtration Rate Calc 47 >90 mL/min BUN/Creatinine Ratio 18.1 10.0-20.0 Serum Glucose 144 H 74-106 mg/dL Calcium Level 9.1 8.7-10.4 mg/dL Magnesium Level 2.0 1.6-2.6 mg/dL Total Bilirubin 0.6 0.2-1.0 mg/dL Aspartate Amino Transferase (AST) 21 13-40 U/L Alanine Aminotransferase (ALT) < 9 7-40 U/L Alkaline Phosphatase 64 46-116 U/L Total Protein 7.0 5.7-8.2 g/dL Albumin 4.0 3.2-4.8 g/dL Lipase 31 12-53 U/L Current Medications Medications (Trade) Dose Ordered Sig/Alexa Route Start Time Stop Time Status Last Admin Ondansetron HCl (Zofran) 4 mg ONCE ONCE IV 07/22/25 13:30 07/22/25 13:31 DC 07/22/25 14:46 Sodium Chloride 1,000 ml @ 1,000 mls/hr Q1H ONCE IVB 07/22/25 13:30 07/22/25 14:29 DC 07/22/25 14:46 X-Ray, Labs, Meds, VS Comment Course in the emergency department eventful patient came in complaining of abdominal pain and nausea vomiting and diarrhea for the past four days she is 84 years old blood pressure 139/69 CT abdomen and pelvis shows CAD of the abdomen Crohn's disease ascites and DJD of the lumbar spine CBC with 85% neutrophils H&H 11.6 and 34.9 Potassium 3.1 GFR of 47 Magnesium 2.0 Lipase 31 Patient will be admitted for further care Time of 1ST Reevaluation: 14:45 Reevaluation 1ST: Unchanged Time of 2ND Reevaluation: 17:29 Reevaluation 2ND: Unchanged Patient Education/Counseling: Diagnosis, Treatment, Prognosis Family Education/Counseling: Diagnosis, Treatment, Prognosis, No Family Present SEPSIS Sepsis Screen Date sepsis recognized/suspect: Jul 22, 2025 Time Sepsis recognized/suspect: 1242 Recent Procedure: No On Antibiotic Therapy: No Respiratory Rate >20: No Heart Rate >90: No Temp<36 C (96.8 F) or >38.3 C: No SBP <90 or MAP <65 mmHG: No New Acute Mental Status Change: No Is the patient on CPAP, BIPAP,: No Physician Orders Urinalysis (07/22/25 13:17) Ct Ab Pel With Iv Con Only (07/22/25 13:17) Heplock Iv (07/22/25 13:17) Blood Pressure (07/22/25 13:17) Potassium Effervesent Tab (Klor-Con/Ef) (07/22/25 17:30) Vital Signs Date Time Temp Pulse Resp B/P (MAP) Pulse Ox O2 Delivery O2 Flow Rate FiO2 07/22/25 12:39 97.5 89 16 139/69 99 97.5 Laboratory Tests Test 07/22/25 13:27 White Blood Count 20.2 10^3/uL (4.4-10.8) H Medications Medications Dose Ordered Sig/Alexa Route Start Time Stop Time Status Last Admin Dose Admin Ondansetron HCl 4 mg ONCE ONCE IV 07/22/25 13:30 07/22/25 13:31 DC 07/22/25 14:46 Sodium Chloride 1,000 ml @ 1,000 mls/hr Q1H ONCE IVB 07/22/25 13:30 07/22/25 14:29 DC 07/22/25 14:46 Departure 1 Departure Time of Disposition: 17:31 Impression: Primary Impression: Acute abdominal pain Additional Impressions: Atherosclerotic coronary vascular disease Crohn's disease (regional enteritis) Ascites Qualified Codes: R18.8 - Other ascites Degenerative joint disease (DJD) of lumbar spine Qualified Codes: M47.816 - Spondylosis without myelopathy or radiculopathy, lumbar region Status post heart valve repair Disposition: ADMITTED INPATIENT Admit to: Tele Condition: Serious Critical Care Note Critical Care Time?: No Stability Stability form required: Yes Heart Score Heart Score: Heart Score Response (Comments) Value History N/A 0 EKG N/A 0 Age N/A 0 Risk Factors N/A 0 Troponin N/A 0 Total 0 I personally scribed for FUAD VALENCIA MD ([email or web address]) on 07/22/25 at 14:31. Electronically submitted by Lew Paris ([email or web address]). I personally scribed for FUAD VALENCIA MD ([email or web address]) on 07/22/25 at 14:34. Electronically submitted by Lew Paris ([email or web address]). I personally scribed for FUAD VALENCIA MD ([email or web address]) on 07/22/25 at 14:55. Electronically submitted by Lew Paris ([email or web address]). UFAD VALENCIA MD Jul 22, 2025 14:31
[2025-07-22] MEDS: SODIUM CHLORIDE 0.9% 1,000 ML IVB ONE (14:46)
[2025-07-22] MEDS: ONDANSETRON HCL 4 MG/2 ML VIAL IV ONE (14:46)
[2025-07-22] MEDS: IOHEXOL 300 MG/ML 100ML BOTTLE IJ ONE (16:04)
--- NOTE | 2025-07-22 16:39 | DVH ---
EXAM: CT CT AB PEL WITH IV CON ONLY HISTORY: Abdominal pain with a profuse nausea and vomiting for four d COMPARISON: None TECHNIQUE: Helical CT images of the abdomen and pelvis were performed without IV contrast. Sagittal a nd coronal reformatted images were obtained. This CT exam was performed using one or more of the foll owing dose reduction techniques: Automated exposure control, adjustment of the mA and/or kv according to patient size, or the use of iterative reconstruction techniques. Radiation Dose: Abdomen/Pelvis: CTDIvol 15.1 mGy, DLP 727.69 mGy*cm. FINDINGS: CT abdomen: There are emphysematous changes and scarring in the lung bases. The heart is not enlarged . There are coronary artery calcifications. There are epicardial defibrillator wires. There is small hiatal hernia. There is low volume free fluid in the upper abdomen. There is a mildly complex cyst o f the left renal superior to mid pole, with a punctate calcification present (image 84, series 602). The noncontrast liver, spleen, gallbladder, pancreas, right kidney, and bilateral adrenal glands are unremarkable. No abdominal aortic aneurysm. There are extensive atherosclerotic calcifications of the abdominal aorta and major branches. Probable greater than 50% stenosis of the origins of the SMA, c eliac artery, and bilateral renal arteries. There is estimated 50% stenosis of the right common iliac artery origin. CT pelvis: There are multiple dilated loops of small bowel. There is moderate volume free fluid in th e pelvis. No free air. There is wall thickening of the terminal ileum (images 42-57, series 2). Ther e is relative decompression of the colon. The appendix and uterus are surgically absent. The urinary bladder is unremarkable. There is severe lumbar degenerative disc disease and facet arthropathy. The re is slight retrolisthesis L4 on L5. There is bilateral L5 spondylolysis without anterolisthesis L5 on S1. There is multilevel significant neural foraminal stenosis bilaterally. 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 IMPRESSION: 1. Emphysema and scarring in the lung bases. 2. Coronary artery disease and extensive atherosclerotic vascular disease of the abdomen and pelvis. Recommend cardiology and/or vascular surgery consultation if not already obtained. There is likely greater than 50% stenosis of the origins of the renal arteries, SMA, and celiac trunk ; estimated 50% stenosis of the right common iliac artery origin. 3. Diffuse wall thickening of the distal ileum is consistent with terminal ileitis. Does the patient have a history of Crohn's disease This causes low to intermediate grade small bowel obstruction. 4. Low volume upper abdominal ascites and moderate volume pelvic ascites 5. Postoperative changes of epicardial leads, appendectomy, and hysterectomy. 6. Severe lumbar degenerative disc disease and facet arthropathy. There is bilateral L5 spondylolysis without anterolisthesis L5 on S1. There is multilevel significant neural foraminal stenosis flavia pavon.
[2025-07-22] MEDS: POTASSIUM EFFERVESENT TAB 25 MEQ PO ONE (19:23)
[2025-07-22 21:24] LABS: Hematocrit 36.6 % (36.0-46.0); Hemoglobin 12.1 g/dL (12.2-16.2); Mean Corpuscular Hemoglobin 27.9 pg (28.0-32.0); Mean Corpuscular Volume 84.5 fL (80.0-100.0); Nucleated Red Blood Cells % 0.0 %
[2025-07-22 21:58] LABS: Alanine Aminotransferase 11 U/L (7-40); Albumin 4.5 g/dL (3.2-4.8); Alkaline Phosphatase 71 U/L (46-116); Anion Gap 11 (5-15); BUN/Creatinine Ratio 16.2 (10.0-20.0); Blood Urea Nitrogen 18 mg/dL (9-23); Calcium 9.3 mg/dL (8.7-10.4); Carbon Dioxide 27 mmol/L (20-31); Magnesium 2.3 mg/dL (1.6-2.6); Total Protein 7.6 g/dL (5.7-8.2)
[2025-07-22 21:59] LABS: Bilirubin, Total 0.4 mg/dL (0.2-1.0)
[2025-07-22 22:15] LABS: Chloride 87 mmol/L (98-107); Glucose 135 mg/dL (74-106); Potassium 2.9 mmol/L (3.5-5.1); Sodium 125 mmol/L (136-145)
--- NOTE | 2025-07-22 22:29 | DVHHPRES ---
History of Present Illness Resident Creating Document: SIERRA TORRES RESIDENT History of Present Illness Melony Hewitt D4 year old female with past medical history of hypertension, gout, COPD, dyslipidemia, chronic back pain, lower bowel obstruction came to the ED with chief complaints of abdominal pain mostly in the right quadrant, suprapubic region since 4 days which is associated with nausea, vomiting 5 times a day which was yellow, did not have any blood and was aggravated by drinking water. Patient also complained of dizziness, chills, night sweats, weight loss which was greater than 35 lb he has in the last year, patient denies any diarrhea, blood in the stool, dysuria, fever, attending chest pain, palpitations. Patient states that her nausea and vomiting increased after the abdominal pain and after taking ciprofloxacin. Patient on arrival had leukocytosis, hyponatremia, hypokalemia. CT abdomen showed Diffuse wall thickening of the distal ileum is consistent with terminal ileitis. Patient is admitted for further management. Past surgical history: Valve repair, Hysterectomy, appendicectomy Family history: Reviewed, noncontributory Personal history: Denies smoking, drinking, drug use Lives with: Family PCP: Dr. Rice Headlight Assembler: Dr. Kaye Review of Systems Constitutional: Yes: Fever, Chills, Sweats, Weakness; No: Malaise, Other Eyes: No: Pain, Vision change, Conjunctivae inflammation, Eyelid inflammation, Other, Redness ENT: No: Ear pain, Ear discharge, Nose pain, Nose discharge, Nose congestion, Mouth pain, Mouth swelling, Throat pain, Throat swelling, Other Respiratory: No: Cough, Dry, Shortness of breath, SOB with excertion, Wheezing, Hemoptysis, Pleuritic Pain, Sputum, Wheezing, Other Cardiovascular: No: Chest Pain, Palpitations, Orthopnea, Paroxysmal Noc. Dyspnea, Edema, Lt Headedness, Other Gastrointestinal: Nausea, Vomiting, Abdominal Pain; No: Diarrhea, Constipation, Melena, Hematochezia, Other Genitourinary: No Dysuria, No Frequency, No Incontinence, No Hematuria, No Retention, No Other Musculoskeletal: No: other, neck pain, shoulder pain, arm pain, back pain, hand pain, leg pain, foot pain Skin: No: Rash, Lesions, Jaundice, Bruising, Other Neurological: No: Weakness, Numbness, Incoordination, Change in speech, Confusion, Seizures, Other Allergies: Coded Allergies: Morphine (Verified Allergy, Severe, 06/22/25) Peanut-containing Drug Products (Verified Allergy, Unknown, 06/22/25) Sulfa Drugs (Verified Allergy, Unknown, 06/22/25) Medications Current Medications Medications Dose Ordered Sig/Alexa Route Start Time Stop Time Status Last Admin Dose Admin Piperacillin Sod/ Tazobactam Sod 100 ml @ 25 mls/hr Q8HR IV 07/23/25 06:00 Exam Vital Signs Vital Signs Date Time Temp Pulse Resp B/P (MAP) Pulse Ox O2 Delivery O2 Flow Rate FiO2 07/22/25 20:03 98.0 91 20 120/75 (90) 91 98.0 Exam General: Patient alert and oriented in person, place and time. Patient following commands. HEENT: Normocephalic, atraumatic, moist mucous membranes Respiratory/pulmonary: Clear lungs bilaterally, vesicular murmurs present in almost all lung guo, no associated crackles or wheezes. Cardiovascular: Normal heart sounds S1 and S2 with no associated murmurs Abdomen: Diffuse abdominal tenderness mostly in the right lower quadrant Extremities: There is no peripheral edema present at the lower extremities. Peripheral Pulses: 3+ Radial (R). 3+ Radial (L). 3+ Dorsalis pedis (R). 3+ Dorsalis pedis(L) Skin: No rashes or pruritus, there is no sacral edema present at this time. Neurological: Intact cranial nerves with no focal neurologic deficits Labs/Xrays Labs Test 07/22/25 20:46 07/22/25 13:27 Range/Units White Blood Count 19.0 H 4.4-10.8 10^3/uL Red Blood Count 4.33 4.0-5.20 10^6/uL Hemoglobin 12.1 L 12.2-16.2 g/dL Hematocrit 36.6 36.0-46.0 % Mean Corpuscular Volume 84.5 80.0-100.0 fL Mean Corpuscular Hemoglobin 27.9 L 28.0-32.0 pg Mean Corpuscular Hemoglobin Concent 33.1 32.0-36.0 g/dL Red Cell Distribution Width 14.2 11.8-14.3 % Platelet Count 303 140-450 10^3/uL Mean Platelet Volume 9.3 6.9-10.8 fL Neutrophils (%) (Auto) 81.6 H 37.0-80.0 % Lymphocytes (%) (Auto) 8.6 L 10.0-50.0 % Monocytes (%) (Auto) 8.5 0.0-12.0 % Eosinophils (%) (Auto) 0.8 0.0-7.0 % Basophils (%) (Auto) 0.5 0.0-2.0 % Neutrophils # (Auto) 15.5 H 1.6-8.6 10 ^3/uL Lymphocytes # (Auto) 1.6 0.4-5.4 10 ^3/uL Monocytes # (Auto) 1.6 H 0-1.3 10 ^3/uL Eosinophils # (Auto) 0.1 0-0.8 10 ^3/uL Basophils # (Auto) 0.1 0-0.2 10 ^3/uL Nucleated Red Blood Cells 0.0 % Sodium Level 125 L 136-145 mmol/L Potassium Level 2.9 L 3.5-5.1 mmol/L Chloride Level 87 L 98-107 mmol/L Carbon Dioxide Level 27 20-31 mmol/L Anion Gap 11 5-15 Blood Urea Nitrogen 18 9-23 mg/dL Creatinine 1.11 H 0.550-1.02 mg/dL Glomerular Filtration Rate Calc 50 >90 mL/min BUN/Creatinine Ratio 16.2 10.0-20.0 Serum Glucose 135 H 74-106 mg/dL Calcium Level 9.3 8.7-10.4 mg/dL Magnesium Level 2.3 1.6-2.6 mg/dL Total Bilirubin 0.4 0.2-1.0 mg/dL Aspartate Amino Transferase (AST) 25 13-40 U/L Alanine Aminotransferase (ALT) 11 7-40 U/L Alkaline Phosphatase 71 46-116 U/L Total Protein 7.6 5.7-8.2 g/dL Albumin 4.5 3.2-4.8 g/dL Troponin I High Sensitivity 16 </=34 ng/L Lipase 31 12-53 U/L SEPSIS Sepsis Screen Date sepsis recognized/suspect: Jul 22, 2025 Time Sepsis recognized/suspect: 2 Recent Procedure: No On Antibiotic Therapy: No Respiratory Rate >20: No Heart Rate >90: No Temp<36 C (96.8 F) or >38.3 C: No SBP <90 or MAP <65 mmHG: No New Acute Mental Status Change: No Is the patient on CPAP, BIPAP,: No Physician Orders Electrocardiogram With Magnet (07/22/25 17:37) Clostridium Difficile Toxin (07/22/25 20:22) Lactic Acid W/ Reflex Order (07/22/25 20:22) Piperacillin-Tazo 4.5gm (Zosyn 4.5gm/100 (07/22/25 22:00) Admit (07/22/25 21:54) Oxygen By Nasal Cannula (07/22/25 21:54) Stat Ekg For Chest Pain (07/22/25 21:54) Notify Md Of Changes From Base (07/22/25 21:54) Treatment Plant Mechanic For 24 Hours (07/22/25 21:54) Emergency Dysrhythmia Protocol (07/22/25 21:54) Rhythm Strips Once Every Shift (07/22/25 21:54) Piperacillin-Tazob 3.375gm (Zosyn 3.375g (07/23/25 06:00) Vital Signs Date Time Temp Pulse Resp B/P (MAP) Pulse Ox O2 Delivery O2 Flow Rate FiO2 07/22/25 20:03 98.0 91 20 120/75 (90) 91 98.0 Laboratory Tests Test 07/22/25 13:27 07/22/25 20:46 White Blood Count 20.2 10^3/uL (4.4-10.8) H 19.0 10^3/uL (4.4-10.8) H Lactic Acid Level Pending Medications Medications Dose Ordered Sig/Alexa Route Start Time Stop Time Status Last Admin Dose Admin Ondansetron HCl 4 mg ONCE ONCE IV 07/22/25 13:30 07/22/25 13:31 DC 07/22/25 14:46 4 MG Potassium Bicarbonate 25 meq ONCE ONCE PO 07/22/25 17:30 07/22/25 17:31 DC 07/22/25 19:23 25 MEQ Sodium Chloride 1,000 ml @ 1,000 mls/hr Q1H ONCE IVB 07/22/25 13:30 07/22/25 14:29 DC 07/22/25 14:46 1,000 MLS/HR Assessment/Plan Assessment/Plan Assessment and plan # sepsis due to terminal ileitis # lactic acidosis -iv fluids -IV zosym -lactic acid -blood culture # terminal ileitis? Inflammation? Infection? Ischemia -CT abd pelvis -iv fluids -IV zosym -lactic acid NPO GI consult surgeon consult 50% stenosis of the origins of the renal arteries 50% stenosis of SMA, and celiac trunk 50% stenosis of the right common iliac artery origin. 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 -seen on CT -consider cardiology and surgical consultation # hypokalemia -corrected -monitor # ?DARVIN, likely VMN -IV fluids -monitor # normocytic anemia -monitor #COPD -on 2l -ipratropium and albuterol PRN #Dyslipidemia -resume home meds, currently NPO #Chronic back pain -resume home meds, currently NPO Goals of care addressed with the patient for more than 31 minutes: Please confirm Code status Case discussed with , patient and nurse Plan discussed with: Patient Date of Service: Jul 22, 2025 Billing Provider: LAVONNE FERRER MD Common Visit Codes: [id number] INP/OBS CARE (HIGH) Secondary Visit Codes: [id number] CARE PLAN 30 MINUTES SIERRA TORRES RESIDENT Jul 22, 2025 22:29 PARAS CASEY RESIDENT Jul 23, 2025 07:57
[2025-07-22 22:48] LABS: Lactic Acid w/Reflex 2.7 mmol/L (0.4-2.0)
[2025-07-22] MEDS: PIPERACILLIN-TAZO 4.5GM 100 ML IV ONE (23:48)
[2025-07-23] VITALS (10 sets, daily range): BP systolic 120–171; BP diastolic 60–92; PULSE 73–91; RESP 15–22; TEMP 97.6–99.1; O2SAT 92–100
[2025-07-23] MEDS ORDERED: ALBUTEROL SULF 2.5 MG/0.5ML(0.5%) NEB SOLN NEB PRN (00:45)
[2025-07-23] MEDS ORDERED: IPRATROPIUM BROM 0.5 MG/2.5ML INH SOL NEB PRN (00:45)
--- NOTE | 2025-07-23 02:09 | DVH ---
CHEST RADIOGRAPH Indication: sob Technique: Single frontal view of the chest was obtained COMPARISON: XY CHEST TWO VIEWS ROUTINE on DOS: 05/18/25, CHEST TWO VIEWS ROUTINE on DOS: 12/02/22, CXR2 on DOS: 12/02/22, CHEST TWO VIEWS ROUTINE on DOS: 05/26/19 FINDINGS: Lines and Tubes: None Lungs: Clear Pleura: No effusion. No pneumothorax. Cardiomediastinal contours: Unremarkable status post median sternotomy. Atherosclerotic vascular irvin cifications. Bones: Unremarkable IMPRESSION: 1. No acute disease.
[2025-07-23 02:35] LABS: Urine Protein, UAD 1+ (Negative)
[2025-07-23] MEDS: POTASSIUM CHL 20MEQ/100ML 100 ML IV SCH (03:11)
[2025-07-23] MEDS: SODIUM CHLORIDE 0.9% 1,000 ML IV SCH (03:11)
[2025-07-23 03:23] LABS: INR 0.98 (0.9-1.15); Partial Thromboplastin Time 27.1 SEC (24.5-34.5); Prothrombin Time 10.4 sec (9.3-11.8)
[2025-07-23 03:26] LABS: Lactic Acid w/Reflex 2.3 mmol/L (0.4-2.0)
--- NOTE | 2025-07-23 03:42 | DVH ---
INDICATION: incontinence, DARVIN TECHNIQUE: Multiple real-time sonographic images were obtained of the right upper quadrant. COMPARISON: None FINDINGS: The liver demonstrates normal homogeneous echotexture without focal mass lesions. The liver measures 14.7 cm. Normal hepatopetal portal flow identified. No evidence of pleural effusion. Trace ascites noted. There is no intrahepatic or extrahepatic ductal dilatation. The common duct measures 0.6 cm. Mobile gallstones identified within the gallbladder. The gallbladder wall is thickened, measuring up to 4 mm. Negative sonographic correia's sign. The right kidney measures 9.5 cm. The right kidney is normal in contour, size, and shape. The echogen icity is normal. There is no hydronephrosis. The left kidney measures 11.6 cm. The left kidney is normal in contour, size, and shape. The echogeni city is normal. There is no hydronephrosis. The pancreas is not well visualized due to overlying bowel gas. IMPRESSION: 1. Cholelithiasis with thickened gallbladder wall. In the appropriate clinical setting, these finding s may be consistent with acute cholecystitis. 2. Trace abdominal ascites.
[2025-07-23] MEDS: ONDANSETRON ODT 4 MG TAB PO PRN (05:05)
[2025-07-23] MEDS: PIPERACILLIN-TAZOB 3.375GM 100 ML IV SCH (07:04)
[2025-07-23] MEDS: KETOROLAC TROMETH 30 MG/ML 1ML VIAL IV ONE (09:26)
[2025-07-23] MEDS: ENOXAPARIN SOD 100 MG/1 ML SYRINGE SC ONE (09:27)
--- NOTE | 2025-07-23 10:06 | DVH ---
Date: 07/23/2025 08:10 AM Examination: XY KUB ABDOMEN SINGLE VIEW History: abd pain Comparison: US ABDOMEN COMPLETE SONOGRAM on DOS: 07/23/25, CT CT AB PEL WITH IV CON ONLY on DOS: , CT CT AB PEL WO CON-NO ORAL OR IV on DOS: 08/14/23 TECHNIQUE: Frontal views of the abdomen was obtained. FINDINGS: Small bowel loops measuring up to 5 cm. Small-bowel obstruction not excluded The lung bases are unremarkable. No acute osseous abnormality identified. IMPRESSION: Small bowel loops measuring up to 5 cm. Small-bowel obstruction not excluded
[2025-07-23] MEDS ORDERED: ONDANSETRON HCL 4 MG/2 ML VIAL IV PRN (10:30)
[2025-07-23] MEDS ORDERED: HYDROmorphone HCL 2 MG/ML VL/or syr IV PRN (10:45)
[2025-07-23] MEDS ORDERED: HEPARIN SODIUM (PORCINE) 5000 UNITS/ML 1ML VIAL IV ONE (10:45)
--- NOTE | 2025-07-23 10:50 | DVHPN2 ---
Subjective Seen and examined at bedside in the ED. Patient is c/o abdominal pain. Will await Surgical consult. I tried calling the patients sister Sheree, no answer. Will start Heparin Drip for possible PE, patient is short of breath. Changes from previous H/P or p: No Changes Eyes: No Pain, No Vision change, No Conjunctivae inflammation, No Eyelid inflammation, No Other, No Redness ENT: No Ear pain, No Ear discharge, No Nose pain, No Nose discharge, No Nose congestion, No Mouth pain, No Mouth swelling, No Throat pain, No Throat swelling, No Other Cardiovascular: No Chest Pain, No Palpitations, No Orthopnea, No Paroxysmal Noc. Dyspnea, No Edema, No Lt Headedness, No Other Respiratory: No Cough, No Dry, No Shortness of breath, No SOB with excertion, No Wheezing, No Hemoptysis, No Pleuritic Pain, No Sputum, No Other Gastrointestinal: Abdominal Pain; No Diarrhea, No Constipation, No Melena, No Hematochezia, No Other Genitourinary: No Dysuria, No Frequency, No Incontinence, No Hematuria, No Retention, No Other Musculoskeletal: No other, No neck pain, No shoulder pain, No arm pain, No back pain, No hand pain, No leg pain, No foot pain Skin: No Rash, No Lesions, No Jaundice, No Bruising, No Other Objective Vitals Vital Signs Date Time Temp Pulse Resp B/P (MAP) Pulse Ox O2 Delivery O2 Flow Rate FiO2 07/23/25 09:00 71 14 188/82 (117) 100 07/23/25 07:30 Nasal Cannula* 2 28 07/23/25 07:30 98.1 98.1 Intake/Output Intake and Output 07/23/25 07:00 Intake Total 125 ml Balance 125 ml Intake IV Total 125 ml Exam Gen: in bed mild distress Cvs: Tachycardic Resp: Diminished Abd: Distended, tender Satellite Instruction Facilitator: AAO x 4 Medications Current Medications Medications Dose Ordered Sig/Alexa Route Start Time Stop Time Status Last Admin Dose Admin Piperacillin Sod/ Tazobactam Sod 100 ml @ 25 mls/hr Q8HR IV 07/23/25 06:00 07/23/25 07:04 25 MLS/HR Albuterol 2.5 mg Q4HPRN PRN NEB 07/23/25 00:45 Ipratropium Lamar 0.5 mg Q4HPRN PRN NEB 07/23/25 00:45 Sodium Chloride 1,000 ml @ 75 mls/hr [id number] IV 07/23/25 00:45 07/23/25 03:11 75 MLS/HR Ondansetron HCl 4 mg Q4HPRN PRN IV 07/23/25 10:30 UNV Hydromorphone HCl 1 mg Q2HPRN PRN IV 07/23/25 10:45 UNV Hydralazine HCl 10 mg Q6HPRN PRN IV 07/23/25 10:45 Ondansetron HCl 4 mg Q6HPRN PRN IV 07/23/25 10:45 UNV Laboratory Results Laboratory Tests 07/22/25 20:46 Chemistry Test 07/22/25 13:27 07/22/25 20:46 Albumin 4.0 g/dL (3.2-4.8) 4.5 g/dL (3.2-4.8) Calcium Level 9.1 mg/dL (8.7-10.4) 9.3 mg/dL (8.7-10.4) Magnesium Level 2.0 mg/dL (1.6-2.6) 2.3 mg/dL (1.6-2.6) Total Protein 7.0 g/dL (5.7-8.2) 7.6 g/dL (5.7-8.2) Coagulation Test 07/23/25 02:42 Prothrombin Time 10.4 sec (9.3-11.8) Prothrombin Time INR 0.98 (0.9-1.15) Activated Partial Thromboplast Time 27.1 SEC (24.5-34.5) D-Dimer, Quantitative 13.97 mg/L FEU (0.0-0.49) H Lipid panel Test 07/22/25 13:27 Lipase 31 U/L (12-53) LFT Test 07/22/25 13:27 07/22/25 20:46 Alanine Aminotransferase (ALT) < 9 U/L (7-40) 11 U/L (7-40) Alkaline Phosphatase 64 U/L (46-116) 71 U/L (46-116) Aspartate Amino Transferase (AST) 21 U/L (13-40) 25 U/L (13-40) Total Bilirubin 0.6 mg/dL (0.2-1.0) 0.4 mg/dL (0.2-1.0) HgA1c, TSH Test 07/22/25 20:46 Hemoglobin A1c 5.9 % A1C (<5.7) H Thyroid Stimulating Hormone (TSH) 1.62 uIU/mL (0.55-4.78) Urinalysis Test 07/22/25 22:40 Urine Color Yellow (Yellow) Urine Clarity Clear (Clear) Urine pH 6.0 (5.0-9.0) Urine Specific Adams > 1.050 (1.001-1.035) Urine Protein 1+ (Negative) H Urine Ketones Negative (Negative) Urine Blood Negative /uL (Negative) Urine Nitrite Negative (Negative) Urine Bilirubin Negative (Negative) Urine Urobilinogen Normal mg/dL (Negative) Urine Leukocyte Esterase Negative /uL (Negative) Urine RBC None seen /hpf (0 - 4) Urine Microscopic WBC 2 /HPF (0-5) Urine Squamous Epithelial Cells Few /hpf (<5) Urine Bacteria None seen /hpf (None Seen) Urine Hyaline Casts Few /lpf (0 - 2) Urine Mucus Few (None Seen) Urine Osmolality 554 mOsm/kg Urine Sodium 11 mmol/L (40-220) L Urine Glucose Normal mg/dL (Normal) Assessment/Plan Assessment/Plan # Sepsis due to Terminal Ileitis vs Acute Cholecystitis - Abx - Surgical Cx # IBD? # Hypokalemia - Supplement # Possible PE?? - Heparin Drip Critical care time 45 mins Plan discussed with: Patient My Orders Orders - LAVONNE FERRER MD Procedure Category Date Status Time Hydromorphone PHA 07/23/25 Logged Injection (Dilaudid 10:45 Hydralazine Injection PHA 07/23/25 In Process (Apresoline Inject 10:45 Ondansetron Hcl PHA 07/23/25 Logged (Zofran) 10:45 Basic Metabolic Panel LAB 07/23/25 Logged 10:40 Magnesium LAB 07/23/25 Logged 10:40 Phosphorus LAB 07/23/25 Logged 10:40 C-Reactive Protein LAB 07/23/25 Logged 10:40 Erythrocyte LAB 07/23/25 Logged Sedimentation Rate 10:40 Complete Blood Count LAB 07/23/25 Logged 10:40 *Dr. [facility] CONS 07/23/25 Transmitted -[place] 10:40 Vitamin D, 25-Hydroxy LAB 07/23/25 Logged 10:40 Uric Acid LAB 07/23/25 Logged 10:40 Bilat Lower Dvt US 07/23/25 Logged 10:43 Platelet Monitoring [facility] 07/23/25 Transmitted 10:43 Vte Protocol Initiated [facility] 07/23/25 Transmitted 10:43 Heparin Per [facility] 07/23/25 Transmitted Standardized Proce 10:43 Discontinue All Im [facility] 07/23/25 Transmitted Injections 10:43 PTPTT LAB 07/23/25 Transmitted 10:43 Partial LAB 07/23/25 Transmitted Thromboplastin Time 10:43 Complete Blood Count LAB 07/23/25 Transmitted 10:43 Heparin Sodium PHA 07/23/25 Transmitted (Porcine) 10:45 Heparin Drip/D5w PHA 07/23/25 Transmitted 100units/Ml 10:45 Date of Service: Jul 23, 2025 Billing Provider: LAVONNE FERRER MD Common Visit Codes: [id number] CARE 30-74 MIN LAVONNE FERRER MD Jul 23, 2025 10:50
--- NOTE | 2025-07-23 11:47 | DVHCONRES ---
Date Seen: Jul 23, 2025 Resident Creating Document: JOSIE SIERRA RESIDENT Referring Physician Dr. Murillo Reason for Consultation terminal ileitis History of Present Illness Patient is an 84-year-old female with past medical history of small bowel obstruction, resistant hypertension, gout, COPD, dyslipidemia, chronic back pain, mitral valve repair, who comes in due to intractable abdominal pain. According to the patient, on 07/19/2025 she abruptly started feeling intractable abdominal pain which was followed by vomiting and then multiple episodes of diarrhea, nonbloody, she describes the pain as cramping and 10/10 in intensity. Patient notes she ate age and noodles before the onset of symptoms, denies having similar symptoms in the past. Of note, patient recently took antibiotics for 3 days starting 07/13/2025 to 07/16/2025. Patient is a poor historian and unable to remember if she has ever been diagnosed with an inflammatory bowel disease. Patient does note that her sister had some type of bowel disease details of which she is unaware of. Per patient, she had an episode of small- bowel obstruction in 1995 for which he required abdominal surgery? Per patient last bowel movement was on Sunday, last vomiting episode was this a.m.. Per patient she is able to pass gas. CT abdomen pelvis showed Emphysema and scarring in the lung bases.Coronary artery disease and extensive atherosclerotic vascular disease of the abdomen and pelvis. Recommend cardiology and/or vascular surgery consultation if not already obtained. There is likely greater than 50% stenosis of the origins of the renal arteries, SMA, and celiac trunk ; estimated 50% stenosis of the right common iliac artery origin.Diffuse wall thickening of the distal ileum is consistent with terminal ileitis. Does the patient have a history of Crohn's disease This causes low to intermediate grade small bowel obstruction. Low volume upper abdominal ascites and moderate volume pelvic ascites. Postoperative changes of epicardial leads, appendectomy, and hysterectomy. Abdominal ultrasound showed cholelithiasis with thickened gallbladder wall. Trace abdominal ascites. KUB showed small bowel loops measuring up to 5 cm. SBO not excluded. Past Medical History Small-bowel obstruction,resistant hypertension, gout, COPD, dyslipidemia, chronic back pain, mitral valve repair Past Surgical History Appendectomy, hysterectomy, mitral valve repair, laparotomy Family History: Arthritis G8 MOTHER G8 SISTER Asthma G8 SISTER G8 SISTER Chronic obstructive pulmonary disease G8 BROTHER G8 SISTER Diabetes mellitus G8 SISTER Hypertension G8 MOTHER G8 FATHER G8 BROTHER G8 BROTHER G8 BROTHER G8 SISTER G8 SISTER G8 SISTER Thyroid disease G8 SISTER Allergies: Coded Allergies: Morphine (Verified Allergy, Severe, 06/22/25) Peanut-containing Drug Products (Verified Allergy, Unknown, 06/22/25) Sulfa Drugs (Verified Allergy, Unknown, 06/22/25) Home Meds Active Scripts Nifedipine (Nifedipine Er) 60 Mg Tab, 1 TAB PO DAILY, #30 TAB 0 Refills Prov:TYRONE ORDOÑEZ MD 05/20/25 Losartan Potassium (Losartan Potassium) 50 Mg Tab, 100 MG PO DAILY for 30 Days, #60 TAB Prov:TYRONE ORDOÑEZ MD 05/20/25 Chlorthalidone (Chlorthalidone) 25 Mg Tab, 25 MG PO DAILY@BREAKFAST for 30 Days, #30 TAB Prov:TYRONE ORDOÑEZ MD 05/20/25 Carvedilol (COREG) 12.5 Mg Tab, 12.5 MG PO Q12HR for 30 Days, #60 TAB Prov:TYRONE ORDOÑEZ MD 05/20/25 Aspirin (Aspirin Low Dose) 81 Mg Tab, 81 MG PO DAILY for 90 Days, #90 TAB 1 Refill Prov:TYRONE ORDOÑEZ MD 05/20/25 Atorvastatin Calcium (ATORVASTATIN CALCIUM) 80 Mg Tab, 1 TAB PO DAILY, #90 TAB 1 Refill Prov:TYRONE ORDOÑEZ MD 05/20/25 Acetaminophen (Tylenol) 325 Mg Cap, 325 MG PO Q4HPRN PRN, #30 CAP 0 Refills Take 1-2 caps po q4h prn for pain. (Do not exceed 3,000mg of acetaminophen in 24 hours) Prov:LINDA ROSEN [facility] 02/26/23 Reported Medications Diphenoxylate W/ Atropine (Lomotil) 2.5 Mg Tab, 1 TAB PO TID PRN for FOR DIARRHEA, #30 TAB 05/27/19 Gemfibrozil (Gemfibrozil) 600 Mg Tab, 1 TAB PO DAILY, #60 TAB 5 Refills 05/27/19 Allopurinol (ZYLOPRIM TABLET) 300 Mg Tb, 1 TAB PO DAILY, #30 TAB 5 Refills 05/27/19 Current Medications Current Medications Medications (Trade) Dose Ordered Sig/Alexa Route PRN Reason Start Time Stop Time Status Last Admin Piperacillin Sod/ Tazobactam Sod 100 ml @ 25 mls/hr Q8HR IV 07/23/25 06:00 07/23/25 07:04 Albuterol (Ventolin Medneb) 2.5 mg Q4HPRN PRN NEB SHORTNESS OF BREATH 07/23/25 00:45 Ipratropium [place] (Atrovent Medneb) 0.5 mg Q4HPRN PRN NEB SHORTNESS OF BREATH 07/23/25 00:45 Ondansetron HCl (Zofran Po) 4 mg Q4HP PRN PO NAUSEA / VOMITING 07/23/25 00:45 07/23/25 10:18 DC 07/23/25 05:05 Sodium Chloride 1,000 ml @ 75 mls/hr [id number] IV 07/23/25 00:45 07/23/25 03:11 Potassium Chloride 100 ml @ 50 mls/hr Q2H IV 07/23/25 00:45 07/23/25 06:44 DC 07/23/25 06:56 Ondansetron HCl (Zofran) 4 mg Q4HPRN PRN IV NAUSEA / VOMITING 07/23/25 10:30 UNV Hydromorphone HCl (Dilaudid Injection) 1 mg Q2HPRN PRN IV PAIN SCALE 7 THRU 10 07/23/25 10:45 UNV Hydralazine HCl (Apresoline Injection) 10 mg Q6HPRN PRN IV SBP>150 07/23/25 10:45 Ondansetron HCl (Zofran) 4 mg Q6HPRN PRN IV NAUSEA / VOMITING 07/23/25 10:45 UNV Heparin Sodium/ Dextrose 250 ml @ 15 mls/hr [id number] IV 07/23/25 19:30 Review of Systems Patient seen and examined at bedside. Patient is alert and oriented to time, place person and responding to all questions. Eyes: No Pain, No Vision change, No Conjunctivae inflammation, No Eyelid infl ammation, No Other, No Redness ENT: No Ear pain, No Ear discharge, No Nose pain, No Nose discharge, No Nose congestion, No Mouth pain, No Mouth swelling, No Throat pain, No Throat swelling, No Other Cardiovascular: No Chest Pain, No Palpitations, No Orthopnea, No Paroxysmal No Dyspnea, No Edema, No Lt Headedness, No Other Respiratory: No Cough, No Dry, No Shortness of breath, No SOB with exertion, No Wheezing, No Hemoptysis, No Pleuritic Pain, No Sputum, No Other Gastrointestinal: Nausea, No Vomiting, Abdominal Pain, No Diarrhea, No Constipation, No Melena, No Hematochezia, No Other Genitourinary: No Dysuria, No Frequency, No Incontinence, No Hematuria, No Retention, No Other Musculoskeletal: No other, No neck pain, No shoulder pain, No arm pain, No back pain, No hand pain, No leg pain, No foot pain Skin: No Rash, No Lesions, No Jaundice, No Bruising, No Other Vital Signs Vital Signs Date Time Temp Pulse Resp B/P (MAP) Pulse Ox O2 Delivery O2 Flow Rate FiO2 07/23/25 09:00 71 14 188/82 (117) 100 07/23/25 07:30 Nasal Cannula* 2 28 07/23/25 07:30 98.1 98.1 Physical Exam General Appearance: Cooperative. Well developed. Well nourished. NAD Pulmonary/Respiratory: Chest non-tender. Equal bilateral air entry Cardiovascular/Chest: Regular rate and rhythm. Abdominal Exam: Normal bowel sounds. Soft. normal abdomen, no visible veins, diffuse generalized tenderness to palpation, most pronounced in the left lower quadrant. Negative Rosenthal's sign. No hepatospenomegaly. No masses Neuro/Mental Status: A&O x4. Coherent. Thoughts/Psych: Normal thought pattern. Appropriate mood and affect. Good judgement and insight Skin Exam: Normal inspection. Normal color. Warm. Dry Labs/Diagnostic Data Labs Test 07/23/25 09:14 07/23/25 02:42 07/22/25 22:40 07/22/25 20:46 Range/Units Lactic Acid Level 1.3 0.4-2.0 mmol/L Prothrombin Time 10.4 9.3-11.8 sec Prothrombin Time INR 0.98 0.9-1.15 Activated Partial Thromboplast Time 27.1 24.5-34.5 SEC D-Dimer, Quantitative 13.97 H 0.0-0.49 mg/L FEU Serum Osmolality 282 278-298 mOsm/kg Urine Color Yellow Yellow Urine Clarity Clear Clear Urine pH 6.0 5.0-9.0 Urine Specific [place] > 1.050 H 1.001-1.035 Urine Protein 1+ H Negative Urine Ketones Negative Negative Urine Blood Negative Negative /uL Urine Nitrite Negative Negative Urine Bilirubin Negative Negative Urine Urobilinogen Normal Negative mg/dL Urine Leukocyte Esterase Negative Negative /uL Urine RBC None seen 0 - 4 /hpf Urine Microscopic WBC 2 0-5 /HPF Urine Squamous Epithelial Cells Few <5 /hpf Urine Bacteria None seen None Seen /hpf Urine Hyaline Casts Few 0 - 2 /lpf Urine Mucus Few None Seen Urine Osmolality 554 mOsm/kg Urine Sodium 11 L 40-220 mmol/L Urine Glucose Normal Normal mg/dL White Blood Count 19.0 H 4.4-10.8 10^3/uL Red Blood Count 4.33 4.0-5.20 10^6/uL Hemoglobin 12.1 L 12.2-16.2 g/dL Hematocrit 36.6 36.0-46.0 % Mean Corpuscular Volume 84.5 80.0-100.0 fL Mean Corpuscular Hemoglobin 27.9 L 28.0-32.0 pg Mean Corpuscular Hemoglobin Concent 33.1 32.0-36.0 g/dL Red Cell Distribution Width 14.2 11.8-14.3 % Platelet Count 303 140-450 10^3/uL Mean Platelet Volume 9.3 6.9-10.8 fL Neutrophils (%) (Auto) 81.6 H 37.0-80.0 % Lymphocytes (%) (Auto) 8.6 L 10.0-50.0 % Monocytes (%) (Auto) 8.5 0.0-12.0 % Eosinophils (%) (Auto) 0.8 0.0-7.0 % Basophils (%) (Auto) 0.5 0.0-2.0 % Neutrophils # (Auto) 15.5 H 1.6-8.6 10 ^3/uL Lymphocytes # (Auto) 1.6 0.4-5.4 10 ^3/uL Monocytes # (Auto) 1.6 H 0-1.3 10 ^3/uL Eosinophils # (Auto) 0.1 0-0.8 10 ^3/uL Basophils # (Auto) 0.1 0-0.2 10 ^3/uL Nucleated Red Blood Cells 0.0 % Sodium Level 125 L 136-145 mmol/L Potassium Level 2.9 L 3.5-5.1 mmol/L Chloride Level 87 L 98-107 mmol/L Carbon Dioxide Level 27 20-31 mmol/L Anion Gap 11 5-15 Blood Urea Nitrogen 18 9-23 mg/dL Creatinine 1.11 H 0.550-1.02 mg/dL Glomerular Filtration Rate Calc 50 >90 mL/min BUN/Creatinine Ratio 16.2 10.0-20.0 Serum Glucose 135 H 74-106 mg/dL Hemoglobin A1c 5.9 H <5.7 % A1C Calcium Level 9.3 8.7-10.4 mg/dL Magnesium Level 2.3 1.6-2.6 mg/dL Total Bilirubin 0.4 0.2-1.0 mg/dL Aspartate Amino Transferase (AST) 25 13-40 U/L Alanine Aminotransferase (ALT) 11 7-40 U/L Alkaline Phosphatase 71 46-116 U/L Total Protein 7.6 5.7-8.2 g/dL Albumin 4.5 3.2-4.8 g/dL Thyroid Stimulating Hormone (TSH) 1.62 0.55-4.78 uIU/mL Test 07/22/25 13:27 Range/Units Troponin I High Sensitivity 16 </=34 ng/L Lipase 31 12-53 U/L Assessment Terminal ileitis/colitis, possibly infectious versus inflammatory (yersinia?) Sepsis due to above Cholelithiasis, cholecystitis less likely Acute intractable abdominal pain due to above Small-bowel obstruction not excluded DARVIN likely hemodynamically mediated/VMN Hyponatremia Hypokalemia Elevated D-dimer; r/o PE Plan: IV metronidazole Q 8 hours Continue IV Zosyn Stool WBC, IBD panel, stool bacterial culture, stool occult blood IV hydration Ice chips only Workup for inflammatory bowel disease with GI in the outpatient clinic Thank you so much for the opportunity to consult on your patient. GI team will follow the patient. In case of any questions or concerns please feel free to reach out. Plan discussed with Dr. Antonio Plan discussed with: Patient, Other (RN) JOSIE SIERRA RESIDENT Jul 23, 2025 11:47
--- NOTE | 2025-07-23 12:05 | DVHINCON2 ---
Consultation - Surgical Date Seen: Jul 23, 2025 Referring Physician Reason for Consultation Gallstones Terminal ileitis History of Present Illness History of Present Illness Mrs. Hewitt is a 84-year-old female who presented to the ED yesterday with abdominal pain, nausea and vomiting that started on Sunday morning. States that at home the pain greatly intensified but by the time she got to the emergency department pain had improved slightly. Since the pain episodes started she has had 2-3 bowel movements total, watery, nonbloody. Denies fevers, chills, changes in urinary habits. States that she has never had this pain before, although in the past she has had bowel obstructions that led to surgery. Has had a over 35 lb weight loss in the past several months, associated with loss of appetite. Denies any personal family history of IBD/IBS. Does not remember any past episodes of alternating constipation/diarrhea/bloody bowel movements. States that she has had colonoscopies in the past, but does not remember when was her last one and apparently unremarkable. Since this pain episode started she has not been able to eat or drink much. Her abdominal pain is diffuse worse in the right lower quadrant. Past Medical/Surgical History Past Medical/Surgical History PMH: hypertension, gout, COPD, dyslipidemia, chronic back pain, bowel obstruction, mitral valve disease, CHF PSH mitral valve repair, ex lap for bowel obstruction, open hysterectomy, left knee surgery Family and Social History Family and Social History Family history remarkable for breast cancer in mother. No personal or family history of IBD/IBS. ETOH/T Ob/drugs denies Allergies and medications Allergies: Coded Allergies: Morphine (Verified Allergy, Severe, 06/22/25) Peanut-containing Drug Products (Verified Allergy, Unknown, 06/22/25) Sulfa Drugs (Verified Allergy, Unknown, 06/22/25) Home Meds Active Scripts Nifedipine (Nifedipine Er) 60 Mg Tab, 1 TAB PO DAILY, #30 TAB 0 Refills Prov:TYRONE ORDOÑEZ MD 05/20/25 Losartan Potassium (Losartan Potassium) 50 Mg Tab, 100 MG PO DAILY for 30 Days, #60 TAB Prov:TYRONE ORDOÑEZ MD 05/20/25 Chlorthalidone (Chlorthalidone) 25 Mg Tab, 25 MG PO DAILY@BREAKFAST for 30 Days, #30 TAB Prov:TYRONE ORDOÑEZ MD 05/20/25 Carvedilol (COREG) 12.5 Mg Tab, 12.5 MG PO Q12HR for 30 Days, #60 TAB Prov:TYRONE ORDOÑEZ MD 05/20/25 Aspirin (Aspirin Low Dose) 81 Mg Tab, 81 MG PO DAILY for 90 Days, #90 TAB 1 Refill Prov:TYRONE ORDOÑEZ MD 05/20/25 Atorvastatin Calcium (ATORVASTATIN CALCIUM) 80 Mg Tab, 1 TAB PO DAILY, #90 TAB 1 Refill Prov:TYRONE ORDOÑEZ MD 05/20/25 Acetaminophen (Tylenol) 325 Mg Cap, 325 MG PO Q4HPRN PRN, #30 CAP 0 Refills Take 1-2 caps po q4h prn for pain. (Do not exceed 3,000mg of acetaminophen in 24 hours) Prov:LINDA ROSEN [facility] 02/26/23 Reported Medications Diphenoxylate W/ Atropine (Lomotil) 2.5 Mg Tab, 1 TAB PO TID PRN for FOR DIARRHEA, #30 TAB 05/27/19 Gemfibrozil (Gemfibrozil) 600 Mg Tab, 1 TAB PO DAILY, #60 TAB 5 Refills 05/27/19 Allopurinol (ZYLOPRIM TABLET) 300 Mg Tb, 1 TAB PO DAILY, #30 TAB 5 Refills 05/27/19 Review of systems Review of Systems: HEENT:Normal, CVS:Normal, RESPIRATORY:Normal, GI:Abnormal (See HPI), :Normal, MSK:Normal, NEURO:Normal Examination Vital signs Vital Signs Date Time Temp Pulse Resp B/P (MAP) Pulse Ox O2 Delivery O2 Flow Rate FiO2 07/23/25 09:00 71 14 188/82 (117) 100 07/23/25 07:30 Nasal Cannula* 2 28 07/23/25 07:30 98.1 98.1 Medications Current Medications Medications (Trade) Dose Ordered Sig/Alexa Route PRN Reason Start Time Stop Time Status Last Admin Piperacillin Sod/ Tazobactam Sod 100 ml @ 25 mls/hr Q8HR IV 07/23/25 06:00 07/23/25 07:04 Albuterol (Ventolin Medneb) 2.5 mg Q4HPRN PRN NEB SHORTNESS OF BREATH 07/23/25 00:45 Ipratropium [place] (Atrovent Medneb) 0.5 mg Q4HPRN PRN NEB SHORTNESS OF BREATH 07/23/25 00:45 Ondansetron HCl (Zofran Po) 4 mg Q4HP PRN PO NAUSEA / VOMITING 07/23/25 00:45 07/23/25 10:18 DC 07/23/25 05:05 Sodium Chloride 1,000 ml @ 75 mls/hr [id number] IV 07/23/25 00:45 07/23/25 03:11 Potassium Chloride 100 ml @ 50 mls/hr Q2H IV 07/23/25 00:45 07/23/25 06:44 DC 07/23/25 06:56 Ondansetron HCl (Zofran) 4 mg Q4HPRN PRN IV NAUSEA / VOMITING 07/23/25 10:30 UNV Hydromorphone HCl (Dilaudid Injection) 1 mg Q2HPRN PRN IV PAIN SCALE 7 THRU 10 07/23/25 10:45 07/23/25 11:48 DC Hydralazine HCl (Apresoline Injection) 10 mg Q6HPRN PRN IV SBP>150 07/23/25 10:45 Ondansetron HCl (Zofran) 4 mg Q6HPRN PRN IV NAUSEA / VOMITING 07/23/25 10:45 Heparin Sodium/ Dextrose 250 ml @ 15 mls/hr [id number] IV 07/23/25 19:30 Hydromorphone HCl (Dilaudid Injection) 0.5 mg Q2HPRN PRN IV PAIN SCALE 7 THRU 10 07/23/25 12:00 UNV Laboratory Labs Test 07/23/25 09:14 07/23/25 02:42 07/22/25 22:40 07/22/25 20:46 Range/Units Lactic Acid Level 1.3 0.4-2.0 mmol/L Prothrombin Time 10.4 9.3-11.8 sec Prothrombin Time INR 0.98 0.9-1.15 Activated Partial Thromboplast Time 27.1 24.5-34.5 SEC D-Dimer, Quantitative 13.97 H 0.0-0.49 mg/L FEU Serum Osmolality 282 278-298 mOsm/kg Urine Color Yellow Yellow Urine Clarity Clear Clear Urine pH 6.0 5.0-9.0 Urine Specific [place] > 1.050 H 1.001-1.035 Urine Protein 1+ H Negative Urine Ketones Negative Negative Urine Blood Negative Negative /uL Urine Nitrite Negative Negative Urine Bilirubin Negative Negative Urine Urobilinogen Normal Negative mg/dL Urine Leukocyte Esterase Negative Negative /uL Urine RBC None seen 0 - 4 /hpf Urine Microscopic WBC 2 0-5 /HPF Urine Squamous Epithelial Cells Few <5 /hpf Urine Bacteria None seen None Seen /hpf Urine Hyaline Casts Few 0 - 2 /lpf Urine Mucus Few None Seen Urine Osmolality 554 mOsm/kg Urine Sodium 11 L 40-220 mmol/L Urine Glucose Normal Normal mg/dL White Blood Count 19.0 H 4.4-10.8 10^3/uL Red Blood Count 4.33 4.0-5.20 10^6/uL Hemoglobin 12.1 L 12.2-16.2 g/dL Hematocrit 36.6 36.0-46.0 % Mean Corpuscular Volume 84.5 80.0-100.0 fL Mean Corpuscular Hemoglobin 27.9 L 28.0-32.0 pg Mean Corpuscular Hemoglobin Concent 33.1 32.0-36.0 g/dL Red Cell Distribution Width 14.2 11.8-14.3 % Platelet Count 303 140-450 10^3/uL Mean Platelet Volume 9.3 6.9-10.8 fL Neutrophils (%) (Auto) 81.6 H 37.0-80.0 % Lymphocytes (%) (Auto) 8.6 L 10.0-50.0 % Monocytes (%) (Auto) 8.5 0.0-12.0 % Eosinophils (%) (Auto) 0.8 0.0-7.0 % Basophils (%) (Auto) 0.5 0.0-2.0 % Neutrophils # (Auto) 15.5 H 1.6-8.6 10 ^3/uL Lymphocytes # (Auto) 1.6 0.4-5.4 10 ^3/uL Monocytes # (Auto) 1.6 H 0-1.3 10 ^3/uL Eosinophils # (Auto) 0.1 0-0.8 10 ^3/uL Basophils # (Auto) 0.1 0-0.2 10 ^3/uL Nucleated Red Blood Cells 0.0 % Sodium Level 125 L 136-145 mmol/L Potassium Level 2.9 L 3.5-5.1 mmol/L Chloride Level 87 L 98-107 mmol/L Carbon Dioxide Level 27 20-31 mmol/L Anion Gap 11 5-15 Blood Urea Nitrogen 18 9-23 mg/dL Creatinine 1.11 H 0.550-1.02 mg/dL Glomerular Filtration Rate Calc 50 >90 mL/min BUN/Creatinine Ratio 16.2 10.0-20.0 Serum Glucose 135 H 74-106 mg/dL Hemoglobin A1c 5.9 H <5.7 % A1C Calcium Level 9.3 8.7-10.4 mg/dL Magnesium Level 2.3 1.6-2.6 mg/dL Total Bilirubin 0.4 0.2-1.0 mg/dL Aspartate Amino Transferase (AST) 25 13-40 U/L Alanine Aminotransferase (ALT) 11 7-40 U/L Alkaline Phosphatase 71 46-116 U/L Total Protein 7.6 5.7-8.2 g/dL Albumin 4.5 3.2-4.8 g/dL Thyroid Stimulating Hormone (TSH) 1.62 0.55-4.78 uIU/mL Test 07/22/25 13:27 Range/Units Troponin I High Sensitivity 16 </=34 ng/L Lipase 31 12-53 U/L Examination: GENERAL:Normal, ABDOMEN:Abnormal (Distended, midline scar well healed, Pfannenstiel scar well healed, soft, depressible, diffuse tenderness worse in the right lower quadrant and suprapubic area, no rebound, no guarding, negative Rosenthal's sign) Problem List/Assessment/Plan Problems: (1) Cholelithiasis (2) Terminal ileitis Assessment and Plan Mrs. Hewitt is a 84-year-old female who has presented to the ED with several days of diffuse abdominal pain worse in the right lower quadrant, nausea, vomiting. On arrival she had a white count of 20, which went down 1 point to 19 today. Surgery was consulted due to gallstones seen on abdominal ultrasound. Patient does have multiple gallstones in the gallbladder but there is no acute inflammatory changes noticed around the gallbladder and patient is not complaining of any right upper quadrant pain or having right upper quadrant epigastric pain after eating. At this time it is highly unlikely that the cause of her sepsis is the gallbladder, I believe that the source of her problems is the terminal ileitis seen on CT scan. CT shows severe inflammation and bowel wall edema of the terminal ileum, it also shows small bowel dilatation and and free fluid in the peritoneal cavity (likely due to ileum inflammation). At this point would not advise surgical management for her gallbladder, this could be done as an outpatient. I do agree with the current management for terminal ileitis, unclear why this is happening, patient does not have any personal or family history of Crohn's disease. Recommend 1. No intervention indicated at this time for gallstones, not acutely inflamed 2. Continue with IV antibiotics, Zosyn, for ileitis 3. Pain and nausea control 4. Avoid cathartic medications at this time 5. GI consultation for possible colonoscopy 6. We will continue to follow Plan discussed with Plan discussed with: Patient Visit Coding Surgery Date of Service if different f: Jul 23, 2025 Billing Provider: MARTA HERNANDEZ MD Surgery Visit Codes: 17452 - INP CONSULT <110 MIN MARTA HERNANDEZ MD Jul 23, 2025 12:05
--- NOTE | 2025-07-23 12:08 | DVH ---
US BiLat Lower DVT HISTORY: dvt COMPARISON: None TECHNIQUE: Duplex doppler evaluation of the deep venous system of the lower extremity from the common femoral veins, superficial femoral vein, great saphenous vein, deep femoral vein, popliteal vein, an d calf veins, including color doppler and spectral/pulsed waveform analysis, was performed. FINDINGS: Right: - Common femoral vein: Compressible - Deep femoral vein: Compressible - Femoral vein: Compressible - Popliteal vein: Compressible - Posterior tibial vein: Waveforms present - Other: Nothing Left: - Common femoral vein: Compressible - Deep femoral vein: Compressible - Femoral vein: Compressible - Popliteal vein: Compressible - Posterior tibial vein: Waveforms present - Other: Nothing IMPRESSION: No right or left lower extremity deep venous thrombosis.
[2025-07-23 12:41] LABS: Hematocrit 34.9 % (36.0-46.0); Hemoglobin 11.2 g/dL (12.2-16.2); Mean Corpuscular Hemoglobin 27.4 pg (28.0-32.0); Mean Corpuscular Volume 85.3 fL (80.0-100.0); Nucleated Red Blood Cells % 0.0 %
[2025-07-23 12:51] LABS: Potassium 3.8 mmol/L (3.5-5.1)
[2025-07-23 12:52] LABS: Anion Gap 10 (5-15); Calcium 9.2 mg/dL (8.7-10.4); Carbon Dioxide 30 mmol/L (20-31)
[2025-07-23 12:56] LABS: Chloride 90 mmol/L (98-107); Sodium 130 mmol/L (136-145)
[2025-07-23 12:57] LABS: Glucose 90 mg/dL (74-106); Magnesium 2.2 mg/dL (1.6-2.6)
[2025-07-23 12:57] LABS: INR 1.01 (0.9-1.15); Partial Thromboplastin Time 27.3 SEC (24.5-34.5); Prothrombin Time 10.7 sec (9.3-11.8)
[2025-07-23 12:58] LABS: BUN/Creatinine Ratio 22.7 (10.0-20.0); Blood Urea Nitrogen 22 mg/dL (9-23)
[2025-07-23] MEDS: hydrALAZINE HCL 20 MG/ML VL IV PRN (13:31)
[2025-07-23] MEDS: HYDROmorphone HCL 2 MG/ML VL/or syr IV PRN (13:32)
[2025-07-23] MEDS: ONDANSETRON HCL 4 MG/2 ML VIAL IV PRN (13:33)
--- NOTE | 2025-07-23 14:03 | DVHINCON2 ---
Date of service: Jul 23, 2025 Referring Physician Acute kidney injury Reason for Consultation Dr. Murillo History of Present Illness Patient is a 84-year-old female with past medical history of COPD and emphysema, Gout, High Lipids, and HTN is admitted for abdominal pain associated with nausea vomiting and diarrhea for four days on admission patient found to have elevated BUN creatinine associated with multiple electrolyte abnormalities, Nephrology is consulted for Acute kidney injury Past Medical History PAST MEDICAL HISTORY: COPD, Gout, High Lipids, HTN, small-bowel obstruct Past Surgical History Surgical History: Hysterectomy, ex lap, mitral valve repair Allergies: Coded Allergies: Morphine (Verified Allergy, Severe, 06/22/25) Peanut-containing Drug Products (Verified Allergy, Unknown, 06/22/25) Sulfa Drugs (Verified Allergy, Unknown, 06/22/25) Home Meds Active Scripts Nifedipine (Nifedipine Er) 60 Mg Tab, 1 TAB PO DAILY, #30 TAB 0 Refills Prov:TYRONE ORDOÑEZ MD 05/20/25 Losartan Potassium (Losartan Potassium) 50 Mg Tab, 100 MG PO DAILY for 30 Days, #60 TAB Prov:TYORNE ORDOÑEZ MD 05/20/25 Chlorthalidone (Chlorthalidone) 25 Mg Tab, 25 MG PO DAILY@BREAKFAST for 30 Days, #30 TAB Prov:TYRONE ORDOÑEZ MD 05/20/25 Carvedilol (COREG) 12.5 Mg Tab, 12.5 MG PO Q12HR for 30 Days, #60 TAB Prov:TYRONE ORDOÑEZ MD 05/20/25 Aspirin (Aspirin Low Dose) 81 Mg Tab, 81 MG PO DAILY for 90 Days, #90 TAB 1 Refill Prov:TYRONE ORDOÑEZ MD 05/20/25 Atorvastatin Calcium (ATORVASTATIN CALCIUM) 80 Mg Tab, 1 TAB PO DAILY, #90 TAB 1 Refill Prov:TYRONE ORDOÑEZ MD 05/20/25 Acetaminophen (Tylenol) 325 Mg Cap, 325 MG PO Q4HPRN PRN, #30 CAP 0 Refills Take 1-2 caps po q4h prn for pain. (Do not exceed 3,000mg of acetaminophen in 24 hours) Prov:LINDA ROSEN [facility] 02/26/23 Reported Medications Diphenoxylate W/ Atropine (Lomotil) 2.5 Mg Tab, 1 TAB PO TID PRN for FOR DIARRHEA, #30 TAB 05/27/19 Gemfibrozil (Gemfibrozil) 600 Mg Tab, 1 TAB PO DAILY, #60 TAB 5 Refills 05/27/19 Allopurinol (ZYLOPRIM TABLET) 300 Mg Tb, 1 TAB PO DAILY, #30 TAB 5 Refills 05/27/19 Current Medications Current Medications Medications (Trade) Dose Ordered Sig/Alexa Route PRN Reason Start Time Stop Time Status Last Admin Piperacillin Sod/ Tazobactam Sod 100 ml @ 25 mls/hr Q8HR IV 07/23/25 06:00 07/23/25 07:04 Albuterol (Ventolin Medneb) 2.5 mg Q4HPRN PRN NEB SHORTNESS OF BREATH 07/23/25 00:45 Ipratropium [place] (Atrovent Medneb) 0.5 mg Q4HPRN PRN NEB SHORTNESS OF BREATH 07/23/25 00:45 Ondansetron HCl (Zofran Po) 4 mg Q4HP PRN PO NAUSEA / VOMITING 07/23/25 00:45 07/23/25 10:18 DC 07/23/25 05:05 Sodium Chloride 1,000 ml @ 75 mls/hr [id number] IV 07/23/25 00:45 07/23/25 14:17 Potassium Chloride 100 ml @ 50 mls/hr Q2H IV 07/23/25 00:45 07/23/25 06:44 DC 07/23/25 06:56 Ondansetron HCl (Zofran) 4 mg Q4HPRN PRN IV NAUSEA / VOMITING 07/23/25 10:30 UNV Hydromorphone HCl (Dilaudid Injection) 1 mg Q2HPRN PRN IV PAIN SCALE 7 THRU 10 07/23/25 10:45 07/23/25 11:48 DC Hydralazine HCl (Apresoline Injection) 10 mg Q6HPRN PRN IV SBP>150 07/23/25 10:45 07/23/25 13:31 Ondansetron HCl (Zofran) 4 mg Q6HPRN PRN IV NAUSEA / VOMITING 07/23/25 10:45 07/23/25 13:33 Heparin Sodium/ Dextrose 250 ml @ 15 mls/hr [id number] IV 07/23/25 19:30 Hydromorphone HCl (Dilaudid Injection) 0.5 mg Q2HPRN PRN IV PAIN SCALE 7 THRU 10 07/23/25 12:00 07/23/25 13:32 Metronidazole 100 ml @ 100 mls/hr Q8HR IV 07/23/25 14:00 07/23/25 14:29 Family History: Arthritis G8 MOTHER G8 SISTER Asthma G8 SISTER G8 SISTER Chronic obstructive pulmonary disease G8 BROTHER G8 SISTER Diabetes mellitus G8 SISTER Hypertension G8 MOTHER G8 FATHER G8 BROTHER G8 BROTHER G8 BROTHER G8 SISTER G8 SISTER G8 SISTER Thyroid disease G8 SISTER Review of Systems All 12 item review of systems reviewed with the patient nonsignificant except what is mentioned in the history of present illness H&P Exam Vital Signs/I&O Vital Sign Date Time Temp Pulse Resp B/P (MAP) Pulse Ox O2 Delivery O2 Flow Rate FiO2 07/23/25 14:46 69 14 155/76 (102) 99 07/23/25 07:30 Nasal Cannula* 2 28 07/23/25 07:30 98.1 98.1 Intake and Output 07/22/25 07/23/25 19:00 07:00 Intake Total 125 ml Balance 125 ml Intake IV Total 125 ml Physical Exam Patient lying comfortably in bed Lungs clear to auscultation bilaterally Cardiac exam regular rate and rhythm GI soft nontender normal Extremities no clubbing cyanosis or edema Neuro nonfocal Labs/Diagnostic Data Labs/Diagnostic Data Laboratory Tests Test 07/23/25 13:12 07/23/25 12:21 07/23/25 10:40 07/23/25 09:14 Range/Units Erythrocyte Sedimentation Rate 46 H 0-20 mm/hr Parathyroid Hormone (Intact) 26.2 18.4-80.1 pg/mL White Blood Count 15.6 H 4.4-10.8 10^3/uL Red Blood Count 4.09 4.0-5.20 10^6/uL Hemoglobin 11.2 L 12.2-16.2 g/dL Hematocrit 34.9 L 36.0-46.0 % Mean Corpuscular Volume 85.3 80.0-100.0 fL Mean Corpuscular Hemoglobin 27.4 L 28.0-32.0 pg Mean Corpuscular Hemoglobin Concent 32.1 32.0-36.0 g/dL Red Cell Distribution Width 14.5 H 11.8-14.3 % Platelet Count 320 140-450 10^3/uL Mean Platelet Volume 8.7 6.9-10.8 fL Neutrophils (%) (Auto) 78.3 37.0-80.0 % Lymphocytes (%) (Auto) 10.6 10.0-50.0 % Monocytes (%) (Auto) 9.2 0.0-12.0 % Eosinophils (%) (Auto) 1.4 0.0-7.0 % Basophils (%) (Auto) 0.5 0.0-2.0 % Neutrophils # (Auto) 12.2 H 1.6-8.6 10 ^3/uL Lymphocytes # (Auto) 1.7 0.4-5.4 10 ^3/uL Monocytes # (Auto) 1.4 H 0-1.3 10 ^3/uL Eosinophils # (Auto) 0.2 0-0.8 10 ^3/uL Basophils # (Auto) 0.1 0-0.2 10 ^3/uL Nucleated Red Blood Cells 0.0 % Prothrombin Time 10.7 9.3-11.8 sec Prothrombin Time INR 1.01 0.9-1.15 Activated Partial Thromboplast Time 27.3 24.5-34.5 SEC Vitamin D 25-Hydroxy 50.6 30.0-100 ng/mL Sodium Level 130 #L 136-145 mmol/L Potassium Level 3.8 3.5-5.1 mmol/L Chloride Level 90 L 98-107 mmol/L Carbon Dioxide Level 30 20-31 mmol/L Anion Gap 10 5-15 Blood Urea Nitrogen 22 9-23 mg/dL Creatinine 0.97 0.550-1.02 mg/dL Glomerular Filtration Rate Calc 58 >90 mL/min BUN/Creatinine Ratio 22.7 H 10.0-20.0 Serum Glucose 90 74-106 mg/dL Uric Acid 4.7 3.1-7.8 mg/dL Calcium Level 9.2 8.7-10.4 mg/dL Phosphorus Level 3.4 2.4-5.1 mg/dL Magnesium Level 2.2 1.6-2.6 mg/dL C-Reactive Protein High Sensitivity 18.21 H <1.0 mg/dL Lactic Acid Level 1.3 0.4-2.0 mmol/L Test 07/23/25 05:15 07/23/25 02:42 07/22/25 23:01 07/22/25 22:40 Range/Units Lactic Acid Level 3.6 *H 2.3 *H 2.3 *H 0.4-2.0 mmol/L Prothrombin Time 10.4 9.3-11.8 sec Prothrombin Time INR 0.98 0.9-1.15 Activated Partial Thromboplast Time 27.1 24.5-34.5 SEC D-Dimer, Quantitative 13.97 H 0.0-0.49 mg/L FEU Serum Osmolality 282 278-298 mOsm/kg Urine Color Yellow Yellow Urine Clarity Clear Clear Urine pH 6.0 5.0-9.0 Urine Specific [place] > 1.050 H 1.001-1.035 Urine Protein 1+ H Negative Urine Ketones Negative Negative Urine Blood Negative Negative /uL Urine Nitrite Negative Negative Urine Bilirubin Negative Negative Urine Urobilinogen Normal Negative mg/dL Urine Leukocyte Esterase Negative Negative /uL Urine RBC None seen 0 - 4 /hpf Urine Microscopic WBC 2 0-5 /HPF Urine Squamous Epithelial Cells Few <5 /hpf Urine Bacteria None seen None Seen /hpf Urine Hyaline Casts Few 0 - 2 /lpf Urine Mucus Few None Seen Urine Osmolality 554 mOsm/kg Urine Sodium 11 L 40-220 mmol/L Urine Glucose Normal Normal mg/dL Test 07/22/25 20:46 07/22/25 13:27 Range/Units White Blood Count 19.0 H 20.2 H 4.4-10.8 10^3/uL Red Blood Count 4.33 4.16 4.0-5.20 10^6/uL Hemoglobin 12.1 L 11.6 L 12.2-16.2 g/dL Hematocrit 36.6 34.9 L 36.0-46.0 % Mean Corpuscular Volume 84.5 83.8 80.0-100.0 fL Mean Corpuscular Hemoglobin 27.9 L 27.8 L 28.0-32.0 pg Mean Corpuscular Hemoglobin Concent 33.1 33.2 32.0-36.0 g/dL Red Cell Distribution Width 14.2 14.4 H 11.8-14.3 % Platelet Count 303 329 140-450 10^3/uL Mean Platelet Volume 9.3 9.4 6.9-10.8 fL Neutrophils (%) (Auto) 81.6 H 85.8 H 37.0-80.0 % Lymphocytes (%) (Auto) 8.6 L 5.5 L 10.0-50.0 % Monocytes (%) (Auto) 8.5 8.1 0.0-12.0 % Eosinophils (%) (Auto) 0.8 0.3 0.0-7.0 % Basophils (%) (Auto) 0.5 0.3 0.0-2.0 % Neutrophils # (Auto) 15.5 H 17.3 H 1.6-8.6 10 ^3/uL Lymphocytes # (Auto) 1.6 1.1 0.4-5.4 10 ^3/uL Monocytes # (Auto) 1.6 H 1.6 H 0-1.3 10 ^3/uL Eosinophils # (Auto) 0.1 0.1 0-0.8 10 ^3/uL Basophils # (Auto) 0.1 0.1 0-0.2 10 ^3/uL Nucleated Red Blood Cells 0.0 0.0 % Sodium Level 125 L 126 L 136-145 mmol/L Potassium Level 2.9 L 3.1 L 3.5-5.1 mmol/L Chloride Level 87 L 86 L 98-107 mmol/L Carbon Dioxide Level 27 31 20-31 mmol/L Anion Gap 11 9 5-15 Blood Urea Nitrogen 18 21 9-23 mg/dL Creatinine 1.11 H 1.16 H 0.550-1.02 mg/dL Glomerular Filtration Rate Calc 50 47 >90 mL/min BUN/Creatinine Ratio 16.2 18.1 10.0-20.0 Serum Glucose 135 H 144 H 74-106 mg/dL Hemoglobin A1c 5.9 H <5.7 % A1C Lactic Acid Level 2.7 *H 0.4-2.0 mmol/L Calcium Level 9.3 9.1 8.7-10.4 mg/dL Magnesium Level 2.3 2.0 1.6-2.6 mg/dL Total Bilirubin 0.4 0.6 0.2-1.0 mg/dL Aspartate Amino Transferase (AST) 25 21 13-40 U/L Alanine Aminotransferase (ALT) 11 < 9 7-40 U/L Alkaline Phosphatase 71 64 46-116 U/L Total Protein 7.6 7.0 5.7-8.2 g/dL Albumin 4.5 4.0 3.2-4.8 g/dL Thyroid Stimulating Hormone (TSH) 1.62 0.55-4.78 uIU/mL Troponin I High Sensitivity 16 </=34 ng/L Lipase 31 12-53 U/L Assessment Acute kidney injury superimposed Chronic Kidney Disease secondary hemodynamic mediated Dehydration Terminal ileitis Hyponatremia due to dehydration Hypokalemia due to potassium depletion Sepsis Hypertension Anemia of chronic kidney disease Recommendations Closely monitor fluid and electrolytes Avoid nephrotoxic medications Strict I&Os Check kidney ultrasound Check urine protein excretion I agree with IV fluid hydration KCL replacement IV antibiotics GI consult We will continue to follow Patient seen and examined by myself. I discussed my plan of care with the patient and primary nurse at the bedside I would like to thank Dr. Murillo for the consult, will follow Plan discussed with: Patient SUSAN CLINE MD Jul 23, 2025 14:02
[2025-07-23] MEDS ORDERED: HEPARIN DRIP/D5W 100UNITS/ML 250 ML IV SCH (19:30)
[2025-07-23] MEDS: HEPARIN DRIP/D5W 100UNITS/ML 250 ML IV SCH (21:19)
[2025-07-24] VITALS (10 sets, daily range): BP systolic 123–175; BP diastolic 73–96; PULSE 77–91; RESP 16–18; TEMP 97.8–98.8; O2SAT 95–100
[2025-07-24 00:51] LABS: Urine Protein, UAD TRACE (Negative)
[2025-07-24 01:34] LABS: Protein, Urine 81.2 mg/dL (1-14)
[2025-07-24 04:31] LABS: Hematocrit 33.8 % (36.0-46.0); Hemoglobin 11.1 g/dL (12.2-16.2); Mean Corpuscular Hemoglobin 27.9 pg (28.0-32.0); Mean Corpuscular Volume 84.9 fL (80.0-100.0); Nucleated Red Blood Cells % 0.1 %
[2025-07-24 04:34] LABS: Anion Gap 13 (5-15); Calcium 9.5 mg/dL (8.7-10.4); Carbon Dioxide 28 mmol/L (20-31)
[2025-07-24 04:39] LABS: BUN/Creatinine Ratio 15.1 (10.0-20.0); Blood Urea Nitrogen 14 mg/dL (9-23); Glucose 92 mg/dL (74-106)
[2025-07-24 04:41] LABS: Chloride 90 mmol/L (98-107); Potassium 3.1 mmol/L (3.5-5.1); Sodium 131 mmol/L (136-145)
[2025-07-24 04:44] LABS: INR 1.04 (0.9-1.15); Prothrombin Time 11.0 sec (9.3-11.8)
[2025-07-24 04:48] LABS: Partial Thromboplastin Time 80.5 SEC (24.5-34.5)
[2025-07-24] MEDS: HEPARIN DRIP/D5W 100UNITS/ML 250 ML IV SCH ×2 (05:10→13:06)
--- NOTE | 2025-07-24 09:50 | DVHPN2 ---
Progress Note Date Seen: Jul 24, 2025 Resident Creating Document: JOSIE SIERRA RESIDENT Medical Necessity Reason Pt with a Central, PICC or Fol: Yes The following are medically ne: Pimentel Catheter Subjective Review of Systems Patient seen and examined at bedside Still has not had a bowel movement, last BM 07/22/2025 Denies any further nausea or vomiting, however, patient does not note she coughed up scant bright red blood Does not note feeling better than yesterday, continued abdominal pain/soreness Per patient she is still able to pass gas, last time she noticed it was yesterday in the evening. Objective vital signs Vital Sign Date Time Temp Pulse Resp B/P (MAP) Pulse Ox O2 Delivery O2 Flow Rate FiO2 07/24/25 08:35 82 18 135/69 07/24/25 05:00 97.8 98 97.8 07/23/25 19:40 Nasal Cannula* 3 32 Total Intake and Output 07/23/25 07/23/25 07/24/25 15:00 23:00 07:00 Intake Total 600 ml 200 ml 190 ml Balance 600 ml 200 ml 190 ml medications Current Medications Medications Dose Ordered Sig/Alexa Route Start Time Stop Time Status Last Admin Dose Admin Piperacillin Sod/ Tazobactam Sod 100 ml @ 25 mls/hr Q8HR IV 07/23/25 06:00 07/24/25 06:09 25 MLS/HR Albuterol 2.5 mg Q4HPRN PRN NEB 07/23/25 00:45 Ipratropium [place] 0.5 mg Q4HPRN PRN NEB 07/23/25 00:45 Sodium Chloride 1,000 ml @ 75 mls/hr [id number] IV 07/23/25 00:45 07/23/25 14:17 75 MLS/HR Ondansetron HCl 4 mg Q4HPRN PRN IV 07/23/25 10:30 UNV Hydralazine HCl 10 mg Q6HPRN PRN IV 07/23/25 10:45 07/23/25 21:06 10 MG Ondansetron HCl 4 mg Q6HPRN PRN IV 07/23/25 10:45 07/23/25 23:46 4 MG Hydromorphone HCl 0.5 mg Q2HPRN PRN IV 07/23/25 12:00 07/24/25 08:05 0.5 MG Metronidazole 100 ml @ 100 mls/hr Q8HR IV 07/23/25 14:00 07/24/25 05:09 100 MLS/HR Heparin Sodium/ Dextrose 250 ml @ 13 mls/hr [id number] IV 07/24/25 05:00 07/24/25 05:10 13 MLS/HR Examination General Appearance: Cooperative. Well developed. Well nourished. NAD Pulmonary/Respiratory: Chest non-tender. Equal bilateral air entry Cardiovascular/Chest: Regular rate and rhythm. Abdominal Exam: Normal bowel sounds. Soft. normal abdomen, no visible veins, diffuse generalized tenderness to palpation, most pronounced in the left lower quadrant. Negative Rosenthal's sign. No hepatospenomegaly. No masses Neuro/Mental Status: A&O x4. Coherent. Skin Exam: Normal inspection. Normal color. Warm. Dry laboratory and microbiology Laboratory Tests 07/24/25 03:16 Test 07/24/25 03:16 Range/Units Serum Glucose 92 74-106 mg/dL Microbiology Date/Time Source Procedure Growth Status 07/23/25 02:42 Blood Blood Culture - Preliminary NO GROWTH AFTER 24 HOURS OF INCUBATION. 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 Cholelithiasis, cholecystitis less likely Acute intractable abdominal pain due to above Small-bowel obstruction not excluded DARVIN likely hemodynamically mediated/VMN Hyponatremia Hypokalemia Elevated D-dimer; r/o PE Plan: IV Protonix 40 mg b.i.d. IV metronidazole Q 8 hours Continue IV Zosyn Pending Stool WBC, IBD panel, stool bacterial culture, stool occult blood IV hydration Ice chips only Workup for inflammatory bowel disease with GI in the outpatient clinic Thank you so much for the opportunity to consult on your patient. GI team will follow the patient. In case of any questions or concerns please feel free to reach out. Plan discussed with Dr. Antonio Plan discussed with: Patient, Other (RN) My Orders My Orders Orders - JOSIE SIERRA Procedure Category Date Status Time Stool Wbc LAB 07/23/25 Logged 11:28 Stool Bacterial SILVER 07/23/25 Logged Culture 11:28 Stool Occult Blood LAB 07/23/25 Logged 11:28 Inflammatory Bowel LAB 07/23/25 In Process Disease-Ibd 11:28 Metronidazole PHA 07/23/25 In Process 500mg/100ml (Flagyl 14:00 Npo Except Ice Chips WANDA 07/23/25 In Process 13:08 Npo (Nothing By DIET 07/23/25 Transmitted Mouth) Diet Lunch Potassium Chl [place] PHA 07/24/25 Verified KCL 10:00 JOSIE SIERRA RESIDENT Jul 24, 2025 09:50
[2025-07-24] MEDS: POTASSIUM CHL 20MEQ/100ML 100 ML IV SCH (10:00)
--- NOTE | 2025-07-24 10:44 | DVHPN2 ---
Progress Note Date Seen: Jul 24, 2025 Medical Necessity Reason Pt with a Central, PICC or Fol: No Subjective Patient reports: No new complaints Other Systems: Patient seen and examined by myself today in follow-up Objective vital signs Vital Sign Date Time Temp Pulse Resp B/P (MAP) Pulse Ox O2 Delivery O2 Flow Rate FiO2 07/24/25 09:52 100 Nasal Cannula* 2 28 07/24/25 09:00 98.6 83 18 172/80 (110) 98.6 Total Intake and Output 07/23/25 07/23/25 07/24/25 15:00 23:00 07:00 Intake Total 600 ml 200 ml 190 ml Balance 600 ml 200 ml 190 ml medications Current Medications Medications Dose Ordered Sig/Alexa Route Start Time Stop Time Status Last Admin Dose Admin Piperacillin Sod/ Tazobactam Sod 100 ml @ 25 mls/hr Q8HR IV 07/23/25 06:00 07/24/25 06:09 25 MLS/HR Albuterol 2.5 mg Q4HPRN PRN NEB 07/23/25 00:45 Ipratropium [place] 0.5 mg Q4HPRN PRN NEB 07/23/25 00:45 Sodium Chloride 1,000 ml @ 75 mls/hr [id number] IV 07/23/25 00:45 07/23/25 14:17 75 MLS/HR Ondansetron HCl 4 mg Q4HPRN PRN IV 07/23/25 10:30 UNV Hydralazine HCl 10 mg Q6HPRN PRN IV 07/23/25 10:45 07/23/25 21:06 10 MG Ondansetron HCl 4 mg Q6HPRN PRN IV 07/23/25 10:45 07/23/25 23:46 4 MG Hydromorphone HCl 0.5 mg Q2HPRN PRN IV 07/23/25 12:00 07/24/25 08:05 0.5 MG Metronidazole 100 ml @ 100 mls/hr Q8HR IV 07/23/25 14:00 07/24/25 05:09 100 MLS/HR Heparin Sodium/ Dextrose 250 ml @ 13 mls/hr [id number] IV 07/24/25 05:00 07/24/25 05:10 13 MLS/HR Potassium Chloride 100 ml @ 50 mls/hr Q2H IV 07/24/25 10:00 07/24/25 13:59 Examination: LUNGS:Normal, CVS:Normal, MSK:Normal laboratory and microbiology Laboratory Tests 07/24/25 03:16 Test 07/24/25 03:16 Range/Units Serum Glucose 92 74-106 mg/dL Microbiology Date/Time Source Procedure Growth Status 07/23/25 02:42 Blood Blood Culture - Preliminary NO GROWTH AFTER 24 HOURS OF INCUBATION. Resulted Problem List/Assessment/Plan Problem List/Assessment/Plan Acute kidney injury superimposed Chronic Kidney Disease secondary hemodynamic mediated, FeNa <1% Dehydration Terminal ileitis Hyponatremia due to dehydration Hypokalemia due to potassium depletion Sepsis Hypertension Anemia of chronic kidney disease Mild proteinuria Complex cyst left kidney Recommendations Kidney function is improving No urine output charted Hyponatremia appropriately resolving Strict I&Os Check kidney ultrasound IVF NS with 40 mEq KCL at 75 cc/hour Avoid rapid correction of hyponatremia KCL replacement IV antibiotics GI consult We will continue to follow Plan discussed with: Patient SUSAN CLINE MD Jul 24, 2025 10:43
[2025-07-24] MEDS ORDERED: SOD CHL 0.9%/ KCL 40MEQ 1,000 ML IV SCH (10:45)
--- NOTE | 2025-07-24 11:24 | DVH ---
CLINICAL HISTORY: complex cyst left kidney TECHNIQUE: Complete ultrasound exam of the kidneys and bladder was performed. COMPARISON: XY KUB ABDOMEN SINGLE VIEW on DOS: 07/23/25, US ABDOMEN COMPLETE SONOGRAM on DOS: 07/23/25 FINDINGS: The right kidney has normal echogenicity and measures 9.5 cm. There is no focal parenchymal abnormali ty or evidence for stone. There is no hydronephrosis. The left kidney has normal echogenicity and measures 11.7 cm. There is a 2.1 team upper pole complex lesion with no bnormality or evidence for stone. There is no hydronephrosis. The bladder demonstrates a gonzales catheter. The bladder volume is 159 ml. IMPRESSION: 2.1 cm complex left renal lesion. Recommend renal MRI or CT for further evaluation. Fully catheter in place. Bladder volume equals 159 ml. Consider gonzales catheter dysfunction. Cholelithiasis.
[2025-07-24 11:37] LABS: INR 1.07 (0.9-1.15); Prothrombin Time 11.3 sec (9.3-11.8)
[2025-07-24 11:39] LABS: Partial Thromboplastin Time 102.4 SEC (24.5-34.5)
[2025-07-24] MEDS: SODIUM CHLORIDE 0.9% 500 ML IV ONE (11:45)
--- NOTE | 2025-07-24 12:00 | CONS ---
Pharmacy Clinical Information: HOLD HEPARIN DRIPS FOR 1 HR THEN DECREASE HEPARIN DRIP RATE TO 1000 UNITS/HR PER APTT OF 102.4 NEXT APTT DRAW SCHEDULED FOR 1900 PER RX PROTOCOL HUGO JESUS CONFIRMED AND READ BACK Malissa Rendon PHARMACIST Jul 24, 2025 12:00
--- NOTE | 2025-07-24 12:05 | DVHPN2 ---
Subjective Seen and examined at bedside, abdominal pain improved. Will get CTA Chest to r/o PE. Changes from previous H/P or p: No Changes Eyes: No Pain, No Vision change, No Conjunctivae inflammation, No Eyelid inflammation, No Other, No Redness ENT: No Ear pain, No Ear discharge, No Nose pain, No Nose discharge, No Nose congestion, No Mouth pain, No Mouth swelling, No Throat pain, No Throat swelling, No Other Cardiovascular: No Chest Pain, No Palpitations, No Orthopnea, No Paroxysmal Noc. Dyspnea, No Edema, No Lt Headedness, No Other Respiratory: No Cough, No Dry, No Shortness of breath, No SOB with excertion, No Wheezing, No Hemoptysis, No Pleuritic Pain, No Sputum, No Other Gastrointestinal: Abdominal Pain; No Diarrhea, No Constipation, No Melena, No Hematochezia, No Other Genitourinary: No Dysuria, No Frequency, No Incontinence, No Hematuria, No Retention, No Other Musculoskeletal: No other, No neck pain, No shoulder pain, No arm pain, No back pain, No hand pain, No leg pain, No foot pain Skin: No Rash, No Lesions, No Jaundice, No Bruising, No Other Objective Vitals Vital Signs Date Time Temp Pulse Resp B/P (MAP) Pulse Ox O2 Delivery O2 Flow Rate FiO2 07/24/25 09:52 100 Nasal Cannula* 2 28 07/24/25 09:00 98.6 83 18 172/80 (110) 98.6 Intake/Output Intake and Output 07/24/25 07:00 Intake Total 990 ml Balance 990 ml Intake Oral 0 ml IV Total 990 ml Exam Gen: in NAD Cvs: N S1/S2 Resp: Diminished Abd: Distended, tender Sausage Cutter: AAO x 4 Medications Current Medications Medications Dose Ordered Sig/Alexa Route Start Time Stop Time Status Last Admin Dose Admin Piperacillin Sod/ Tazobactam Sod 100 ml @ 25 mls/hr Q8HR IV 07/23/25 06:00 07/24/25 06:09 25 MLS/HR Albuterol 2.5 mg Q4HPRN PRN NEB 07/23/25 00:45 Ipratropium [place] 0.5 mg Q4HPRN PRN NEB 07/23/25 00:45 Ondansetron HCl 4 mg Q4HPRN PRN IV 07/23/25 10:30 UNV Hydralazine HCl 10 mg Q6HPRN PRN IV 07/23/25 10:45 07/23/25 21:06 10 MG Ondansetron HCl 4 mg Q6HPRN PRN IV 07/23/25 10:45 07/23/25 23:46 4 MG Hydromorphone HCl 0.5 mg Q2HPRN PRN IV 07/23/25 12:00 07/24/25 08:05 0.5 MG Metronidazole 100 ml @ 100 mls/hr Q8HR IV 07/23/25 14:00 07/24/25 05:09 100 MLS/HR Potassium Chloride 100 ml @ 50 mls/hr Q2H IV 07/24/25 10:00 07/24/25 13:59 Potassium Chloride/Sodium Chloride 1,000 ml @ 75 mls/hr [id number] IV 07/24/25 10:45 Hold Heparin Sodium/ Dextrose 250 ml @ 10 mls/hr Q24H IV 07/24/25 13:00 Laboratory Results Laboratory Tests 07/24/25 03:16 Chemistry Test 07/24/25 03:16 Calcium Level 9.5 mg/dL (8.7-10.4) Coagulation Test 07/23/25 12:21 07/24/25 03:16 07/24/25 10:50 Prothrombin Time 10.7 sec (9.3-11.8) 11.0 sec (9.3-11.8) 11.3 sec (9.3-11.8) Prothrombin Time INR 1.01 (0.9-1.15) 1.04 (0.9-1.15) 1.07 (0.9-1.15) Activated Partial Thromboplast Time 27.3 SEC (24.5-34.5) 80.5 SEC (24.5-34.5) *H 102.4 SEC (24.5-34.5) *H Urinalysis Test 07/22/25 22:40 07/24/25 00:31 Urine Hyaline Casts Few /lpf (0 - 2) Urine Mucus Few (None Seen) Urine Osmolality 554 mOsm/kg Urine Color Yellow (Yellow) Urine Clarity Clear (Clear) Urine pH 5.5 (5.0-9.0) Urine Specific [place] 1.035 (1.001-1.035) Urine Protein Trace (Negative) H Urine Ketones Trace (Negative) Urine Blood Negative /uL (Negative) Urine Nitrite Negative (Negative) Urine Bilirubin Negative (Negative) Urine Urobilinogen Normal mg/dL (Negative) Urine Leukocyte Esterase Negative /uL (Negative) Urine RBC 1 /hpf (0 - 4) Urine Microscopic WBC 2 /HPF (0-5) Urine Squamous Epithelial Cells Few /hpf (<5) Urine Bacteria None seen /hpf (None Seen) Urine Creatinine 135.24 mg/dL (30.0-125.0) H Urine Protein/Creatinine Ratio 0.60 Urine Sodium 28 mmol/L (40-220) L Urine Glucose Normal mg/dL (Normal) Urine Total Protein 81.2 mg/dL (1-14) H Microbiology Microbiology Date/Time Source Procedure Growth Status 07/23/25 02:42 Blood Blood Culture - Preliminary NO GROWTH AFTER 24 HOURS OF INCUBATION. Resulted Assessment/Plan Assessment/Plan # Sepsis due to Terminal Ileitis vs Acute Cholecystitis - Abx - Surgical Cx # IBD? # Hypokalemia - Supplement # Possible PE?? - Heparin Drip - CTA Chest Critical care time 45 mins Plan discussed with: Patient My Orders Orders - LAVONNE FERRER MD Procedure Category Date Status Time Heparin Per Pharmacy [facility] 07/23/25 In Process Protocol 19:30 Heparin Per Pharmacy [facility] 07/24/25 In Process Protocol 04:56 Heparin Protocol [facility] 07/24/25 In Process 11:57 PTPTT LAB 07/24/25 Logged 19:00 Heparin Drip/D5w PHA 07/24/25 In Process 100units/Ml 13:[address] 07/24/25 Verified Contrast 11:52 Date of Service: Jul 24, 2025 Billing Provider: LAVONNE FERRER MD Common Visit Codes: [id number] CARE 30-74 MIN LAVONNE FERRER MD Jul 24, 2025 12:05
--- NOTE | 2025-07-24 12:06 | DVHPN2 ---
Subjective Seen and examined at bedside, abdominal pain improved. Will get CTA Chest to r/o PE. US Kidney showing complex cyst, need MRI to r/o Malignancy Changes from previous H/P or p: No Changes Eyes: No Pain, No Vision change, No Conjunctivae inflammation, No Eyelid inflammation, No Other, No Redness ENT: No Ear pain, No Ear discharge, No Nose pain, No Nose discharge, No Nose congestion, No Mouth pain, No Mouth swelling, No Throat pain, No Throat swelling, No Other Cardiovascular: No Chest Pain, No Palpitations, No Orthopnea, No Paroxysmal Noc. Dyspnea, No Edema, No Lt Headedness, No Other Respiratory: No Cough, No Dry, No Shortness of breath, No SOB with excertion, No Wheezing, No Hemoptysis, No Pleuritic Pain, No Sputum, No Other Gastrointestinal: Abdominal Pain; No Diarrhea, No Constipation, No Melena, No Hematochezia, No Other Genitourinary: No Dysuria, No Frequency, No Incontinence, No Hematuria, No Retention, No Other Musculoskeletal: No other, No neck pain, No shoulder pain, No arm pain, No back pain, No hand pain, No leg pain, No foot pain Skin: No Rash, No Lesions, No Jaundice, No Bruising, No Other Objective Vitals Vital Signs Date Time Temp Pulse Resp B/P (MAP) Pulse Ox O2 Delivery O2 Flow Rate FiO2 07/24/25 09:52 100 Nasal Cannula* 2 28 07/24/25 09:00 98.6 83 18 172/80 (110) 98.6 Intake/Output Intake and Output 07/24/25 07:00 Intake Total 990 ml Balance 990 ml Intake Oral 0 ml IV Total 990 ml Exam Gen: in NAD Cvs: N S1/S2 Resp: Diminished Abd: Distended, tender [employer]: AAO x 4 Medications Current Medications Medications Dose Ordered Sig/Alexa Route Start Time Stop Time Status Last Admin Dose Admin Piperacillin Sod/ Tazobactam Sod 100 ml @ 25 mls/hr Q8HR IV 07/23/25 06:00 07/24/25 06:09 25 MLS/HR Albuterol 2.5 mg Q4HPRN PRN NEB 07/23/25 00:45 Ipratropium [place] 0.5 mg Q4HPRN PRN NEB 07/23/25 00:45 Ondansetron HCl 4 mg Q4HPRN PRN IV 07/23/25 10:30 UNV Hydralazine HCl 10 mg Q6HPRN PRN IV 07/23/25 10:45 07/23/25 21:06 10 MG Ondansetron HCl 4 mg Q6HPRN PRN IV 07/23/25 10:45 07/23/25 23:46 4 MG Hydromorphone HCl 0.5 mg Q2HPRN PRN IV 07/23/25 12:00 07/24/25 08:05 0.5 MG Metronidazole 100 ml @ 100 mls/hr Q8HR IV 07/23/25 14:00 07/24/25 05:09 100 MLS/HR Potassium Chloride 100 ml @ 50 mls/hr Q2H IV 07/24/25 10:00 07/24/25 13:59 Potassium Chloride/Sodium Chloride 1,000 ml @ 75 mls/hr [id number] IV 07/24/25 10:45 Hold Heparin Sodium/ Dextrose 250 ml @ 10 mls/hr Q24H IV 07/24/25 13:00 Laboratory Results Laboratory Tests 07/24/25 03:16 Chemistry Test 07/24/25 03:16 Calcium Level 9.5 mg/dL (8.7-10.4) Coagulation Test 07/23/25 12:21 07/24/25 03:16 07/24/25 10:50 Prothrombin Time 10.7 sec (9.3-11.8) 11.0 sec (9.3-11.8) 11.3 sec (9.3-11.8) Prothrombin Time INR 1.01 (0.9-1.15) 1.04 (0.9-1.15) 1.07 (0.9-1.15) Activated Partial Thromboplast Time 27.3 SEC (24.5-34.5) 80.5 SEC (24.5-34.5) *H 102.4 SEC (24.5-34.5) *H Urinalysis Test 07/22/25 22:40 07/24/25 00:31 Urine Hyaline Casts Few /lpf (0 - 2) Urine Mucus Few (None Seen) Urine Osmolality 554 mOsm/kg Urine Color Yellow (Yellow) Urine Clarity Clear (Clear) Urine pH 5.5 (5.0-9.0) Urine Specific [place] 1.035 (1.001-1.035) Urine Protein Trace (Negative) H Urine Ketones Trace (Negative) Urine Blood Negative /uL (Negative) Urine Nitrite Negative (Negative) Urine Bilirubin Negative (Negative) Urine Urobilinogen Normal mg/dL (Negative) Urine Leukocyte Esterase Negative /uL (Negative) Urine RBC 1 /hpf (0 - 4) Urine Microscopic WBC 2 /HPF (0-5) Urine Squamous Epithelial Cells Few /hpf (<5) Urine Bacteria None seen /hpf (None Seen) Urine Creatinine 135.24 mg/dL (30.0-125.0) H Urine Protein/Creatinine Ratio 0.60 Urine Sodium 28 mmol/L (40-220) L Urine Glucose Normal mg/dL (Normal) Urine Total Protein 81.2 mg/dL (1-14) H Microbiology Microbiology Date/Time Source Procedure Growth Status 07/23/25 02:42 Blood Blood Culture - Preliminary NO GROWTH AFTER 24 HOURS OF INCUBATION. Resulted Assessment/Plan Assessment/Plan # Sepsis due to Terminal Ileitis vs Acute Cholecystitis - Abx - Surgical Cx # IBD? # Hypokalemia - Supplement # Possible PE?? - Heparin Drip - CTA Chest # Kidney Cyst, complex - Need outpatient MRI to r/o Malignancy Critical care time 45 mins Plan discussed with: Patient My Orders Orders - LAVONNE FERRER MD Procedure Category Date Status Time Heparin Per Pharmacy [facility] 07/23/25 In Process Protocol 19:30 Heparin Per Pharmacy [facility] 07/24/25 In Process Protocol 04:56 Heparin Protocol [facility] 07/24/25 In Process 11:57 PTPTT LAB 07/24/25 Logged 19:00 Heparin Drip/D5w PHA 07/24/25 In Process 100units/Ml 13:[address] 07/24/25 Verified Contrast 11:52 Date of Service: Jul 24, 2025 Billing Provider: LAVONNE FERRER MD Common Visit Codes: [id number] CARE 30-74 MIN LAVONNE FERRER MD Jul 24, 2025 12:06
--- NOTE | 2025-07-24 12:19 | DVHPN2 ---
Progress Note - Surgical Date Seen: Jul 24, 2025 Post op day Post op day: 0 Subjective Patient reports: Feels better (Patient reports feeling better, abdominal pain much improved, no nausea, no vomiting, feeling hungry, she is afebrile with vital signs stable, no bowel movement.) Review of Systems: Deferred Objective Vital signs Vital Sign Date Time Temp Pulse Resp B/P (MAP) Pulse Ox O2 Delivery O2 Flow Rate FiO2 07/24/25 09:52 100 Nasal Cannula* 2 28 07/24/25 09:00 98.6 83 18 172/80 (110) 98.6 Total Intake and Output 07/23/25 07/23/25 07/24/25 15:00 23:00 07:00 Intake Total 600 ml 200 ml 190 ml Balance 600 ml 200 ml 190 ml Medications Current Medications Medications Dose Ordered Sig/Alexa Route Start Time Stop Time Status Last Admin Dose Admin Piperacillin Sod/ Tazobactam Sod 100 ml @ 25 mls/hr Q8HR IV 07/23/25 06:00 07/24/25 06:09 25 MLS/HR Albuterol 2.5 mg Q4HPRN PRN NEB 07/23/25 00:45 Ipratropium [place] 0.5 mg Q4HPRN PRN NEB 07/23/25 00:45 Ondansetron HCl 4 mg Q4HPRN PRN IV 07/23/25 10:30 UNV Hydralazine HCl 10 mg Q6HPRN PRN IV 07/23/25 10:45 07/23/25 21:06 10 MG Ondansetron HCl 4 mg Q6HPRN PRN IV 07/23/25 10:45 07/23/25 23:46 4 MG Hydromorphone HCl 0.5 mg Q2HPRN PRN IV 07/23/25 12:00 07/24/25 08:05 0.5 MG Metronidazole 100 ml @ 100 mls/hr Q8HR IV 07/23/25 14:00 07/24/25 05:09 100 MLS/HR Potassium Chloride 100 ml @ 50 mls/hr Q2H IV 07/24/25 10:00 07/24/25 13:59 Potassium Chloride/Sodium Chloride 1,000 ml @ 75 mls/hr [id number] IV 07/24/25 10:45 Hold Heparin Sodium/ Dextrose 250 ml @ 10 mls/hr Q24H IV 07/24/25 13:00 Laboratory Laboratory Tests 07/24/25 03:16 Test 07/24/25 03:16 Range/Units Serum Glucose 92 74-106 mg/dL Microbiology Date/Time Source Procedure Growth Status 07/23/25 02:42 Blood Blood Culture - Preliminary NO GROWTH AFTER 24 HOURS OF INCUBATION. Resulted Examination: GENERAL:Normal, ABDOMEN:Normal (Mild distention, previous surgical scars well healed, soft, depressible, mild right lower quadrant tenderness (much improved), no rebound, no guarding), ABDOMEN:Abnormal Labs and/or images reviewed: Labs reviewed by me (Leukocytosis down trending) Problem List/Assessment/Plan Problems: (1) Terminal ileitis Assessment and Plan Mrs. Hewitt is a 84-year-old female who presented yesterday with terminal ileitis seen on CT. This all started this past Sunday and pain kept on getting worse until she had to come to the ED. today she is feeling much better states that the pain has subsided a lot and she is hungry and wants to eat. No bowel movement reported. Leukocytosis is down trending and lactate normalized yesterday. Since arrival to the hospital patient has been on IV Zosyn and metronidazole. Her condition is improving, we will continue to monitor, recommend continuation of IV antibiotics and bowel rest for 1 more day. Advise against the use of any GI cathartic medications, okay for stool softeners. 1. Continue bowel rest, NPO except for ice chips (for comfort) 2. Continue with IV antibiotics 3. Avoid GI cathartic medications, softeners are okay 4. Out of bed and ambulate Plan discussed with Plan discussed with: Patient Visit Coding Surgery Date of Service if different f: Jul 24, 2025 Billing Provider: MARTA HERNANDEZ MD Surgery Visit Codes: [id number] INP/OBS CARE(HIGH) MARTA HERNANDEZ MD Jul 24, 2025 12:19
[2025-07-24] MEDS: PANTOPRAZOLE 40 MG/10 ML VIAL INJ IV SCH (16:34)
[2025-07-24] MEDS: IOHEXOL 350 MG/ML 100ML IJ ONE (16:35)
--- NOTE | 2025-07-24 16:57 | DVH ---
Indication: PE Technique: CT axial images of the chest are obtained with intravenous contrast per CT angiogram prot ocol. Coronal and sagittal reformats were obtained. Radiation Dose Information: CTDI volume is 18.2 mGy. Dose-length product is 620 mGy*cm Comparison: CT abdomen pelvis from 07/22/2025 FINDINGS: No filling defect within the main left and right pulmonary arteries. Trachea patent. No pneumothorax. Bilateral atelectasis. No pulmonary airspace consolidation. Pulmon lillian emphysematous changes. Heart normal in size. Coronary artery calcification disease. Aortic atherosclerotic disease. No sup raclavicular or axillary lymphadenopathy. Upper abdomenm demonstrates gastric distention. There are loops of dilated small bowel up to 5.2 cm w ithin the visualized portion of the upper abdomen. Upper abdominal ascites fluid. Mesenteric edema. G allbladder distention. There is a left renal cyst with calcification measuring 2 cm. Median sternotomy wires. Moderate thoracic degenerative disc disease. IMPRESSION: No evidence for large pulmonary embolism. The visualized portions of the upper abdomen demonstrates gastric distention and air-fluid levels wit hin the small bowel with abnormal dilatation up to 5.2 cm concerning for small bowel obstruction/wors ening ileus. Recommend surgical consultation for further management. Small amount of ascites fluid seen within the upper abdomen. Coronary artery calcification disease. Aortic atherosclerotic disease. Pulmonary emphysematous changes. Other findings as described.
--- NOTE | 2025-07-24 20:04 | DVH ---
CHEST RADIOGRAPH Indication: ng tube placement Technique: Single frontal view of the chest was obtained Comparison: XY CHEST XRAY 1 VIEW on DOS: 07/23/25, XY CHEST TWO VIEWS ROUTINE on DOS: 05/18/25, CXR2 on DOS: 12/02/22 FINDINGS/IMPRESSION: Evaluation of the nasogastric tube throughout its course is difficult due to ove rlapping lines and technique, a repeat examination is suggested to ensure appropriate tube placement. The lungs are clear. Unchanged cardiomediastinal silhouette. No pleural effusion or pneumothorax. U nchanged osseous structures. Redemonstrated median sternotomy changes. Dilated loops of bowel are se en within the abdomen.
--- NOTE | 2025-07-24 21:52 | DVH ---
CHEST RADIOGRAPH Indication: ng tube placement Technique: 1 view Comparison: XY CHEST XRAY 1 VIEW on DOS: 07/24/25, XY CHEST XRAY 1 VIEW on DOS: 07/23/25 FINDINGS: Lines and Tubes: Enteric tube side port and tip terminate over stomach gas. Lungs/Pleura: No focal consolidation, pleural effusion or pneumothorax. Mild basilar scarring/atelect asis. Cardiomediastinum: Unremarkable. Other: Sternotomy wires. IMPRESSION: 1. Adequately positioned enteric tube. No acute cardiopulmonary abnormality.
[2025-07-25] VITALS (10 sets, daily range): BP systolic 147–183; BP diastolic 66–96; PULSE 68–83; RESP 15–18; TEMP 97.4–99; O2SAT 97–100
[2025-07-25] MEDS: PIPERACILLIN-TAZOB 3.375GM 100 ML IV ONE (00:47)
[2025-07-25] MEDS: PIPERACILLIN-TAZOB 3.375GM 100 ML IV SCH (06:25)
--- NOTE | 2025-07-25 09:18 | DVHPN2 ---
Progress Note Date Seen: Jul 25, 2025 Medical Necessity Reason Pt with a Central, PICC or Fol: Yes The following are medically ne: Pimentel Catheter Subjective Patient reports: No new complaints Other Systems: Patient seen and examined by myself today in follow-up Objective vital signs Vital Sign Date Time Temp Pulse Resp B/P (MAP) Pulse Ox O2 Delivery O2 Flow Rate FiO2 07/25/25 05:00 97.7 82 18 176/96 (122) 99 97.7 07/24/25 20:00 Nasal Cannula* 3 32 Total Intake and Output 07/24/25 07/24/25 07/25/25 15:00 23:00 07:00 Intake Total 100 ml 200 ml 100 ml Output Total 2000 ml 200 ml Balance 100 ml -1800 ml -100 ml medications Current Medications Medications Dose Ordered Sig/Alexa Route Start Time Stop Time Status Last Admin Dose Admin Albuterol 2.5 mg Q4HPRN PRN NEB 07/23/25 00:45 Ipratropium [place] 0.5 mg Q4HPRN PRN NEB 07/23/25 00:45 Ondansetron HCl 4 mg Q4HPRN PRN IV 07/23/25 10:30 UNV Hydralazine HCl 10 mg Q6HPRN PRN IV 07/23/25 10:45 07/23/25 21:06 10 MG Ondansetron HCl 4 mg Q6HPRN PRN IV 07/23/25 10:45 07/23/25 23:46 4 MG Hydromorphone HCl 0.5 mg Q2HPRN PRN IV 07/23/25 12:00 07/24/25 15:39 0.5 MG Metronidazole 100 ml @ 100 mls/hr Q8HR IV 07/23/25 14:00 07/25/25 05:04 100 MLS/HR Potassium Chloride/Sodium Chloride 1,000 ml @ 75 mls/hr [id number] IV 07/24/25 10:45 Cancel Pantoprazole Sodium 40 mg BID IV 07/24/25 14:15 07/24/25 21:33 40 MG Piperacillin Sod/ Tazobactam Sod 100 ml @ 25 mls/hr Q8HR IV 07/25/25 06:00 07/25/25 06:25 25 MLS/HR Examination: LUNGS:Normal, CVS:Normal, MSK:Normal laboratory and microbiology Laboratory Tests 07/24/25 03:16 Test 07/24/25 03:16 Range/Units Serum Glucose 92 74-106 mg/dL Microbiology Date/Time Source Procedure Growth Status 07/23/25 02:42 Blood Blood Culture - Preliminary NO GROWTH AFTER 48 HOURS OF INCUBATION. Resulted Problem List/Assessment/Plan Problem List/Assessment/Plan Acute kidney injury superimposed Chronic Kidney Disease secondary hemodynamic mediated, FeNa <1% Dehydration Terminal ileitis Hyponatremia due to dehydration Hypokalemia due to potassium depletion Sepsis Hypertension Anemia of chronic kidney disease Mild proteinuria Complex left kidney lesion 2.1 cm Recommendations Kidney function is improving Increased urine output Hyponatremia appropriately resolving Strict I&Os Check kidney ultrasound IVF NS with 40 mEq KCL at 75 cc/hour Avoid rapid correction of hyponatremia KCL replacement IV antibiotics GI consult Urology consult We will continue to follow Plan discussed with: Patient My Orders My Orders Orders - SUSAN CLINE MD Procedure Category Date Status Time Kidney US 07/24/25 Resulted 10:44 SUSAN CLINE MD Jul 25, 2025 09:18
--- NOTE | 2025-07-25 09:26 | DVHPNRES ---
Progress Note Date Seen: Jul 25, 2025 Resident Creating Document: SUSAN FLYNN RESIDENT Medical Necessity Reason Pt with a Central, PICC or Fol: Yes The following are medically ne: Pimentel Catheter Subjective Review of Systems Patient seen and examined at bedside, patient is feeling little better, Since arrival to the hospital patient has been on IV Zosyn and metronidazole. Her condition continues to improve. NG tube in place. Objective vital signs Vital Sign Date Time Temp Pulse Resp B/P (MAP) Pulse Ox O2 Delivery O2 Flow Rate FiO2 07/25/25 09:00 98.0 74 15 183/96 (125) 100 98.0 07/24/25 20:00 Nasal Cannula* 3 32 Total Intake and Output 07/24/25 07/24/25 07/25/25 15:00 23:00 07:00 Intake Total 100 ml 200 ml 100 ml Output Total 2000 ml 200 ml Balance 100 ml -1800 ml -100 ml medications Current Medications Medications Dose Ordered Sig/Alexa Route Start Time Stop Time Status Last Admin Dose Admin Albuterol 2.5 mg Q4HPRN PRN NEB 07/23/25 00:45 Ipratropium [place] 0.5 mg Q4HPRN PRN NEB 07/23/25 00:45 Ondansetron HCl 4 mg Q4HPRN PRN IV 07/23/25 10:30 UNV Hydralazine HCl 10 mg Q6HPRN PRN IV 07/23/25 10:45 07/23/25 21:06 10 MG Ondansetron HCl 4 mg Q6HPRN PRN IV 07/23/25 10:45 07/23/25 23:46 4 MG Hydromorphone HCl 0.5 mg Q2HPRN PRN IV 07/23/25 12:00 07/24/25 15:39 0.5 MG Metronidazole 100 ml @ 100 mls/hr Q8HR IV 07/23/25 14:00 07/25/25 05:04 100 MLS/HR Potassium Chloride/Sodium Chloride 1,000 ml @ 75 mls/hr [id number] IV 07/24/25 10:45 Cancel Pantoprazole Sodium 40 mg BID IV 07/24/25 14:15 07/24/25 21:33 40 MG Piperacillin Sod/ Tazobactam Sod 100 ml @ 25 mls/hr Q8HR IV 07/25/25 06:00 07/25/25 06:25 25 MLS/HR Examination GENERAL: Not in acute distress. HEENT: EOMI, Moist mucous membranes. No scleral icterus. No cervical lymphadenopathy. Nasogastric tube in place LUNGS: Clear to auscultation bilaterally. No accessory muscle use. CARDIOVASCULAR: Regular rate and rhythm. No murmur. No JVD. ABDOMEN: Nondistended, mild tenderness EXTREMITIES: No edema. Nontender. SKIN: No rashes or lesions. Warm. NEUROLOGIC: Alert and oriented X3 laboratory and microbiology Laboratory Tests 07/24/25 03:16 Test 07/24/25 03:16 Range/Units Serum Glucose 92 74-106 mg/dL Microbiology Date/Time Source Procedure Growth Status 07/23/25 02:42 Blood Blood Culture - Preliminary NO GROWTH AFTER 48 HOURS OF INCUBATION. Resulted Problem List/Assessment/Plan Problem List/Assessment/Plan # sepsis due to terminal ileitis # lactic acidosis # ?Small bowel obstruction # IBD? -iv fluids -IV zosym -lactic acid -blood culture # terminal ileitis? Inflammation? Infection? Ischemia -CT abd pelvis -iv fluids -IV zosyn and flagyl -lactic acid - NPO - GI consult - surgeon consult: Recommened: Continue bowel rest, NPO except for ice chips and Continue NG tube decompression. 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 -seen on CT -consider cardiology and surgical consultation # hypokalemia -corrected -monitor # Acute kidney injury superimposed Chronic Kidney Disease secondary hemodynamic mediated, FeNa <1%. # Complex left kidney lesion 2.1 cm -IV fluids -Kidney function is improving -monitor -nephrology on board # normocytic anemia # Anemia of chronic kidney disease -monitor #COPD -on 2l -ipratropium and albuterol PRN #Dyslipidemia #Chronic back pain # Hypokalemia - replenished # hyponatremia - monitor lab Goal of care discussed with patient for 16 minutes: Full code Discussed with Dr. Niño Plan discussed with: Patient My Orders My Orders Orders - SUSAN FLYNN Procedure Category Date Status Time Potassium Chl PHA 07/25/25 In Process 20meq/100ml 07:30 SUSAN FLYNN RESIDENT Jul 25, 2025 09:26
--- NOTE | 2025-07-25 11:03 | DVHPN2 ---
Progress Note - Surgical Date Seen: Jul 25, 2025 Post op day Post op day: 0 Subjective Patient reports: Feels better (Patient had some vomiting last night, and NG tube was placed, patient is feeling better this morning, ambulated yesterday, no bowel movements yet during the hospital stay, afebrile with vital signs stable.) Review of Systems: Deferred Objective Vital signs Vital Sign Date Time Temp Pulse Resp B/P (MAP) Pulse Ox O2 Delivery O2 Flow Rate FiO2 07/25/25 09:55 66 18 171/93 07/25/25 09:00 98.0 100 98.0 07/24/25 20:00 Nasal Cannula* 3 32 Total Intake and Output 07/24/25 07/24/25 07/25/25 15:00 23:00 07:00 Intake Total 100 ml 200 ml 100 ml Output Total 2000 ml 200 ml Balance 100 ml -1800 ml -100 ml Medications Current Medications Medications Dose Ordered Sig/Alexa Route Start Time Stop Time Status Last Admin Dose Admin Albuterol 2.5 mg Q4HPRN PRN NEB 07/23/25 00:45 Ipratropium [place] 0.5 mg Q4HPRN PRN NEB 07/23/25 00:45 Ondansetron HCl 4 mg Q4HPRN PRN IV 07/23/25 10:30 UNV Hydralazine HCl 10 mg Q6HPRN PRN IV 07/23/25 10:45 07/23/25 21:06 10 MG Ondansetron HCl 4 mg Q6HPRN PRN IV 07/23/25 10:45 07/23/25 23:46 4 MG Hydromorphone HCl 0.5 mg Q2HPRN PRN IV 07/23/25 12:00 07/25/25 09:55 0.5 MG Metronidazole 100 ml @ 100 mls/hr Q8HR IV 07/23/25 14:00 07/25/25 05:04 100 MLS/HR Potassium Chloride/Sodium Chloride 1,000 ml @ 75 mls/hr [id number] IV 07/24/25 10:45 Cancel Pantoprazole Sodium 40 mg BID IV 07/24/25 14:15 07/24/25 21:33 40 MG Piperacillin Sod/ Tazobactam Sod 100 ml @ 25 mls/hr Q8HR IV 07/25/25 06:00 07/25/25 06:25 25 MLS/HR Laboratory Laboratory Tests 07/24/25 03:16 Test 07/24/25 03:16 Range/Units Serum Glucose 92 74-106 mg/dL Microbiology Date/Time Source Procedure Growth Status 07/23/25 02:42 Blood Blood Culture - Preliminary NO GROWTH AFTER 48 HOURS OF INCUBATION. Resulted Examination: GENERAL:Normal, HEENT:Normal (NG tube in place, approximately 600- 700 mL output since placement, bilious), ABDOMEN:Normal (Previous surgical scars well healed, nondistended, nontender) Problem List/Assessment/Plan Assessment and Plan Mrs. Hewitt is a 84-year-old female who presented yesterday with terminal ileitis seen on CT. This all started this past Sunday and pain kept on getting worse until she had to come to the ED. today she is feeling much better states that the pain has subsided a lot and she is hungry and wants to eat. No bowel movement reported. Since arrival to the hospital patient has been on IV Zosyn and metronidazole. Her condition continues to improve, although she had a minor setback with some vomiting yesterday, NG tube was placed, approximately 600-700 mL of bilious output since placement, since this aims nursing shift started she has only had 100 mL of output. Will continue to monitor, recommend continuation of IV antibiotics and bowel rest. Advise against the use of any GI cathartic medications, okay for stool softeners. 1. Continue bowel rest, NPO except for ice chips (for comfort) 2. Continue with IV antibiotics 3. Avoid GI cathartic medications, softeners are okay 4. Out of bed and ambulate 5. Continue NG tube decompression My Orders My Orders Orders - MARTA HERNANDEZ MD Procedure Category Date Status Time Complete Blood Count LAB 07/25/25 Logged 09:52 Comprehensive LAB 07/25/25 Logged Metabolic Panel 09:52 Complete Blood Count LAB 07/26/25 Verified 04:00 Comprehensive LAB 07/26/25 Verified Metabolic Panel 04:00 Lactic Acid W/ Reflex LAB 07/25/25 Logged Order 09:56 Plan discussed with Plan discussed with: Patient Visit Coding Surgery Date of Service if different f: Jul 25, 2025 Billing Provider: MARTA HERNANDEZ MD Surgery Visit Codes: [id number] INP/OBS CARE(HIGH) MARTA HERNANDEZ MD Jul 25, 2025 11:03
[2025-07-25 11:15] LABS: Hematocrit 28.5 % (36.0-46.0); Hemoglobin 9.3 g/dL (12.2-16.2); Mean Corpuscular Hemoglobin 27.5 pg (28.0-32.0); Mean Corpuscular Volume 84.3 fL (80.0-100.0)
[2025-07-25 11:25] LABS: Albumin 3.7 g/dL (3.2-4.8); Alkaline Phosphatase 52 U/L (46-116); Anion Gap 10 (5-15); BUN/Creatinine Ratio 15.3 (10.0-20.0); Blood Urea Nitrogen 15 mg/dL (9-23); Calcium 9.1 mg/dL (8.7-10.4); Carbon Dioxide 28 mmol/L (20-31); Glucose 95 mg/dL (74-106); Total Protein 6.3 g/dL (5.7-8.2)
[2025-07-25 11:26] LABS: Alanine Aminotransferase 9 U/L (7-40); Bilirubin, Total 0.5 mg/dL (0.2-1.0); Chloride 93 mmol/L (98-107); Potassium 3.2 mmol/L (3.5-5.1); Sodium 131 mmol/L (136-145)
[2025-07-25 11:47] LABS: Total Cells Counted 100.0 (100)
[2025-07-25] MEDS: POTASSIUM CHL 20MEQ/100ML 100 ML IV ONE (13:01)
--- NOTE | 2025-07-25 15:33 | DVHPN2 ---
Progress Note - Dictate Date Seen: Jul 25, 2025 Medical Necessity Reason Pt with a Central, PICC or Fol: Yes The following are medically ne: Pimentel Catheter Subjective Patient had some vomiting last night, and NG tube was placed, patient is feeling better this morning, ambulated yesterday, Patient passed some gas yesterday but has not had a bowel movement yet Abdominal pain and distention have improved vital signs Vital Sign Date Time Temp Pulse Resp B/P (MAP) Pulse Ox O2 Delivery O2 Flow Rate FiO2 07/25/25 13:30 83 160/66 (97) 07/25/25 13:00 97.4 17 100 97.4 07/25/25 10:00 Nasal Cannula 2.0 07/25/25 10:00 32 Total Intake and Output 07/24/25 07/24/25 07/25/25 15:00 23:00 07:00 Intake Total 100 ml 200 ml 100 ml Output Total 2000 ml 200 ml Balance 100 ml -1800 ml -100 ml medications Current Medications Medications Dose Ordered Sig/Alexa Route Start Time Stop Time Status Last Admin Dose Admin Albuterol 2.5 mg Q4HPRN PRN NEB 07/23/25 00:45 Ipratropium [place] 0.5 mg Q4HPRN PRN NEB 07/23/25 00:45 Ondansetron HCl 4 mg Q4HPRN PRN IV 07/23/25 10:30 UNV Hydralazine HCl 10 mg Q6HPRN PRN IV 07/23/25 10:45 07/23/25 21:06 10 MG Ondansetron HCl 4 mg Q6HPRN PRN IV 07/23/25 10:45 07/23/25 23:46 4 MG Hydromorphone HCl 0.5 mg Q2HPRN PRN IV 07/23/25 12:00 07/25/25 09:55 0.5 MG Metronidazole 100 ml @ 100 mls/hr Q8HR IV 07/23/25 14:00 07/25/25 13:01 100 MLS/HR Potassium Chloride/Sodium Chloride 1,000 ml @ 75 mls/hr [id number] IV 07/24/25 10:45 Cancel Pantoprazole Sodium 40 mg BID IV 07/24/25 14:15 07/25/25 10:00 40 MG Piperacillin Sod/ Tazobactam Sod 100 ml @ 25 mls/hr Q8HR IV 07/25/25 06:00 07/25/25 06:25 25 MLS/HR objective GENERAL:Normal, HEENT:Normal (NG tube in place, approximately 600-700 mL output since placement, bilious), ABDOMEN:Normal (Previous surgical scars well healed, nondistended, nontender) laboratory and microbiology Laboratory Tests 07/25/25 10:50 Test 07/25/25 10:50 Range/Units Serum Glucose 95 74-106 mg/dL Problems(with codes): (1) Terminal ileitis (2) Cholelithiasis (3) Acute abdominal pain (4) Generalized weakness (5) Leukocytosis Prognosis Assessment plan Differential diagnosis of possible terminal ileitis or typhlitis related to eating food Possible partial small-bowel obstruction related to inflammatory changes or adhesions Consider Gastrografin small-bowel series in 48-72 hours Stool tests not obtained because of no bowel movement Continue NG tube to low intermittent suction, ambulate patient Monitor labs',keep NPO except for ice chips Awaiting IBD panel, continue IV antibiotics We will start IV Clinimix if prolonged fasting is anticipated Surgical consult following closely Dietary Evaluation Review Recommendations by RD: Dietary education by RD Comments: 1) If patient remains NPO > 7 days, consider EN/TPN to meet at least 75% of estimated daily needs 2) Advance to cardiac diet when medically feasible 3) Refer to outpatient RD for weight management 4) Follow-up with gastroenterology, cardiology, pulmonology, and nephrology 5) Continue to monitor I&O, labs, and skin integrity Expected Outcomes/Goals: 1) patient to receive nutritional support within 7 days of NPO status 2) labs to improve 3) diet to advance 4) f/u in 3-5 days Plan discussed with: Patient, Other (Nurse and Dr Garcia) RENEE LAWRENCE MD Jul 25, 2025 15:33
[2025-07-25] MEDS: POTASSIUM CHLORIDE 20 MEQ, LIDOCAINE 1% (LOCAL ANESTH.) 2 ML in SODIUM CHL 0.9% 100 ML IV ONE (16:00)
[2025-07-26] VITALS (12 sets, daily range): BP systolic 139–173; BP diastolic 70–85; PULSE 71–87; RESP 15–19; TEMP 97.8–98.6; O2SAT 98–100
[2025-07-26 06:17] LABS: Hematocrit 27.5 % (36.0-46.0); Hemoglobin 9.1 g/dL (12.2-16.2); Mean Corpuscular Hemoglobin 28.1 pg (28.0-32.0); Mean Corpuscular Volume 84.6 fL (80.0-100.0)
[2025-07-26 06:31] LABS: Alanine Aminotransferase 10 U/L (7-40); Alkaline Phosphatase 52 U/L (46-116); Anion Gap 12 (5-15); BUN/Creatinine Ratio 14.6 (10.0-20.0); Blood Urea Nitrogen 13 mg/dL (9-23); Calcium 9.0 mg/dL (8.7-10.4); Carbon Dioxide 28 mmol/L (20-31); Glucose 85 mg/dL (74-106); Total Protein 6.1 g/dL (5.7-8.2)
[2025-07-26 06:32] LABS: Albumin 3.6 g/dL (3.2-4.8); Bilirubin, Total 0.5 mg/dL (0.2-1.0); Chloride 94 mmol/L (98-107); Potassium 3.3 mmol/L (3.5-5.1); Sodium 134 mmol/L (136-145)
[2025-07-26 08:00] LABS: Total Cells Counted 100.0 (100)
--- NOTE | 2025-07-26 10:52 | DVHPN2 ---
Progress Note Date Seen: Jul 26, 2025 Medical Necessity Reason Pt with a Central, PICC or Fol: Yes The following are medically ne: Pimentel Catheter Subjective Patient reports: Feels worse Review of Systems: GI:Abnormal Other Systems: Patient seen and examined by myself today in follow-up Objective vital signs Vital Sign Date Time Temp Pulse Resp B/P (MAP) Pulse Ox O2 Delivery O2 Flow Rate FiO2 07/26/25 09:00 98.1 74 16 152/70 (97) 100 98.1 07/26/25 05:50 Nasal Cannula* 2 28 Total Intake and Output 07/25/25 07/25/25 07/26/25 15:00 23:00 07:00 Intake Total 200 ml 412 ml 200 ml Output Total 450 ml Balance 200 ml 412 ml -250 ml medications Current Medications Medications Dose Ordered Sig/Alexa Route Start Time Stop Time Status Last Admin Dose Admin Albuterol 2.5 mg Q4HPRN PRN NEB 07/23/25 00:45 Ipratropium [place] 0.5 mg Q4HPRN PRN NEB 07/23/25 00:45 Ondansetron HCl 4 mg Q4HPRN PRN IV 07/23/25 10:30 UNV Hydralazine HCl 10 mg Q6HPRN PRN IV 07/23/25 10:45 07/25/25 20:55 10 MG Ondansetron HCl 4 mg Q6HPRN PRN IV 07/23/25 10:45 07/23/25 23:46 4 MG Hydromorphone HCl 0.5 mg Q2HPRN PRN IV 07/23/25 12:00 07/26/25 05:06 0.5 MG Metronidazole 100 ml @ 100 mls/hr Q8HR IV 07/23/25 14:00 07/26/25 05:23 100 MLS/HR Potassium Chloride/Sodium Chloride 1,000 ml @ 75 mls/hr [id number] IV 07/24/25 10:45 Cancel Pantoprazole Sodium 40 mg BID IV 07/24/25 14:15 07/26/25 10:24 40 MG Piperacillin Sod/ Tazobactam Sod 100 ml @ 25 mls/hr Q8HR IV 07/25/25 06:00 07/26/25 06:39 25 MLS/HR Examination: LUNGS:Normal, CVS:Normal, MSK:Normal laboratory and microbiology Laboratory Tests 07/26/25 05:27 Test 07/26/25 05:27 Range/Units Serum Glucose 85 74-106 mg/dL Microbiology Date/Time Source Procedure Growth Status 07/23/25 02:42 Blood Blood Culture - Preliminary NO GROWTH AFTER 72 HOURS OF INCUBATION. Resulted Problem List/Assessment/Plan Problem List/Assessment/Plan Acute kidney injury superimposed Chronic Kidney Disease secondary hemodynamic mediated, FeNa <1% Dehydration Terminal ileitis Hyponatremia due to dehydration Hypokalemia due to potassium depletion Sepsis Hypertension Anemia of chronic kidney disease Mild proteinuria Complex left kidney lesion 2.1 cm Recommendations Kidney function is improving Increased urine output Hyponatremia appropriately resolving Strict I&Os Check kidney ultrasound IVF NS with 40 mEq KCL at 75 cc/hour Avoid rapid correction of hyponatremia KCL replacement IV antibiotics GI consult Urology consult We will continue to follow Plan discussed with: Patient Dietary Evaluation Review Recommendations by RD: Dietary education by RD Comments: 1) If patient remains NPO > 7 days, consider EN/TPN to meet at least 75% of estimated daily needs 2) Advance to cardiac diet when medically feasible 3) Refer to outpatient RD for weight management 4) Follow-up with gastroenterology, cardiology, pulmonology, and nephrology 5) Continue to monitor I&O, labs, and skin integrity Expected Outcomes/Goals: 1) patient to receive nutritional support within 7 days of NPO status 2) labs to improve 3) diet to advance 4) f/u in 3-5 days SUSAN CLINE MD Jul 26, 2025 10:51
--- NOTE | 2025-07-26 12:02 | DVHPN2 ---
Progress Note - Surgical Date Seen: Jul 26, 2025 Post op day Post op day: 0 Subjective Patient reports: Feels better (Patient feeling even better today, no abdominal pain, tolerating ice chips, NG tube with some output but she is taking a lot of ice chips (so measurements not accurate), afebrile with vital signs stable) Review of Systems: Deferred Objective Vital signs Vital Sign Date Time Temp Pulse Resp B/P (MAP) Pulse Ox O2 Delivery O2 Flow Rate FiO2 07/26/25 09:00 98.1 74 16 152/70 (97) 100 98.1 07/26/25 05:50 Nasal Cannula* 2 28 Total Intake and Output 07/25/25 07/25/25 07/26/25 15:00 23:00 07:00 Intake Total 200 ml 412 ml 200 ml Output Total 450 ml Balance 200 ml 412 ml -250 ml Medications Current Medications Medications Dose Ordered Sig/Alexa Route Start Time Stop Time Status Last Admin Dose Admin Albuterol 2.5 mg Q4HPRN PRN NEB 07/23/25 00:45 Ipratropium [place] 0.5 mg Q4HPRN PRN NEB 07/23/25 00:45 Ondansetron HCl 4 mg Q4HPRN PRN IV 07/23/25 10:30 UNV Hydralazine HCl 10 mg Q6HPRN PRN IV 07/23/25 10:45 07/25/25 20:55 10 MG Ondansetron HCl 4 mg Q6HPRN PRN IV 07/23/25 10:45 07/23/25 23:46 4 MG Hydromorphone HCl 0.5 mg Q2HPRN PRN IV 07/23/25 12:00 07/26/25 05:06 0.5 MG Metronidazole 100 ml @ 100 mls/hr Q8HR IV 07/23/25 14:00 07/26/25 05:23 100 MLS/HR Potassium Chloride/Sodium Chloride 1,000 ml @ 75 mls/hr [id number] IV 07/24/25 10:45 Cancel Pantoprazole Sodium 40 mg BID IV 07/24/25 14:15 07/26/25 10:24 40 MG Piperacillin Sod/ Tazobactam Sod 100 ml @ 25 mls/hr Q8HR IV 07/25/25 06:00 07/26/25 06:39 25 MLS/HR Potassium Chloride/Sodium Chloride 1,000 ml @ 75 mls/hr [id number] IV 07/26/25 11:00 Laboratory Laboratory Tests 07/26/25 05:27 Test 07/26/25 05:27 Range/Units Serum Glucose 85 74-106 mg/dL Microbiology Date/Time Source Procedure Growth Status 07/23/25 02:42 Blood Blood Culture - Preliminary NO GROWTH AFTER 72 HOURS OF INCUBATION. Resulted Examination: GENERAL:Normal, HEENT:Abnormal (NG tube in place), ABDOMEN:Normal (Nondistended, previous surgical scars well healed, soft, depressible, nontender) Problem List/Assessment/Plan Assessment and Plan Mrs. Hewitt is a 84-year-old female who presented yesterday with terminal ileitis seen on CT. Patient condition continues to improve. NG tube with minimal output, but she has been taking a lot of ice chips (output is not real). Patient is passing flatus but no bowel movement yet. No leukocytosis. I believe the patient could be advanced to sips of clears, leaving the NG tube in place but clamped, to assess toleration. Recommend 1. Trial of sips of clear, living NG tube in place to clamp setting 2. Continue with IV antibiotics 3. Suppository prn daily 4. Colace 100 mg b.i.d. 5. Advised against the use of oral cathartic medications Plan discussed with Plan discussed with: Patient Visit Coding Surgery Date of Service if different f: Jul 26, 2025 Billing Provider: MARTA HERNANDEZ MD Surgery Visit Codes: [id number] INP/OBS CARE(HIGH) MARTA HERNANDEZ MD Jul 26, 2025 12:02
--- NOTE | 2025-07-26 13:33 | DVHPN2 ---
Progress Note - Dictate Date Seen: Jul 26, 2025 Medical Necessity Reason Pt with a Central, PICC or Fol: Yes The following are medically ne: Pimentel Catheter Subjective Patient had NG tube was placed, patient is feeling better this morning, ambulated yesterday, Patient passed some gas yesterday but has not had a bowel movement yet Abdominal pain and distention have improved Patient is tolerating clear ice chips vital signs Vital Sign Date Time Temp Pulse Resp B/P (MAP) Pulse Ox O2 Delivery O2 Flow Rate FiO2 07/26/25 13:00 98.2 77 16 147/75 (99) 100 98.2 07/26/25 10:00 Nasal Cannula 2.0 07/26/25 10:00 28 Total Intake and Output 07/25/25 07/25/25 07/26/25 15:00 23:00 07:00 Intake Total 200 ml 412 ml 200 ml Output Total 450 ml Balance 200 ml 412 ml -250 ml medications Current Medications Medications Dose Ordered Sig/Alexa Route Start Time Stop Time Status Last Admin Dose Admin Albuterol 2.5 mg Q4HPRN PRN NEB 07/23/25 00:45 Ipratropium [place] 0.5 mg Q4HPRN PRN NEB 07/23/25 00:45 Ondansetron HCl 4 mg Q4HPRN PRN IV 07/23/25 10:30 UNV Hydralazine HCl 10 mg Q6HPRN PRN IV 07/23/25 10:45 07/25/25 20:55 10 MG Ondansetron HCl 4 mg Q6HPRN PRN IV 07/23/25 10:45 07/23/25 23:46 4 MG Hydromorphone HCl 0.5 mg Q2HPRN PRN IV 07/23/25 12:00 07/26/25 05:06 0.5 MG Metronidazole 100 ml @ 100 mls/hr Q8HR IV 07/23/25 14:00 07/26/25 05:23 100 MLS/HR Potassium Chloride/Sodium Chloride 1,000 ml @ 75 mls/hr [id number] IV 07/24/25 10:45 Cancel Pantoprazole Sodium 40 mg BID IV 07/24/25 14:15 07/26/25 10:24 40 MG Piperacillin Sod/ Tazobactam Sod 100 ml @ 25 mls/hr Q8HR IV 07/25/25 06:00 07/26/25 06:39 25 MLS/HR Potassium Chloride/Sodium Chloride 1,000 ml @ 75 mls/hr [id number] IV 07/26/25 11:00 Docusate Sodium 100 mg BIDPRN PRN PO 07/26/25 13:00 objective GENERAL:Normal, HEENT:Normal (NG tube in place, approximately 600-700 mL output since placement, bilious), ABDOMEN:Normal (Previous surgical scars well healed, nondistended, nontender) laboratory and microbiology Laboratory Tests 07/26/25 05:27 Test 07/26/25 05:27 Range/Units Serum Glucose 85 74-106 mg/dL Problems(with codes): (1) Generalized weakness (2) Terminal ileitis (3) Acute abdominal pain Prognosis Plan Continue IV antibiotics Surgical consult recommended initiation of clear liquid diet Repeat KUB NG tube to low intermittent suction If symptoms do not resolve consider Gastrografin small-bowel series Dietary Evaluation Review Recommendations by RD: Dietary education by RD Comments: 1) If patient remains NPO > 7 days, consider EN/TPN to meet at least 75% of estimated daily needs 2) Advance to cardiac diet when medically feasible 3) Refer to outpatient RD for weight management 4) Follow-up with gastroenterology, cardiology, pulmonology, and nephrology 5) Continue to monitor I&O, labs, and skin integrity Expected Outcomes/Goals: 1) patient to receive nutritional support within 7 days of NPO status 2) labs to improve 3) diet to advance 4) f/u in 3-5 days Plan discussed with: Patient RENEE LAWRENCE MD Jul 26, 2025 13:33
[2025-07-26] MEDS: SOD CHL 0.9%/ KCL 40MEQ 1,000 ML IV SCH (14:47)
[2025-07-26] MEDS ORDERED: PPN PER PHARMACY 0 ML IV SCH (15:00)
[2025-07-26] MEDS ORDERED: POTASSIUM CHL 20MEQ/100ML 100 ML IV ONE (16:30)
--- NOTE | 2025-07-26 16:50 | DVHPN2 ---
Subjective Patient seen and examined at bedside, patient is feeling little better, Reviewed: H&P Changes from previous H/P or p: No Changes General: Per HPI Eyes: No Pain, No Vision change, No Conjunctivae inflammation, No Eyelid inflammation, No Other, No Redness ENT: No Ear pain, No Ear discharge, No Nose pain, No Nose discharge, No Nose congestion, No Mouth pain, No Mouth swelling, No Throat pain, No Throat swelling, No Other Cardiovascular: No Chest Pain, No Palpitations, No Orthopnea, No Paroxysmal Noc. Dyspnea, No Edema, No Lt Headedness, No Other Respiratory: No Cough, No Dry, No Shortness of breath, No SOB with excertion, No Wheezing, No Hemoptysis, No Pleuritic Pain, No Sputum, No Other Gastrointestinal: Abdominal Pain; No Diarrhea, No Constipation, No Melena, No Hematochezia, No Other Genitourinary: No Dysuria, No Frequency, No Incontinence, No Hematuria, No Retention, No Other Musculoskeletal: No other, No neck pain, No shoulder pain, No arm pain, No back pain, No hand pain, No leg pain, No foot pain Skin: No Rash, No Lesions, No Jaundice, No Bruising, No Other Objective Vitals Vital Signs Date Time Temp Pulse Resp B/P (MAP) Pulse Ox O2 Delivery O2 Flow Rate FiO2 07/26/25 13:00 98.2 77 16 147/75 (99) 100 98.2 07/26/25 10:00 Nasal Cannula 2.0 07/26/25 10:00 28 Intake/Output Intake and Output 07/26/25 07:00 Intake Total 812 ml Output Total 450 ml Balance 362 ml Intake Oral 0 ml IV Total 812 ml Output Urine Total 450 ml Exam GENERAL: Not in acute distress. HEENT: EOMI, Moist mucous membranes. No scleral icterus. No cervical lymphadenopathy. Nasogastric tube in place LUNGS: Clear to auscultation bilaterally. No accessory muscle use. CARDIOVASCULAR: Regular rate and rhythm. No murmur. No JVD. ABDOMEN: Nondistended, mild tenderness EXTREMITIES: No edema. Nontender. SKIN: No rashes or lesions. Warm. NEUROLOGIC: Alert and oriented X3 Medications Current Medications Medications Dose Ordered Sig/Alexa Route Start Time Stop Time Status Last Admin Dose Admin Albuterol 2.5 mg Q4HPRN PRN NEB 07/23/25 00:45 Ipratropium [place] 0.5 mg Q4HPRN PRN NEB 07/23/25 00:45 Ondansetron HCl 4 mg Q4HPRN PRN IV 07/23/25 10:30 UNV Hydralazine HCl 10 mg Q6HPRN PRN IV 07/23/25 10:45 07/25/25 20:55 10 MG Ondansetron HCl 4 mg Q6HPRN PRN IV 07/23/25 10:45 07/23/25 23:46 4 MG Hydromorphone HCl 0.5 mg Q2HPRN PRN IV 07/23/25 12:00 07/26/25 05:06 0.5 MG Metronidazole 100 ml @ 100 mls/hr Q8HR IV 07/23/25 14:00 07/26/25 14:47 100 MLS/HR Potassium Chloride/Sodium Chloride 1,000 ml @ 75 mls/hr [id number] IV 07/24/25 10:45 Cancel Pantoprazole Sodium 40 mg BID IV 07/24/25 14:15 07/26/25 10:24 40 MG Piperacillin Sod/ Tazobactam Sod 100 ml @ 25 mls/hr Q8HR IV 07/25/25 06:00 07/26/25 16:29 25 MLS/HR Potassium Chloride/Sodium Chloride 1,000 ml @ 75 mls/hr [id number] IV 07/26/25 11:00 07/26/25 14:47 75 MLS/HR Docusate Sodium 100 mg BIDPRN PRN PO 07/26/25 13:00 Amino Acids 0 ml @ 0 mls/hr PER PHARMACY IV 07/26/25 15:00 Amino Acids/ Electrolytes/ Dextrose 1,000 ml @ 41 mls/hr DAILY@2200 IV 07/26/25 22:00 Diagnostic Test (Pha) 1 strip Q6HR 07/27/25 00:00 Insulin Human Regular FOLLOW SLIDING SCALE Q6HR SC 07/27/25 00:00 Dextrose 50 ml UD IV 07/26/25 22:00 Laboratory Results Laboratory Tests 07/26/25 05:27 Chemistry Test 07/26/25 05:27 Albumin 3.6 g/dL (3.2-4.8) Calcium Level 9.0 mg/dL (8.7-10.4) Total Protein 6.1 g/dL (5.7-8.2) LFT Test 07/26/25 05:27 Alanine Aminotransferase (ALT) 10 U/L (7-40) Alkaline Phosphatase 52 U/L (46-116) Aspartate Amino Transferase (AST) 23 U/L (13-40) Total Bilirubin 0.5 mg/dL (0.2-1.0) Urinalysis Test 07/22/25 22:40 07/24/25 00:31 Urine Hyaline Casts Few /lpf (0 - 2) Urine Mucus Few (None Seen) Urine Osmolality 554 mOsm/kg Urine Color Yellow (Yellow) Urine Clarity Clear (Clear) Urine pH 5.5 (5.0-9.0) Urine Specific [place] 1.035 (1.001-1.035) Urine Protein Trace (Negative) H Urine Ketones Trace (Negative) Urine Blood Negative /uL (Negative) Urine Nitrite Negative (Negative) Urine Bilirubin Negative (Negative) Urine Urobilinogen Normal mg/dL (Negative) Urine Leukocyte Esterase Negative /uL (Negative) Urine RBC 1 /hpf (0 - 4) Urine Microscopic WBC 2 /HPF (0-5) Urine Squamous Epithelial Cells Few /hpf (<5) Urine Bacteria None seen /hpf (None Seen) Urine Creatinine 135.24 mg/dL (30.0-125.0) H Urine Protein/Creatinine Ratio 0.60 Urine Sodium 28 mmol/L (40-220) L Urine Glucose Normal mg/dL (Normal) Urine Total Protein 81.2 mg/dL (1-14) H Microbiology Microbiology Date/Time Source Procedure Growth Status 07/23/25 02:42 Blood Blood Culture - Preliminary NO GROWTH AFTER 72 HOURS OF INCUBATION. Resulted Labs and/or images reviewed: Labs reviewed by me, Image(s) reviewed by me Assessment/Plan Assessment/Plan 07/26 - trial ice chips with clamp ng tube. appreciate surgical recommendations # sepsis due to terminal ileitis # lactic acidosis # ?Small bowel obstruction # IBD? -iv fluids -IV zosym -lactic acid -blood culture # terminal ileitis? Inflammation? Infection? Ischemia -CT abd pelvis -iv fluids -IV zosyn and flagyl -lactic acid - NPO - GI consult - surgeon consult: Recommened: Continue bowel rest, NPO except for ice chips and Continue NG tube decompression. 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 -seen on CT -consider cardiology and surgical consultation # hypokalemia -corrected -monitor # Acute kidney injury superimposed Chronic Kidney Disease secondary hemodynamic mediated, FeNa <1%. # Complex left kidney lesion 2.1 cm -IV fluids -Kidney function is improving -monitor -nephrology on board # normocytic anemia # Anemia of chronic kidney disease -monitor #COPD -on 4L -ipratropium and albuterol PRN #Dyslipidemia #Chronic back pain # Hypokalemia - replenished # hyponatremia - monitor lab Plan discussed with: Patient My Orders Orders - PERCY HIDALGO MD Procedure Category Date Status Time Ppn Per Pharmacy PHA 07/26/25 In Process 15:00 Amino Acid Infusion PHA 07/26/25 In Process In D10w (Clinimix 4. 22:00 Glucose Blood PHA 07/27/25 In Process (Accu-Chek Comfort 00:00 Insulin R (Human) PHA 07/27/25 In Process (Insulin R) 00:00 Dextrose 50% Syringe PHA 07/26/25 In Process 22:00 Comprehensive LAB 07/27/25 Verified Metabolic Panel 05:00 Phosphorus LAB 07/27/25 Verified 05:00 Magnesium LAB 07/27/25 Verified 05:00 Triglycerides LAB 07/27/25 Verified 05:00 Ppn Per Pharmacy [facility] 07/26/25 In Process 22:00 Potassium Chl PHA 07/26/25 In Process 20meq/100ml 16:30 Date of Service: Jul 26, 2025 Billing Provider: PERCY HIDALGO MD Common Visit Codes: [id number] INP/OBS CARE(HIGH) PERCY HIDALGO MD Jul 26, 2025 16:50
--- NOTE | 2025-07-26 16:57 | DVH ---
EXAM: XY KUB ABDOMEN SINGLE VIEW HISTORY: ileus vs sbo COMPARISON: XY KUB ABDOMEN SINGLE VIEW on DOS: 07/23/25 TECHNIQUE: Supine view of the abdomen FINDINGS/IMPRESSION: Proximal small bowel loops measuring up to 4.3 cm.
[2025-07-26] MEDS: BISACODYL 10 MG RECT SUPP PR ONE (18:41)
[2025-07-26] MEDS: DOCUSATE SOD 100 MG CAP PO PRN (18:41)
[2025-07-26] MEDS ORDERED: DEXTROSE (50%) 50ML SYRG IV SCH (22:00)
[2025-07-26] MEDS: AMINO ACID INFUSION IN D10W 1,000 ML IV SCH (22:39)
[2025-07-27] VITALS (11 sets, daily range): BP systolic 157–185; BP diastolic 77–86; PULSE 69–89; RESP 16–19; TEMP 97.9–98.3; O2SAT 97–100
[2025-07-27] MEDS: InsuLIN REG 1unit/0.01ml Soln (100units/ml) SC SCH
[2025-07-27] MEDS: ACCU-CHEK COMFORT CURVE STRIP VI SCH
--- NOTE | 2025-07-27 11:05 | DVHPN2 ---
Subjective Patient seen and examined at bedside, patient is feeling little better, Reviewed: H&P Changes from previous H/P or p: No Changes General: Per HPI Eyes: No Pain, No Vision change, No Conjunctivae inflammation, No Eyelid inflammation, No Other, No Redness ENT: No Ear pain, No Ear discharge, No Nose pain, No Nose discharge, No Nose congestion, No Mouth pain, No Mouth swelling, No Throat pain, No Throat swelling, No Other Cardiovascular: No Chest Pain, No Palpitations, No Orthopnea, No Paroxysmal Noc. Dyspnea, No Edema, No Lt Headedness, No Other Respiratory: No Cough, No Dry, No Shortness of breath, No SOB with excertion, No Wheezing, No Hemoptysis, No Pleuritic Pain, No Sputum, No Other Gastrointestinal: Abdominal Pain; No Diarrhea, No Constipation, No Melena, No Hematochezia, No Other Genitourinary: No Dysuria, No Frequency, No Incontinence, No Hematuria, No Retention, No Other Musculoskeletal: No other, No neck pain, No shoulder pain, No arm pain, No back pain, No hand pain, No leg pain, No foot pain Skin: No Rash, No Lesions, No Jaundice, No Bruising, No Other Objective Vitals Vital Signs Date Time Temp Pulse Resp B/P (MAP) Pulse Ox O2 Delivery O2 Flow Rate FiO2 07/27/25 06:04 100 Nasal Cannula 2.0 07/27/25 06:04 28 07/27/25 05:00 98.0 86 16 171/86 (114) 98.0 Intake/Output Intake and Output 07/27/25 07:00 Intake Total 900 ml Output Total 1250 ml Balance -350 ml Intake Oral 0 ml IV Total 900 ml Output Urine Total 1250 ml # Bowel Movements 3 Exam GENERAL: Not in acute distress. HEENT: EOMI, Moist mucous membranes. No scleral icterus. No cervical lymphadenopathy. Nasogastric tube in place LUNGS: Clear to auscultation bilaterally. No accessory muscle use. CARDIOVASCULAR: Regular rate and rhythm. No murmur. No JVD. ABDOMEN: Nondistended, mild tenderness EXTREMITIES: No edema. Nontender. SKIN: No rashes or lesions. Warm. NEUROLOGIC: Alert and oriented X3 Medications Current Medications Medications Dose Ordered Sig/Alexa Route Start Time Stop Time Status Last Admin Dose Admin Albuterol 2.5 mg Q4HPRN PRN NEB 9/11/25 00:45 Ipratropium [place] 0.5 mg Q4HPRN PRN NEB 07/23/25 00:45 Ondansetron HCl 4 mg Q4HPRN PRN IV 07/23/25 10:30 UNV Hydralazine HCl 10 mg Q6HPRN PRN IV 07/23/25 10:45 07/27/25 03:15 10 MG Ondansetron HCl 4 mg Q6HPRN PRN IV 07/23/25 10:45 07/23/25 23:46 4 MG Hydromorphone HCl 0.5 mg Q2HPRN PRN IV 07/23/25 12:00 07/26/25 05:06 0.5 MG Metronidazole 100 ml @ 100 mls/hr Q8HR IV 07/23/25 14:00 07/27/25 05:17 100 MLS/HR Potassium Chloride/Sodium Chloride 1,000 ml @ 75 mls/hr [id number] IV 07/24/25 10:45 Cancel Pantoprazole Sodium 40 mg BID IV 07/24/25 14:15 07/26/25 21:33 40 MG Piperacillin Sod/ Tazobactam Sod 100 ml @ 25 mls/hr Q8HR IV 07/25/25 06:00 07/27/25 06:34 25 MLS/HR Docusate Sodium 100 mg BIDPRN PRN PO 07/26/25 13:00 07/26/25 18:41 100 MG Amino Acids 0 ml @ 0 mls/hr PER PHARMACY IV 07/26/25 15:00 Amino Acids/ Electrolytes/ Dextrose 1,000 ml @ 41 mls/hr DAILY@2200 IV 07/26/25 22:00 07/26/25 22:39 41 MLS/HR Diagnostic Test (Pha) 1 strip Q6HR 07/27/25 00:00 07/27/25 05:49 1 STRIP Insulin Human Regular FOLLOW SLIDING SCALE Q6HR SC 07/27/25 00:00 Dextrose 50 ml UD IV 07/26/25 22:00 Laboratory Results Laboratory Tests 07/26/25 05:27 Urinalysis Test 07/22/25 22:40 07/24/25 00:31 Urine Hyaline Casts Few /lpf (0 - 2) Urine Mucus Few (None Seen) Urine Osmolality 554 mOsm/kg Urine Color Yellow (Yellow) Urine Clarity Clear (Clear) Urine pH 5.5 (5.0-9.0) Urine Specific [place] 1.035 (1.001-1.035) Urine Protein Trace (Negative) H Urine Ketones Trace (Negative) Urine Blood Negative /uL (Negative) Urine Nitrite Negative (Negative) Urine Bilirubin Negative (Negative) Urine Urobilinogen Normal mg/dL (Negative) Urine Leukocyte Esterase Negative /uL (Negative) Urine RBC 1 /hpf (0 - 4) Urine Microscopic WBC 2 /HPF (0-5) Urine Squamous Epithelial Cells Few /hpf (<5) Urine Bacteria None seen /hpf (None Seen) Urine Creatinine 135.24 mg/dL (30.0-125.0) H Urine Protein/Creatinine Ratio 0.60 Urine Sodium 28 mmol/L (40-220) L Urine Glucose Normal mg/dL (Normal) Urine Total Protein 81.2 mg/dL (1-14) H Microbiology Microbiology Date/Time Source Procedure Growth Status 07/23/25 02:42 Blood Blood Culture - Preliminary NO GROWTH AFTER 72 HOURS OF INCUBATION. Resulted Labs and/or images reviewed: Labs reviewed by me, Image(s) reviewed by me Assessment/Plan Assessment/Plan 07/26 - trial ice chips with clamp ng tube. appreciate surgical recommendations 07/27: Patient had 2 large bowel movements this a.m., surgery has been updated, patient asking for removal of NG tube, abdomen is soft bowel sounds hypoactive. Patient has been eating ice chips and tolerating well, no nausea no vomiting. NG tube has been on clamp and yesterday had only 100 cc output bilious. Patient asking go home today. Surgery has been updated, pending recommendations. -surgery recommendations: Trial clear liquid diet if tolerating well, in 1 hour, around noon, remove NG tube. Continue clear liquid diet or advance as tolerated. I recommend clear liquid diet for noon/lunch, tolerance eval by 3 BM, advanced to full liquid diet for tonight and reassess tomorrow a.m.. # sepsis due to terminal ileitis # lactic acidosis # ?Small bowel obstruction # IBD? -iv fluids -IV zosym -lactic acid -blood culture # terminal ileitis? Inflammation? Infection? Ischemia -CT abd pelvis -iv fluids -IV zosyn and flagyl -lactic acid - NPO - GI consult - surgeon consult: Recommened: Continue bowel rest, NPO except for ice chips and Continue NG tube decompression. 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 -seen on CT -consider cardiology and surgical consultation # hypokalemia -corrected -monitor # Acute kidney injury superimposed Chronic Kidney Disease secondary hemodynamic mediated, FeNa <1%. # Complex left kidney lesion 2.1 cm -IV fluids -Kidney function is improving -monitor -nephrology on board # normocytic anemia # Anemia of chronic kidney disease -monitor #COPD -on 4L -ipratropium and albuterol PRN #Dyslipidemia #Chronic back pain # Hypokalemia - replenished # hyponatremia - monitor lab Plan discussed with: Patient My Orders Orders - PERCY HIDALGO MD Procedure Category Date Status Time Ppn Per Pharmacy PHA 07/26/25 In Process 15:00 Amino Acid Infusion PHA 07/26/25 In Process In D10w ([facility] 4. 22:00 Glucose Blood PHA 07/27/25 In Process (Accu-Chek Comfort 00:00 Insulin R (Human) PHA 07/27/25 In Process (Insulin R) 00:00 Dextrose 50% Syringe PHA 07/26/25 In Process 22:00 Comprehensive LAB 07/27/25 Logged Metabolic Panel 05:00 Phosphorus LAB 07/27/25 Logged 05:00 Magnesium LAB 07/27/25 Logged 05:00 Triglycerides LAB 07/27/25 Logged 05:00 Ppn Per Pharmacy WANDA 07/26/25 In Process 22:00 Kub Abdomen Single XY 07/27/25 Logged View 10:54 Date of Service: Jul 27, 2025 Billing Provider: PERCY HIDALGO MD Common Visit Codes: [id number] INP/OBS CARE(HIGH) PERCY HIDALGO MD Jul 27, 2025 11:05
--- NOTE | 2025-07-27 11:29 | DVHPN2 ---
Progress Note - Surgical Date Seen: Jul 27, 2025 Post op day Post op day: 0 Subjective Patient reports: Feels better (Patient is feeling great this morning, wants to eat, once the NG tube removed, has ambulated, had 3 bowel movements (large), afebrile with vital stable) Review of Systems: Deferred Objective Vital signs Vital Sign Date Time Temp Pulse Resp B/P (MAP) Pulse Ox O2 Delivery O2 Flow Rate FiO2 07/27/25 06:04 100 Nasal Cannula 2.0 07/27/25 06:04 28 07/27/25 05:00 98.0 86 16 171/86 (114) 98.0 Total Intake and Output 07/26/25 07/26/25 07/27/25 15:00 23:00 07:00 Intake Total 100 ml 600 ml 200 ml Output Total 350 ml 900 ml Balance 100 ml 250 ml -700 ml Medications Current Medications Medications Dose Ordered Sig/Alexa Route Start Time Stop Time Status Last Admin Dose Admin Albuterol 2.5 mg Q4HPRN PRN NEB 07/23/25 00:45 Ipratropium [place] 0.5 mg Q4HPRN PRN NEB 07/23/25 00:45 Ondansetron HCl 4 mg Q4HPRN PRN IV 07/23/25 10:30 UNV Hydralazine HCl 10 mg Q6HPRN PRN IV 07/23/25 10:45 07/27/25 03:15 10 MG Ondansetron HCl 4 mg Q6HPRN PRN IV 07/23/25 10:45 07/23/25 23:46 4 MG Hydromorphone HCl 0.5 mg Q2HPRN PRN IV 07/23/25 12:00 07/26/25 05:06 0.5 MG Metronidazole 100 ml @ 100 mls/hr Q8HR IV 07/23/25 14:00 07/27/25 05:17 100 MLS/HR Potassium Chloride/Sodium Chloride 1,000 ml @ 75 mls/hr [id number] IV 07/24/25 10:45 Cancel Pantoprazole Sodium 40 mg BID IV 07/24/25 14:15 07/26/25 21:33 40 MG Piperacillin Sod/ Tazobactam Sod 100 ml @ 25 mls/hr Q8HR IV 07/25/25 06:00 07/27/25 06:34 25 MLS/HR Docusate Sodium 100 mg BIDPRN PRN PO 07/26/25 13:00 07/26/25 18:41 100 MG Amino Acids 0 ml @ 0 mls/hr PER PHARMACY IV 07/26/25 15:00 Amino Acids/ Electrolytes/ Dextrose 1,000 ml @ 41 mls/hr DAILY@2200 IV 07/26/25 22:00 07/26/25 22:39 41 MLS/HR Diagnostic Test (Pha) 1 strip Q6HR 07/27/25 00:00 07/27/25 05:49 1 STRIP Insulin Human Regular FOLLOW SLIDING SCALE Q6HR SC 07/27/25 00:00 Dextrose 50 ml UD IV 07/26/25 22:00 Laboratory Laboratory Tests 07/26/25 05:27 Test 07/26/25 05:27 Range/Units Serum Glucose 85 74-106 mg/dL Microbiology Date/Time Source Procedure Growth Status 07/23/25 02:42 Blood Blood Culture - Preliminary NO GROWTH AFTER 72 HOURS OF INCUBATION. Resulted Examination: GENERAL:Normal, ABDOMEN:Normal (Nondistended previous surgical scars well healed, nontender) Problem List/Assessment/Plan Assessment and Plan Mrs. Hewitt is a 84-year-old female who presented yesterday with terminal ileitis seen on CT. Patient condition continues to improve, she had 3 large bowel movements. Patient really wants to eat today and wants the NG tube removed. Given that her condition has significantly improved, we can start progressing her diet. Recommend 1. Clear liquid diet, leave NG tube in place while on the clear liquid diet. If she tolerates well remove the NG tube and advanced to full liquid diet in the afternoon. And continue to advance diet as tolerated 2. Continue with IV antibiotics 3. Suppository prn daily 4. Colace 100 mg b.i.d. 5. Advised against the use of oral cathartic medications 6. avoid narcotic medications My Orders My Orders Orders - MARTA HERNANDEZ MD Procedure Category Date Status Time Docusate Sodium PHA 07/26/25 In Process Capsule (Colace 13:00 Plan discussed with Plan discussed with: Patient Visit Coding Surgery Date of Service if different f: Jul 27, 2025 Billing Provider: MARTA HERNANDEZ MD Surgery Visit Codes: [id number] INP/OBS CARE(HIGH) MARTA HERNANDEZ MD Jul 27, 2025 11:29
--- NOTE | 2025-07-27 12:14 | DVH ---
Date: 07/27/2025 11:25 AM Examination: XY KUB ABDOMEN SINGLE VIEW History: upright kub, assess sbo Comparison: XY KUB ABDOMEN SINGLE VIEW on DOS: 07/26/25, XY KUB ABDOMEN SINGLE VIEW on DOS: 07/23/25, U S ABDOMEN COMPLETE SONOGRAM on DOS: 07/23/25, CT CT AB PEL WITH IV CON ONLY on DOS: 07/22/25, CT CT AB PEL WO CON-NO ORAL OR IV on DOS: 08/14/23 TECHNIQUE: Frontal views of the abdomen was obtained. FINDINGS: Dilated loops of small bowel are visualized. Enteric tube tip projects over the expected region of th e stomach. The lung bases are unremarkable. Lower pelvis is collimated from field of view. No acute osseous abnormality identified. IMPRESSION: Dilated loops of small bowel are visualized suggestive of small-bowel obstruction.
[2025-07-27 14:13] LABS: Alanine Aminotransferase 14 U/L (7-40); Alkaline Phosphatase 53 U/L (46-116); Anion Gap 9 (5-15); BUN/Creatinine Ratio 15.6 (10.0-20.0); Blood Urea Nitrogen 12 mg/dL (9-23); Calcium 8.9 mg/dL (8.7-10.4); Carbon Dioxide 29 mmol/L (20-31); Magnesium 1.8 mg/dL (1.6-2.6); Potassium 3.6 mmol/L (3.5-5.1); Total Protein 5.9 g/dL (5.7-8.2); Triglycerides 81 mg/dL (< 150)
[2025-07-27 14:14] LABS: Albumin 3.6 g/dL (3.2-4.8)
[2025-07-27 14:15] LABS: Bilirubin, Total 0.4 mg/dL (0.2-1.0); Chloride 95 mmol/L (98-107); Glucose 125 mg/dL (74-106); Sodium 133 mmol/L (136-145)
--- NOTE | 2025-07-27 17:18 | DVHPN2 ---
Progress Note Date Seen: Jul 27, 2025 Resident Creating Document: JOSIE SIERRA RESIDENT Medical Necessity Reason Pt with a Central, PICC or Fol: Yes The following are medically ne: Pimentel Catheter Subjective Review of Systems Patient seen and examined at bedside Soft but distended abdomen Positive bowel sounds in all 4 quadrants Three large soft bowel movements overnight 100 cc dark black drainage in the NG tube Objective vital signs Vital Sign Date Time Temp Pulse Resp B/P (MAP) Pulse Ox O2 Delivery O2 Flow Rate FiO2 07/27/25 14:58 184/86 07/27/25 13:00 98.0 69 17 100 98.0 07/27/25 10:00 Nasal Cannula 2.0 07/27/25 10:00 28 Total Intake and Output 07/26/25 07/26/25 07/27/25 15:00 23:00 07:00 Intake Total 100 ml 600 ml 200 ml Output Total 350 ml 900 ml Balance 100 ml 250 ml -700 ml medications Current Medications Medications Dose Ordered Sig/Alexa Route Start Time Stop Time Status Last Admin Dose Admin Albuterol 2.5 mg Q4HPRN PRN NEB 07/23/25 00:45 Ipratropium [place] 0.5 mg Q4HPRN PRN NEB 07/23/25 00:45 Ondansetron HCl 4 mg Q4HPRN PRN IV 07/23/25 10:30 UNV Hydralazine HCl 10 mg Q6HPRN PRN IV 07/23/25 10:45 07/27/25 14:58 10 MG Ondansetron HCl 4 mg Q6HPRN PRN IV 07/23/25 10:45 07/23/25 23:46 4 MG Hydromorphone HCl 0.5 mg Q2HPRN PRN IV 07/23/25 12:00 07/26/25 05:06 0.5 MG Metronidazole 100 ml @ 100 mls/hr Q8HR IV 07/23/25 14:00 07/27/25 14:55 100 MLS/HR Potassium Chloride/Sodium Chloride 1,000 ml @ 75 mls/hr [id number] IV 07/24/25 10:45 Cancel Pantoprazole Sodium 40 mg BID IV 07/24/25 14:15 07/27/25 11:43 40 MG Piperacillin Sod/ Tazobactam Sod 100 ml @ 25 mls/hr Q8HR IV 07/25/25 06:00 07/27/25 14:55 25 MLS/HR Docusate Sodium 100 mg BIDPRN PRN PO 07/26/25 13:00 07/26/25 18:41 100 MG Amino Acids/ Electrolytes/ Dextrose 1,000 ml @ 41 mls/hr DAILY@2200 IV 07/26/25 22:00 07/27/25 21:59 07/26/25 22:39 41 MLS/HR Diagnostic Test (Pha) 1 strip Q6HR 07/27/25 00:00 07/27/25 12:00 1 STRIP Insulin Human Regular FOLLOW SLIDING SCALE Q6HR SC 07/27/25 00:00 Dextrose 50 ml UD IV 07/26/25 22:00 Nifedipine 60 mg DAILY PO 07/27/25 17:15 UNV Examination General Appearance: Cooperative. Well developed. Well nourished. NAD Pulmonary/Respiratory: Chest non-tender. Equal bilateral air entry Cardiovascular/Chest: Regular rate and rhythm. Abdominal Exam: Normal bowel sounds. Soft. Distended abdomen, no visible veins, diffuse generalized tenderness to palpation, most pronounced in the left lower quadrant. Negative Rosenthal's sign. No hepatospenomegaly. No masses Neuro/Mental Status: A&O x4. Coherent. Skin Exam: Normal inspection. Normal color. Warm. Dry laboratory and microbiology Laboratory Tests 07/27/25 13:28 07/26/25 05:27 Test 07/27/25 13:28 Range/Units Serum Glucose 125 H 74-106 mg/dL Microbiology Date/Time Source Procedure Growth Status 07/23/25 02:42 Blood Blood Culture - Preliminary NO GROWTH AFTER 72 HOURS OF INCUBATION. Resulted Problem List/Assessment/Plan Problem List/Assessment/Plan Terminal ileitis/colitis, possibly infectious versus inflammatory (yersinia?) Sepsis due to above Hematemesis Left kidney lesion/cyst? Cholelithiasis, cholecystitis less likely Acute intractable abdominal pain due to above Small-bowel obstruction not excluded DARVIN likely hemodynamically mediated/VMN Hyponatremia Hypokalemia Elevated D-dimer; r/o PE Plan: Clear liquid diet IV Protonix 40 mg b.i.d. IV metronidazole Q 8 hours Continue IV Zosyn Repeat KUB: Small bowel obstruction (07/27/2025) NG tube to LIS Pending Stool WBC, IBD panel, stool bacterial culture, stool occult blood IV hydration Ice chips only Workup for inflammatory bowel disease with GI in the outpatient clinic Thank you so much for the opportunity to consult on your patient. GI team will follow the patient. In case of any questions or concerns please feel free to reach out. Plan discussed with Dr. Antonio Plan discussed with: Patient, Other (RN) Dietary Evaluation Review Recommendations by RD: Dietary education by RD Comments: 1) If patient remains NPO > 7 days, consider EN/TPN to meet at least 75% of estimated daily needs 2) Advance to cardiac diet when medically feasible 3) Refer to outpatient RD for weight management 4) Follow-up with gastroenterology, cardiology, pulmonology, and nephrology 5) Continue to monitor I&O, labs, and skin integrity Expected Outcomes/Goals: 1) patient to receive nutritional support within 7 days of NPO status 2) labs to improve 3) diet to advance 4) f/u in 3-5 days JOSIE SIERRA RESIDENT Jul 27, 2025 17:17
[2025-07-27] MEDS: SOD CHL 0.9%/ KCL 40MEQ 1,000 ML IV ONE (18:13)
--- NOTE | 2025-07-27 20:32 | DVHPN2 ---
Progress Note Date Seen: Jul 27, 2025 Medical Necessity Reason Pt with a Central, PICC or Fol: Yes The following are medically ne: Pimentel Catheter Subjective Patient reports: No new complaints (has ngt ) Review of Systems: HEENT:Normal, CVS:Normal, RESPIRATORY:Normal, GI:Normal, :Normal, MSK:Normal, NEURO:Normal Objective vital signs Vital Sign Date Time Temp Pulse Resp B/P (MAP) Pulse Ox O2 Delivery O2 Flow Rate FiO2 07/27/25 20:15 97 Nasal Cannula* 2 28 07/27/25 17:44 191/83 07/27/25 17:00 98.0 80 19 98.0 Total Intake and Output 07/26/25 07/26/25 07/27/25 15:00 23:00 07:00 Intake Total 100 ml 600 ml 200 ml Output Total 350 ml 900 ml Balance 100 ml 250 ml -700 ml medications Current Medications Medications Dose Ordered Sig/Alexa Route Start Time Stop Time Status Last Admin Dose Admin Albuterol 2.5 mg Q4HPRN PRN NEB 07/23/25 00:45 Ipratropium [place] 0.5 mg Q4HPRN PRN NEB 07/23/25 00:45 Ondansetron HCl 4 mg Q4HPRN PRN IV 07/23/25 10:30 UNV Hydralazine HCl 10 mg Q6HPRN PRN IV 07/23/25 10:45 07/27/25 14:58 10 MG Ondansetron HCl 4 mg Q6HPRN PRN IV 07/23/25 10:45 07/23/25 23:46 4 MG Hydromorphone HCl 0.5 mg Q2HPRN PRN IV 07/23/25 12:00 07/26/25 05:06 0.5 MG Metronidazole 100 ml @ 100 mls/hr Q8HR IV 07/23/25 14:00 07/27/25 14:55 100 MLS/HR Potassium Chloride/Sodium Chloride 1,000 ml @ 75 mls/hr [id number] IV 07/24/25 10:45 Cancel Pantoprazole Sodium 40 mg BID IV 07/24/25 14:15 07/27/25 11:43 40 MG Piperacillin Sod/ Tazobactam Sod 100 ml @ 25 mls/hr Q8HR IV 07/25/25 06:00 07/27/25 14:55 25 MLS/HR Docusate Sodium 100 mg BIDPRN PRN PO 07/26/25 13:00 07/26/25 18:41 100 MG Amino Acids/ Electrolytes/ Dextrose 1,000 ml @ 41 mls/hr DAILY@2200 IV 07/26/25 22:00 07/27/25 21:59 07/26/25 22:39 41 MLS/HR Diagnostic Test (Pha) 1 strip Q6HR 07/27/25 00:00 07/27/25 18:04 1 STRIP Insulin Human Regular FOLLOW SLIDING SCALE Q6HR SC 07/27/25 00:00 07/27/25 18:12 2 UNITS Dextrose 50 ml UD IV 07/26/25 22:00 Nifedipine 60 mg DAILY PO 07/27/25 17:15 07/27/25 17:44 60 MG laboratory and microbiology Laboratory Tests 07/27/25 13:28 07/26/25 05:27 Test 07/27/25 13:28 Range/Units Serum Glucose 125 H 74-106 mg/dL Microbiology Date/Time Source Procedure Growth Status 07/23/25 02:42 Blood Blood Culture - Preliminary NO GROWTH AFTER 72 HOURS OF INCUBATION. Resulted Problem List/Assessment/Plan Problem List/Assessment/Plan Acute kidney injury superimposed Chronic Kidney Disease secondary hemodynamic mediated, FeNa <1% Dehydration Terminal ileitis Hyponatremia due to dehydration Hypokalemia due to potassium depletion Sepsis Hypertension Anemia of chronic kidney disease Mild proteinuria Complex left kidney lesion 2.1 cm ?cyst recs better renal function per ct--left renal cyst with calcification na acceptable dc ivf Plan discussed with: Patient Dietary Evaluation Review Recommendations by RD: Dietary education by RD Comments: 1) If patient remains NPO > 7 days, consider EN/TPN to meet at least 75% of estimated daily needs 2) Advance to cardiac diet when medically feasible 3) Refer to outpatient RD for weight management 4) Follow-up with gastroenterology, cardiology, pulmonology, and nephrology 5) Continue to monitor I&O, labs, and skin integrity Expected Outcomes/Goals: 1) patient to receive nutritional support within 7 days of NPO status 2) labs to improve 3) diet to advance 4) f/u in 3-5 days NASREEN HULL MD Jul 27, 2025 20:32
[2025-07-28] VITALS (9 sets, daily range): BP systolic 113–159; BP diastolic 67–77; PULSE 71–95; RESP 17–19; TEMP 36.8; O2SAT 91–98
[2025-07-28 08:39] LABS: Hematocrit 27.2 % (36.0-46.0); Hemoglobin 9.1 g/dL (12.2-16.2); Mean Corpuscular Hemoglobin 27.8 pg (28.0-32.0); Mean Corpuscular Volume 82.9 fL (80.0-100.0); Nucleated Red Blood Cells % 0.1 %
[2025-07-28 08:48] LABS: Anion Gap 10 (5-15); Carbon Dioxide 28 mmol/L (20-31)
[2025-07-28 08:54] LABS: BUN/Creatinine Ratio 9.1 (10.0-20.0); Blood Urea Nitrogen 6 mg/dL (9-23); Calcium 8.6 mg/dL (8.7-10.4); Chloride 94 mmol/L (98-107); Glucose 100 mg/dL (74-106); Potassium 2.9 mmol/L (3.5-5.1); Sodium 132 mmol/L (136-145)
--- NOTE | 2025-07-28 11:28 | DVHDS2 ---
Discharge Summary Date of Admission Jul 22, 2025 at 21:54 Date of Discharge: Jul 28, 2025 Labs/Diagnostic Data: Laboratory Results Test 07/28/25 07:50 07/27/25 18:00 07/27/25 13:28 07/26/25 05:27 White Blood Count 8.5 10^3/uL (4.4-10.8) Red Blood Count 3.29 10^6/uL (4.0-5.20) Hemoglobin 9.1 g/dL (12.2-16.2) Hematocrit 27.2 % (36.0-46.0) Mean Corpuscular Volume 82.9 fL (80.0-100.0) Mean Corpuscular Hemoglobin 27.8 pg (28.0-32.0) Mean Corpuscular Hemoglobin Concent 33.6 g/dL (32.0-36.0) Red Cell Distribution Width 14.0 % (11.8-14.3) Platelet Count 363 10^3/uL (140-450) Mean Platelet Volume 7.9 fL (6.9-10.8) Neutrophils (%) (Auto) 64.1 % (37.0-80.0) Lymphocytes (%) (Auto) 20.0 % (10.0-50.0) Monocytes (%) (Auto) 13.8 % (0.0-12.0) Eosinophils (%) (Auto) 1.2 % (0.0-7.0) Basophils (%) (Auto) 0.9 % (0.0-2.0) Neutrophils # (Auto) 5.4 10 ^3/uL (1.6-8.6) Lymphocytes # (Auto) 1.7 10 ^3/uL (0.4-5.4) Monocytes # (Auto) 1.2 10 ^3/uL (0-1.3) Eosinophils # (Auto) 0.1 10 ^3/uL (0-0.8) Basophils # (Auto) 0.1 10 ^3/uL (0-0.2) Nucleated Red Blood Cells 0.1 % Sodium Level 132 mmol/L (136-145) Potassium Level 2.9 mmol/L (3.5-5.1) Chloride Level 94 mmol/L (98-107) Carbon Dioxide Level 28 mmol/L (20-31) Anion Gap 10 (5-15) Blood Urea Nitrogen 6 mg/dL (9-23) Creatinine 0.66 mg/dL (0.550-1.02) Glomerular Filtration Rate Calc 88 mL/min (>90) BUN/Creatinine Ratio 9.1 (10.0-20.0) Serum Glucose 100 mg/dL (74-106) Calcium Level 8.6 mg/dL (8.7-10.4) POC Glucose 140 mg/dl (70-106) Phosphorus Level 2.2 mg/dL (2.4-5.1) Magnesium Level 1.8 mg/dL (1.6-2.6) Total Bilirubin 0.4 mg/dL (0.2-1.0) Aspartate Amino Transferase (AST) 28 U/L (13-40) Alanine Aminotransferase (ALT) 14 U/L (7-40) Alkaline Phosphatase 53 U/L (46-116) Total Protein 5.9 g/dL (5.7-8.2) Albumin 3.6 g/dL (3.2-4.8) Triglycerides Level 81 mg/dL (< 150) Differential Total Cells Counted 100.0 (100) Neutrophils % (Manual) 68 (37.0-80.0) Band Neutrophils % (Manual) 3 Lymphocytes % (Manual) 17 (10.0-50.0) Monocytes % (Manual) 9 (0-12) Eosinophils % (Manual) 3 (0-7) Basophils % (Manual) 0 (0.0-2.0) Metamyelocytes % (manual) 0 Myelocytes % (Manual) 0 Promyelocytes % (Manual) 0 Blast Cells % (Manual) 0 Reactive Lymphocytes 0 Platelet Estimate Adequate Test 07/25/25 10:50 07/24/25 10:50 07/24/25 00:31 07/23/25 18:36 Lactic Acid Level 0.7 mmol/L (0.4-2.0) Prothrombin Time 11.3 sec (9.3-11.8) Prothrombin Time INR 1.07 (0.9-1.15) Activated Partial Thromboplast Time 102.4 SEC (24.5-34.5) Urine Color Yellow (Yellow) Urine Clarity Clear (Clear) Urine pH 5.5 (5.0-9.0) Urine Specific [place]bler 1.035 (1.001-1.035) Urine Protein Trace (Negative) Urine Ketones Trace (Negative) Urine Blood Negative /uL (Negative) Urine Nitrite Negative (Negative) Urine Bilirubin Negative (Negative) Urine Urobilinogen Normal mg/dL (Negative) Urine Leukocyte Esterase Negative /uL (Negative) Urine RBC 1 /hpf (0 - 4) Urine Microscopic WBC 2 /HPF (0-5) Urine Squamous Epithelial Cells Few /hpf (<5) Urine Bacteria None seen /hpf (None Seen) Urine Creatinine 135.24 mg/dL (30.0-125.0) Urine Protein/Creatinine Ratio 0.60 Urine Sodium 28 mmol/L (40-220) Urine Glucose Normal mg/dL (Normal) Urine Total Protein 81.2 mg/dL (1-14) Carcinoembryonic Antigen 2.81 ng/mL (<=5.0) Test 07/23/25 16:51 07/23/25 13:12 07/23/25 12:21 07/23/25 10:40 Saccharomyces cerevisiae IgG Ab <20.0 Units (0.0-24.9) Saccharomyces cerevisiae IgA Ab <20.0 Units (0.0-24.9) Erythrocyte Sedimentation Rate 46 mm/hr (0-20) Parathyroid Hormone (Intact) 26.2 pg/mL (18.4-80.1) Vitamin D 25-Hydroxy 50.6 ng/mL (30.0-100) Uric Acid 4.7 mg/dL (3.1-7.8) C-Reactive Protein High Sensitivity 18.21 mg/dL (<1.0) Test 07/23/25 02:42 07/22/25 22:40 07/22/25 20:46 07/22/25 13:27 D-Dimer, Quantitative 13.97 mg/L FEU (0.0-0.49) Serum Osmolality 282 mOsm/kg (278-298) Urine Hyaline Casts Few /lpf (0 - 2) Urine Mucus Few (None Seen) Urine Osmolality 554 mOsm/kg Hemoglobin A1c 5.9 % A1C (<5.7) Thyroid Stimulating Hormone (TSH) 1.62 uIU/mL (0.55-4.78) Troponin I High Sensitivity 16 ng/L (</=34) Lipase 31 U/L (12-53) Other Laboratory Tests 07/28/25 07:50 Brief Hx & Hospital Course: 84 year old female with past medical history of hypertension, gout, COPD, dyslipidemia, chronic back pain, lower bowel obstruction came to the ED with chief complaints of abdominal pain mostly in the right quadrant, suprapubic region since 4 days which is associated with nausea, vomiting 5 times a day which was yellow, did not have any blood and was aggravated by drinking water. Patient also complained of dizziness, chills, night sweats, weight loss which was greater than 35 lb he has in the last year, patient denies any diarrhea, blood in the stool, dysuria, fever, attending chest pain, palpitations. Patient states that her nausea and vomiting increased after the abdominal pain and after taking ciprofloxacin. Patient on arrival had leukocytosis, hyponatremia, hypokalemia. CT abdomen showed Diffuse wall thickening of the distal ileum is consistent with terminal ileitis. Patient is admitted for further management. 07/26 - trial ice chips with clamp ng tube. appreciate surgical recommendations 07/27: Patient had 2 large bowel movements this a.m., surgery has been updated, patient asking for removal of NG tube, abdomen is soft bowel sounds hypoactive. Patient has been eating ice chips and tolerating well, no nausea no vomiting. NG tube has been on clamp and yesterday had only 100 cc output bilious. Patient asking go home today. Surgery has been updated, pending recommendations. -surgery recommendations: Trial clear liquid diet if tolerating well, in 1 hour, around noon, remove NG tube. Continue clear liquid diet or advance as tolerated. I recommend clear liquid diet for noon/lunch, tolerance eval by 3 BM, advanced to full liquid diet for tonight and reassess tomorrow a.m.. 04/27: Patient doing well, NG tube was not removed yesterday. Removed now she has been tolerating p.o. well since yesterday, passing gas. Patient vital signs stable tolerating p.o. passing gas bowel function intact, stable for discharge as per plan below. Continue full liquid diet 1-2 weeks, docusate 100 mg twice daily 30 days, continue other home medications, follow up with surgery 1-2 weeks, follow up with PCP for discharge review. diagnosis: # sepsis due to terminal ileitis # lactic acidosis # Small bowel obstruction likely, partial, resolved # Acute hypoxic resp failure likely due to sepsis # hyponatremia, likely hypovolumic # IBD, unable to rule out # hypokalemia # hyponatremia # PAD, renal, SMA, celiac, R common iliac, # Acute kidney injury superimposed Chronic Kidney Disease # Complex left kidney lesion 2.1 cm # Anemia of chronic kidney disease #COPD , not in exacerbation #Dyslipidemia #Chronic back pain Discharge plan: - Continue full liquid diet 1-2 weeks, Take Augmentin 875 mg twice daily for 3 days. -docusate 100 mg twice daily 30 days, Stops taking Coreg, chlorthalidone, losartan -continue other home medications not mentioned above -follow up with surgery 1-2 weeks, -follow up with PCP for discharge review. Condition at Discharge: Fair Final Diagnosis/Problems List # sepsis due to terminal ileitis # lactic acidosis # Small bowel obstruction likely, partial, resolved # Acute hypoxic resp failure likely due to sepsis # hyponatremia, likely hypovolumic # IBD, unable to rule out # hypokalemia # hyponatremia # PAD, renal, SMA, celiac, R common iliac, # Acute kidney injury superimposed Chronic Kidney Disease # Complex left kidney lesion 2.1 cm # Anemia of chronic kidney disease #COPD , not in exacerbation #Dyslipidemia #Chronic back pain Discharge Disposition: Home Discharge Instruct/Medications Scheduled Allopurinol (Zyloprim Tablet), 1 TAB PO DAILY, (Reported) Aspirin (Aspirin Low Dose), 81 MG PO DAILY Atorvastatin Calcium (Atorvastatin Calcium), 1 TAB PO DAILY Carvedilol (Coreg), 12.5 MG PO Q12HR Chlorthalidone (Chlorthalidone), 25 MG PO DAILY@BREAKFAST Gemfibrozil (Gemfibrozil), 1 TAB PO DAILY, (Reported) Losartan Potassium (Losartan Potassium), 100 MG PO DAILY Nifedipine (Nifedipine Er), 1 TAB PO DAILY Scheduled PRN Acetaminophen (Tylenol), 325 MG PO Q4HPRN PRN Diphenoxylate W/ Atropine (Lomotil), 1 TAB PO TID PRN for FOR DIARRHEA, (Reported) Discharge Statement: "Patient was advised to return to the ER or call 911 if any headaches, dizziness, shortness of breath, chest pain, abdominal pain, bleeding, fevers, or worsening of medical condition. Patient was counseled about treatment plan, medications, possible side effects, patientverbalized understanding. All questions were answered to the best of my ability. This discharge took greater then 30 minutes in planning, reviewing documentation, counseling the patient, and discussing with other team members." ASSESSMENT ASSESSMENT Assessment Date of Service: Jul 28, 2025 Billing Provider: PERCY HIDALGO MD Common Visit Codes: 69243-WER/[id number] DISCH DAY >30min PERCY HIDALGO MD Jul 28, 2025 11:28
[2025-07-28] MEDS: POTASSIUM CHLORIDE 40 MEQ, LIDOCAINE 1% (LOCAL ANESTH.) 4 ML in SODIUM CHL 0.9% 250 ML IV ONE (14:11)
[2025-07-28] MEDS ORDERED: AUG875T PO (14:24)
[2025-07-28] MEDS ORDERED: DOCU-265 PO (14:24)
--- NOTE | 2025-07-28 15:24 | DVHPN2 ---
Progress Note Date Seen: Jul 28, 2025 Resident Creating Document: JOSIE SIERRA RESIDENT Medical Necessity Reason Pt with a Central, PICC or Fol: Yes The following are medically ne: Pimentel Catheter Subjective Review of Systems Patient seen and examined at bedside Last bowel movement this a.m. Removed NG tube Reports feeling significantly better than prior Objective vital signs Vital Sign Date Time Temp Pulse Resp B/P (MAP) Pulse Ox O2 Delivery O2 Flow Rate FiO2 07/28/25 13:35 98.2 71 19 137/77 (97) 94 98.2 07/28/25 10:07 Nasal Cannula* 3 32 Total Intake and Output 07/27/25 07/27/25 07/28/25 15:00 23:00 07:00 Intake Total 500 ml 300 ml Output Total 700 ml 450 ml Balance -200 ml -150 ml medications Current Medications Medications Dose Ordered Sig/Alexa Route Start Time Stop Time Status Last Admin Dose Admin Albuterol 2.5 mg Q4HPRN PRN NEB 07/23/25 00:45 Ipratropium [place] 0.5 mg Q4HPRN PRN NEB 07/23/25 00:45 Ondansetron HCl 4 mg Q4HPRN PRN IV 07/23/25 10:30 UNV Hydralazine HCl 10 mg Q6HPRN PRN IV 07/23/25 10:45 07/27/25 14:58 10 MG Ondansetron HCl 4 mg Q6HPRN PRN IV 07/23/25 10:45 07/28/25 08:42 4 MG Hydromorphone HCl 0.5 mg Q2HPRN PRN IV 07/23/25 12:00 07/27/25 22:22 0.5 MG Metronidazole 100 ml @ 100 mls/hr Q8HR IV 07/23/25 14:00 07/28/25 13:20 100 MLS/HR Potassium Chloride/Sodium Chloride 1,000 ml @ 75 mls/hr [id number] IV 07/24/25 10:45 Cancel Pantoprazole Sodium 40 mg BID IV 07/24/25 14:15 07/28/25 10:07 40 MG Piperacillin Sod/ Tazobactam Sod 100 ml @ 25 mls/hr Q8HR IV 07/25/25 06:00 07/28/25 06:19 25 MLS/HR Docusate Sodium 100 mg BIDPRN PRN PO 07/26/25 13:00 07/26/25 18:41 100 MG Diagnostic Test (Pha) 1 strip Q6HR 07/27/25 00:00 07/27/25 18:04 1 STRIP Insulin Human Regular FOLLOW SLIDING SCALE Q6HR SC 07/27/25 00:00 07/27/25 18:12 2 UNITS Dextrose 50 ml UD IV 07/26/25 22:00 Nifedipine 60 mg DAILY PO 07/27/25 17:15 07/28/25 10:06 60 MG Examination General Appearance: Cooperative. Well developed. Well nourished. NAD Pulmonary/Respiratory: Chest non-tender. Equal bilateral air entry Cardiovascular/Chest: Regular rate and rhythm. Abdominal Exam: Normal bowel sounds. Soft. Distended abdomen, no visible veins, diffuse generalized tenderness to palpation, most pronounced in the left lower quadrant. Negative Rosenthal's sign. No hepatospenomegaly. No masses Neuro/Mental Status: A&O x4. Coherent. Skin Exam: Normal inspection. Normal color. Warm. Dry laboratory and microbiology Laboratory Tests 07/28/25 07:50 Test 07/28/25 07:50 Range/Units Serum Glucose 100 74-106 mg/dL Microbiology Date/Time Source Procedure Growth Status 07/23/25 02:42 Blood Blood Culture - Final NO GROWTH AFTER 5 DAYS OF INCUBATION. Complete Labs and/or images reviewed: Labs reviewed by me, Image(s) reviewed by me Problem List/Assessment/Plan Problem List/Assessment/Plan Terminal ileitis/colitis, possibly infectious versus inflammatory (yersinia?) Sepsis due to above Hematemesis Left kidney lesion/cyst? Cholelithiasis, cholecystitis less likely Acute intractable abdominal pain due to above Small-bowel obstruction not excluded DARVIN likely hemodynamically mediated/VMN Hyponatremia Hypokalemia Elevated D-dimer; r/o PE Plan: Clear liquid diet IV Protonix 40 mg b.i.d. IV metronidazole Q 8 hours Continue IV Zosyn Repeat KUB: Small bowel obstruction (07/27/2025) NG tube to LIS Pending Stool WBC, IBD panel, stool bacterial culture, stool occult blood IV hydration Ice chips only Workup for inflammatory bowel disease with GI in the outpatient clinic Discharge planning Thank you so much for the opportunity to consult on your patient. GI team will follow the patient. In case of any questions or concerns please feel free to reach out. Plan discussed with Dr. Antonio Plan discussed with: Patient, Other (RN) Dietary Evaluation Review Recommendations by RD: Dietary education by RD Comments: 1) If patient remains NPO > 7 days, consider EN/TPN to meet at least 75% of estimated daily needs 2) Advance to cardiac diet when medically feasible 3) Refer to outpatient RD for weight management 4) Follow-up with gastroenterology, cardiology, pulmonology, and nephrology 5) Continue to monitor I&O, labs, and skin integrity Expected Outcomes/Goals: 1) patient to receive nutritional support within 7 days of NPO status 2) labs to improve 3) diet to advance 4) f/u in 3-5 days JOSIE SIERRA RESIDENT Jul 28, 2025 15:24
[2025-07-28] MEDS ORDERED: THROAT LOZENGES(CEPASTAT) MT ONE (16:00)
--- NOTE | 2025-07-28 16:41 | DVHPN2 ---
Progress Note - Surgical Date Seen: Jul 28, 2025 Post op day Post op day: 0 Subjective Patient reports: Feels better (Patient feels great she has been tolerating clear liquid diet, once the NG tube out, had 3 more bowel movements late yesterday evening,) Review of Systems: Deferred (No complaints of abdominal pain.) Objective Vital signs Vital Sign Date Time Temp Pulse Resp B/P (MAP) Pulse Ox O2 Delivery O2 Flow Rate FiO2 07/28/25 15:35 36.8 07/28/25 13:35 71 19 137/77 (97) 94 07/28/25 10:07 Nasal Cannula* 3 32 Total Intake and Output 07/27/25 07/27/25 07/28/25 15:00 23:00 07:00 Intake Total 500 ml 300 ml Output Total 700 ml 450 ml Balance -200 ml -150 ml Medications Current Medications Medications Dose Ordered Sig/Alexa Route Start Time Stop Time Status Last Admin Dose Admin Albuterol 2.5 mg Q4HPRN PRN NEB 07/23/25 00:45 Ipratropium [place] 0.5 mg Q4HPRN PRN NEB 07/23/25 00:45 Ondansetron HCl 4 mg Q4HPRN PRN IV 07/23/25 10:30 UNV Hydralazine HCl 10 mg Q6HPRN PRN IV 07/23/25 10:45 07/27/25 14:58 10 MG Ondansetron HCl 4 mg Q6HPRN PRN IV 07/23/25 10:45 07/28/25 08:42 4 MG Hydromorphone HCl 0.5 mg Q2HPRN PRN IV 07/23/25 12:00 07/27/25 22:22 0.5 MG Metronidazole 100 ml @ 100 mls/hr Q8HR IV 07/23/25 14:00 07/28/25 13:20 100 MLS/HR Potassium Chloride/Sodium Chloride 1,000 ml @ 75 mls/hr [id number] IV 07/24/25 10:45 Cancel Pantoprazole Sodium 40 mg BID IV 07/24/25 14:15 07/28/25 10:07 40 MG Piperacillin Sod/ Tazobactam Sod 100 ml @ 25 mls/hr Q8HR IV 07/25/25 06:00 07/28/25 06:19 25 MLS/HR Docusate Sodium 100 mg BIDPRN PRN PO 07/26/25 13:00 07/26/25 18:41 100 MG Diagnostic Test (Pha) 1 strip Q6HR 07/27/25 00:00 07/27/25 18:04 1 STRIP Insulin Human Regular FOLLOW SLIDING SCALE Q6HR SC 07/27/25 00:00 07/27/25 18:12 2 UNITS Dextrose 50 ml UD IV 07/26/25 22:00 Nifedipine 60 mg DAILY PO 07/27/25 17:15 07/28/25 10:06 60 MG Laboratory Laboratory Tests 07/28/25 07:50 Test 07/28/25 07:50 Range/Units Serum Glucose 100 74-106 mg/dL Microbiology Date/Time Source Procedure Growth Status 07/23/25 02:42 Blood Blood Culture - Final NO GROWTH AFTER 5 DAYS OF INCUBATION. Complete Examination: GENERAL:Normal, ABDOMEN:Normal (Nondistended, soft, depressible, nontender, midline scar well healed) Labs and/or images reviewed: Labs reviewed by me (No leukocytosis, low potassium (to be replaced)) Problem List/Assessment/Plan Assessment and Plan Mrs. Hewitt is a 84-year-old female who presented yesterday with terminal ileitis seen on CT. Patient condition continues to improve, she had 3 large bowel movements yesterday and then 3 more later. Patient tolerated clear liquid diet. Given that she continues to improve I recommend discontinuing the NG tube, advancing her to a regular diet and if she tolerates she can be discharged as early as this afternoon or early tomorrow. Recommend 1. Advance diet as tolerated with a goal of regular diet 2. Okay to switch antibiotics to oral, recommend Augmentin 875 mg p.o. b.i.d. for a total of 10-14 days minus hospital days of antibiotics 3. Discontinue NG tube 4. Colace 100 mg b.i.d. 5. Advised patient to hold her home Lomotil and MiraLax for at least 2 months after symptom resolution 6. avoid narcotic medications Plan discussed with Plan discussed with: Patient Visit Coding Surgery Date of Service if different f: Jul 28, 2025 Billing Provider: MARTA HERNANDEZ MD Surgery Visit Codes: [id number] INP/OBS CARE(HIGH) MARTA HERNANDEZ MD Jul 28, 2025 16:41
--- NOTE | 2025-07-28 18:03 | DVHPN2 ---
Progress Note Date Seen: Jul 28, 2025 Medical Necessity Reason Pt with a Central, PICC or Fol: Yes The following are medically ne: Pimentel Catheter Subjective Patient reports: Other (No new complaints) Objective vital signs Vital Sign Date Time Temp Pulse Resp B/P (MAP) Pulse Ox O2 Delivery O2 Flow Rate FiO2 07/28/25 17:27 97.8 84 18 159/73 (101) 92 97.8 07/28/25 10:07 Nasal Cannula* 3 32 Total Intake and Output 07/27/25 07/27/25 07/28/25 15:00 23:00 07:00 Intake Total 500 ml 300 ml Output Total 700 ml 450 ml Balance -200 ml -150 ml medications Current Medications Medications Dose Ordered Sig/Alexa Route Start Time Stop Time Status Last Admin Dose Admin Albuterol 2.5 mg Q4HPRN PRN NEB 07/23/25 00:45 Ipratropium [place] 0.5 mg Q4HPRN PRN NEB 07/23/25 00:45 Ondansetron HCl 4 mg Q4HPRN PRN IV 07/23/25 10:30 UNV Hydralazine HCl 10 mg Q6HPRN PRN IV 07/23/25 10:45 07/27/25 14:58 10 MG Ondansetron HCl 4 mg Q6HPRN PRN IV 07/23/25 10:45 07/28/25 08:42 4 MG Hydromorphone HCl 0.5 mg Q2HPRN PRN IV 07/23/25 12:00 07/27/25 22:22 0.5 MG Metronidazole 100 ml @ 100 mls/hr Q8HR IV 07/23/25 14:00 07/28/25 13:20 100 MLS/HR Potassium Chloride/Sodium Chloride 1,000 ml @ 75 mls/hr [id number] IV 07/24/25 10:45 Cancel Pantoprazole Sodium 40 mg BID IV 07/24/25 14:15 07/28/25 10:07 40 MG Piperacillin Sod/ Tazobactam Sod 100 ml @ 25 mls/hr Q8HR IV 07/25/25 06:00 07/28/25 06:19 25 MLS/HR Docusate Sodium 100 mg BIDPRN PRN PO 07/26/25 13:00 07/26/25 18:41 100 MG Diagnostic Test (Pha) 1 strip Q6HR 07/27/25 00:00 07/27/25 18:04 1 STRIP Insulin Human Regular FOLLOW SLIDING SCALE Q6HR SC 07/27/25 00:00 07/27/25 18:12 2 UNITS Dextrose 50 ml UD IV 07/26/25 22:00 Nifedipine 60 mg DAILY PO 07/27/25 17:15 07/28/25 10:06 60 MG laboratory and microbiology Laboratory Tests 07/28/25 07:50 Test 07/28/25 07:50 Range/Units Serum Glucose 100 74-106 mg/dL Microbiology Date/Time Source Procedure Growth Status 07/23/25 02:42 Blood Blood Culture - Final NO GROWTH AFTER 5 DAYS OF INCUBATION. Complete Problem List/Assessment/Plan Problem List/Assessment/Plan Acute kidney injury superimposed Chronic Kidney Disease secondary hemodynamic mediated, FeNa <1% Dehydration Terminal ileitis Hyponatremia due to dehydration Hypokalemia due to potassium depletion Sepsis Hypertension Anemia of chronic kidney disease Mild proteinuria Complex left kidney lesion 2.1 cm ?cyst recs better renal function per ct--left renal cyst with calcification Acceptable sodium levels Plan discussed with: Patient Dietary Evaluation Review Recommendations by RD: Dietary education by RD Comments: 1) If patient remains NPO > 7 days, consider EN/TPN to meet at least 75% of estimated daily needs 2) Advance to cardiac diet when medically feasible 3) Refer to outpatient RD for weight management 4) Follow-up with gastroenterology, cardiology, pulmonology, and nephrology 5) Continue to monitor I&O, labs, and skin integrity Expected Outcomes/Goals: 1) patient to receive nutritional support within 7 days of NPO status 2) labs to improve 3) diet to advance 4) f/u in 3-5 days NASREEN HULL MD Jul 28, 2025 18:03
== END 2025-07-28 17:53 | disposition home or self-care (01) | DRG 871 ==
LOC: ER 12:38 → OVERFLOW 21:54 → TELE-CENTR 07-23 15:49
PROVIDERS: ADMIT Student in an Organized Health Care Education/Training Program; ATTEND Student in an Organized Health Care Education/Training Program
PROC: 0D9670Z Drainage of Stomach with Drainage Device, Via Natural or Artificial Opening (ICD-10-PCS; principal; 2025-07-24)
DX: A41.9 Sepsis, unspecified organism (principal); J96.01 Acute respiratory failure with hypoxia; N17.0 Acute kidney failure with tubular necrosis; E87.1 Hypo-osmolality and hyponatremia; I13.0 Hypertensive heart and chronic kidney disease with heart failure and stage 1 through stage 4 chronic kidney disease, or unspecified chronic kidney disease; E87.20 Acidosis, unspecified; K50.012 Crohn's disease of small intestine with intestinal obstruction; K55.1 Chronic vascular disorders of intestine; A09 Infectious gastroenteritis and colitis, unspecified; D63.1 Anemia in chronic kidney disease; E86.0 Dehydration; E87.6 Hypokalemia; D64.9 Anemia, unspecified; N18.9 Chronic kidney disease, unspecified; E78.5 Hyperlipidemia, unspecified; G89.29 Other chronic pain; I50.9 Heart failure, unspecified; I25.10 Atherosclerotic heart disease of native coronary artery without angina pectoris; M10.9 Gout, unspecified; J43.9 Emphysema, unspecified; N28.1 Cyst of kidney, acquired; I70.1 Atherosclerosis of renal artery; Z88.2 Allergy status to sulfonamides; Z88.5 Allergy status to narcotic agent; Z91.010 Allergy to peanuts; Z79.82 Long term (current) use of aspirin; Z79.899 Other long term (current) drug therapy; Z90.710 Acquired absence of both cervix and uterus; Z80.3 Family history of malignant neoplasm of breast; Z82.49 Family history of ischemic heart disease and other diseases of the circulatory system; Z83.3 Family history of diabetes mellitus; Z82.5 Family history of asthma and other chronic lower respiratory diseases
CPT/HCPCS: 36415; 71045; 71275; 74018; 74177; 76700; 76775; 80048; 80053; 81001; 82306; 82378; 82570; 82962; 83036; 83605; 83690; 83735; 83930; 83935; 83970; 84100; 84156; 84300; 84443; 84478; 84484; 84550; 85007; 85025; 85027; 85379; 85610; 85652; 85730; 86141; 86256; 86671; 87040; 93970; 96365; 96375; 97110; 97116; 97163; 97530; G0378; J1815; J1885; J2003; J2405; J2470; J2543; J3480; J3490; Q0162

== ENCOUNTER → 2025-09-22 | Outpatient (CLI) | payer OTHER, MEDICAID ==
[~2025-09-22] MED LIST changes: +AUG875T PO; -CARV-216 PO; -CHLO25TA2 PO; +DOCU-265 PO; -LOSA-534 PO
[2025-09-22 10:38] LABS: Albumin 4.1 g/dL (3.2-4.8); Alkaline Phosphatase 63 U/L (46-116); Anion Gap 13 (5-15); BUN/Creatinine Ratio 13.1 (10.0-20.0); Bilirubin, Total 0.4 mg/dL (0.2-1.0); Blood Urea Nitrogen 11 mg/dL (9-23); Calcium 9.8 mg/dL (8.7-10.4); Carbon Dioxide 25 mmol/L (20-31); Chloride 100 mmol/L (98-107); Glucose 95 mg/dL (74-106); Potassium 3.5 mmol/L (3.5-5.1); Sodium 138 mmol/L (136-145); Total Protein 7.1 g/dL (5.7-8.2)
[2025-09-22 10:40] LABS: Alanine Aminotransferase < 9 U/L (7-40)
== END | disposition home or self-care (01) ==
LOC: LAB 09:58
PROVIDERS: ATTEND Internal Medicine Hematology & Oncology
DX: Z01.812 Encounter for preprocedural laboratory examination (principal)
CPT/HCPCS: 36415; 80053